=== PATIENT | male | born 1960 | race Caucasian/White ===

== ENCOUNTER → 2017-09-07 07:18 | Outpatient (CLI) | payer BC, SELFPAY ==
[2017-09-07 08:57] LABS: AST(SGOT) 15 U/L (15-37); Alanine Aminotransfer ALT/SGPT 32 U/L (16-61); Albumin, Serum 3.5 g/dL (3.2-5.0); Alkaline Phosphatase 83 U/L (45-117); Bilirubin, Direct 0.06 mg/dL (0.00-0.30); Cholesterol 108 mg/dL (200); Globulin 3.2 g/dL (2.2-4.2); High Density Lipoprotein 33 mg/dL; Protein, Total 6.7 g/dL (6.4-8.2); Triglycerides 140 mg/dL; Very Low Density Lipoprotein 28 mg/dL (5-40)
== END ==
PROVIDERS: Visit Provider Physician Assistant Medical
DX: J20.9 Acute bronchitis, unspecified (principal); Z79.899 Other long term (current) drug therapy; I10 Essential (primary) hypertension; I25.10 Atherosclerotic heart disease of native coronary artery without angina pectoris; E78.5 Hyperlipidemia, unspecified; I25.2 Old myocardial infarction; R50.9 Fever, unspecified; Z95.818 Presence of other cardiac implants and grafts
CPT/HCPCS: 36415; 80061; 80076

== ENCOUNTER → 2018-04-12 07:12 | Outpatient (CLI) | payer BC, SELFPAY ==
[2018-03-29 15:56] VITALS: BMI 33.7
[2018-04-12 08:08] LABS: AST(SGOT) 23 U/L (15-37); Alanine Aminotransfer ALT/SGPT 48 U/L (16-61); Albumin, Serum 3.7 g/dL (3.2-5.0); Alkaline Phosphatase 82 U/L (45-117); Anion Gap 6 (5-15); BUN 14 mg/dL (7-18); Bilirubin, Direct 0.13 mg/dL (0.00-0.30); Calcium,Total 8.5 mg/dL (8.5-10.1); Chloride 105 mmol/L (98-107); Cholesterol 115 mg/dL (200); Creatinine, Serum 0.93 mg/dL (0.70-1.30); EST Glomerular Filtration Rate 88 mL/min (>60); Est Glom Filt Rate - Afr Amer 107 mL/min (>60); Globulin 3.1 g/dL (2.2-4.2); Glucose 129 mg/dL (74-106); High Density Lipoprotein 30 mg/dL; Potassium 4.4 mmol/L (3.5-5.1); Protein, Total 6.8 g/dL (6.4-8.2); Sodium Level 138 mmol/L (136-145); Triglycerides 192 mg/dL; Very Low Density Lipoprotein 38 mg/dL (5-40)
== END ==
PROVIDERS: Referring Provider Physician Assistant Medical; Visit Provider Physician Assistant Medical
DX: E78.5 Hyperlipidemia, unspecified (principal); I25.10 Atherosclerotic heart disease of native coronary artery without angina pectoris; I10 Essential (primary) hypertension
CPT/HCPCS: 36415; 80048; 80061; 80076

== ENCOUNTER → 2018-10-24 07:10 | Outpatient (CLI) | payer BC, SELFPAY ==
[2018-03-29 15:56] VITALS: BMI 33.7
[2018-10-24 08:03] LABS: AST(SGOT) 13 U/L (15-37); Alanine Aminotransfer ALT/SGPT 32 U/L (16-61); Albumin, Serum 3.8 g/dL (3.2-5.0); Alkaline Phosphatase 93 U/L (45-117); Cholesterol 115 mg/dL (200); Globulin 3.1 g/dL (2.2-4.2); High Density Lipoprotein 36 mg/dL; Protein, Total 6.9 g/dL (6.4-8.2); Triglycerides 179 mg/dL; Very Low Density Lipoprotein 36 mg/dL (5-40)
== END ==
PROVIDERS: Referring Provider Physician Assistant Medical; Visit Provider Physician Assistant Medical
DX: E78.5 Hyperlipidemia, unspecified (principal)
CPT/HCPCS: 36415; 80061; 80076

== ENCOUNTER → 2019-11-14 07:27 | Outpatient (CLI) | payer BC, SELFPAY ==
[2018-10-24 15:55] VITALS: BMI 32.6
[2019-11-14 09:21] LABS: AST(SGOT) 28 U/L (15-37); Alanine Aminotransfer ALT/SGPT 62 U/L (16-61); Albumin, Serum 3.7 g/dL (3.2-5.0); Alkaline Phosphatase 91 U/L (45-117); Bilirubin, Direct 0.18 mg/dL (0.00-0.30); Cholesterol 113 mg/dL (200); Globulin 3.3 g/dL (2.2-4.2); High Density Lipoprotein 30 mg/dL; Triglycerides 147 mg/dL; Very Low Density Lipoprotein 29 mg/dL (5-40)
== END ==
PROVIDERS: Referring Provider Specialist; Visit Provider Specialist
DX: E78.00 Pure hypercholesterolemia, unspecified (principal)
CPT/HCPCS: 36415; 80061; 80076

== ENCOUNTER 2020-06-14 09:02 | Inpatient (IN) | payer BC, SELFPAY ==
[2019-11-14 14:17] VITALS: BMI 32.6
[2020-06-14] VITALS (14 sets, daily range): BP systolic 127–166; BP diastolic 70–128; PULSE 71–97; RESP 13–20; TEMP 36.6–37; O2SAT 96–98; BMI 33.8; BMI 32.5
--- NOTE | 2020-06-14 09:05 | CT_ITS ---
STUDY: CT HEAD STROKE PROTOCOL W/O CONTRAST INJECTION REASON FOR EXAM: Male, 60 years old. Neuro deficit, acute, stroke - ataxia L arm RADIATION DOSAGE (If Supplied By Facility): CTDIvol = ( 44.99 ) mGy, DLP = ( 846.73 ) mGycm TECHNIQUE: Transaxial CT imaging of the brain was performed without administration of intravenous contrast material. Individualized dose optimization techniques were used for this CT. COMPARISON: No relevant priors. FINDINGS: Normal soft tissue structures. Normal calvarium. Normal size ventricles and extra-axial spaces for the patient''s age. There is a 9.7 mm x 8.4 mm lacuna in the medial anterior aspect of the right temporal lobe. Tiny lacuna in the posterior limb of the right internal capsule. Normal brainstem. Normal cerebellum. There is no intracranial hemorrhage. There are no findings of an acute ischemic infarction. Normal visualized paranasal sinuses. CT/STROKE Brain/Head without Cont IMPRESSION: Tiny lacunar is seen in the posterior limb of the left internal capsule. 9.7 mm x 8.4 cm focal area of decreased attenuation in the medial aspect of the right temporal lobe. N.B. : The above information has been verbally conveyed by Yovani Michelle MD to Letitia Tirado on 06/14/2020 09:23:19 (ET). Electronically Signed: Yovani Michelle MD at 9:24 EDT , Service support ,
--- NOTE | 2020-06-14 09:05 | EKG12_ITS ---
Test Reason : STROKE Blood Pressure : / mmHG Vent. Rate : 090 BPM Atrial Rate : 090 BPM P-R Int : 144 ms QRS Dur : 076 ms QT Int : 368 ms P-R-T Axes : 062 034 052 degrees QTc Int : 450 ms Normal sinus rhythm Normal ECG Confirmed by MIA SU, SUN ([id number]), photographic editor JOSE IVERSON ([id number]) on 06/18/2020 10:53:10 AM Referred By: MARCELA Confirmed By:SUN BELLAMY MD
--- NOTE | 2020-06-14 09:06 | CT_ITS ---
STUDY: CTA HEAD AND NECK WITH CONTRAST REASON FOR EXAM: Male, 60 years old. Neuro deficit, acute, stroke suspected RADIATION DOSAGE (If Supplied By Facility): CTDIvol = ( 19.96 ) mGy, DLP = ( 732.12 ) mGycm TECHNIQUE: CT angiography was performed with a multi-detector CT scanner. Data acquisition was obtained from the skull base through the vertex following intravenous administration of IV 100mL Isovue-[id number]. MIP images were reconstructed from the axial data set. Post-processing of the angiographic images was performed, with multiplanar reformation and 3D reconstruction. Individualized dose optimization techniques were used for this CT. COMPARISON: No relevant priors. FINDINGS: Normal bilateral petrous carotid arteries. There is calcified plaque formation of the right cavernous carotid artery, without a cross-sectional luminal stenosis. There is calcified plaque formation of the left cavernous carotid artery, without a cross-sectional luminal stenosis. Normal right A1 segments of the anterior cerebral artery. Normal left A1 segments of the anterior cerebral artery. Normal intact anterior communicating artery (ACOM). Normal bilateral A2 segments of the anterior cerebral arteries. Normal right M1 and M2 segments of the middle cerebral arteries, with a normal M1 bifurcation. Normal left M1 and M2 segments of the middle cerebral arteries, with a normal M1 bifurcation. Normal right posterior communicating artery (PCOM). Normal left posterior communicating artery (PCOM). Normal bilateral vertebral arteries. Normal basilar artery with a normal basilar bifurcation. The visualized bilateral superior cerebellar (SCA) arteries are normal. Normal bilateral P1, P2 and visualized P3 segments of the posterior cerebral arteries. There is no demonstrated aneurysm of the [place] of [place]. There is no demonstrated abnormality of the visualized brain. Mild enlargement of the right lobe of the thyroid with a questionable 2.5 cm x 2.1 cm nodule in the inferior aspect of the right lobe of the thyroid. AORTIC ARCH: Normal visualized aortic arch. Normal origins of the brachiocephalic, left common carotid, and left subclavian arteries. RIGHT CAROTID ARTERIES: Normal right common carotid artery (CCA). Normal right common carotid bulb. There is extensive atherosclerotic plaque formation of the origin of the right internal carotid artery with an estimated stenosis of greater than 70%. Normal visualized cervical portion of the right internal carotid artery. Normal origin of the right external carotid artery (ECA). LEFT CAROTID ARTERIES: Normal left common carotid artery (CCA). Normal left common carotid bulb. There is mild atherosclerotic plaque formation of the origin of the left internal carotid artery with less than 50% cross sectional diameter stenosis. Normal visualized cervical portion of the left internal carotid artery. Normal origin of the left external carotid artery (ECA). VERTEBRAL ARTERIES: Normal bilateral vertebral arteries. CT/STROKE CTA Head AND Neck W/Con IMPRESSION: Calcific plaque at the origin of the right internal carotid artery causing greater than 70% narrowing. N.B. : The above information has been verbally conveyed by Yovani Michelle MD to Letitia Tirado on 06/14/2020 09:40:06 (ET). Electronically Signed: Yovani Michelle MD at 9:40 EDT , Service support ,
[2020-06-14 09:13] LABS: Absolute Neutrophil Count 6.1 X10^3/uL (2.0-7.7); Basophil# 0.03 X10^3/uL; Basophil% 0.3 % (0-1); Eosinophil# 0.08 X10^3/uL; Eosinophils% 0.9 % (0-5); Hematocrit 48.7 % (40-54); Mean Corp Hgb Conc 32.9 g/dL (32-36); Mean Corpuscular Hgb 31.4 pg (27.0-32.0); Mean Corpuscular Volume 95.5 fL (80-94); Mean Platelet Vol. 9.4 fl (6.2-12.0); Monocyte# 0.69 X10^3/uL; Monocyte% 7.5 % (0-10); NRBC Flagged by Analyzer 0 % (0-5); Neutrophil # 6.12 X10^3/uL (2.7-7.7); Neutrophil % 66.9 % (47-70); Platelet Count 251 K/mm3 (150-450); RBC Distribution Width CV 12.5 % (11.6-14.6); RBC Distribution Width SD 44.3 fl (35.1-43.9); White Blood Count 9.2 K/mm3 (4.4-11.0)
[2020-06-14 09:19] LABS: Prothrombin Time (Protime)PT. 12.1 SECONDS (11.7-14.9)
[2020-06-14 09:20] LABS: Bedside Glucose 212 mg/dL (70-110)
[2020-06-14 09:20] LABS: Partial Thromboplast Time 24.8 Seconds (24.1-36.2)
--- NOTE | 2020-06-14 09:24 | ED.VIS.STROK ---
HPI History of Present Illness Chief Complaint: Neuro S/Sx Informant: patient Narrative Narrative: Patient is a 60-year-old male with history of cardiac disease presenting with concern of difficulty moving/controlling his left arm. Patient states he woke up around 5:45 AM. He states that he slept with his left arm under his pillow. When he got up he states his arm was moving but he could not control it. Everything seem to go back to normal but then about an hour prior to arrival he was on the computer and he again felt that he could not control his arm. He also felt that he was dragging his left foot more than normal. Patient came to the emergency room. His symptoms started 1 hour prior to arrival. Patient [place] any sustained vision changes or change in speech. Denies any history of stroke. He did take 324 mg of aspirin prior to arrival. Denies any history of stroke. Is right-hand dominant. Prior similar symptoms: No PFSH PFS Medical History (Updated 06/14/20 @ 10:[address] 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) HTN (hypertension) Hyperlipidemia Home Medications aspirin 81 mg tablet,delayed release 81 mg PO QDAY 09/03/17 [History Last Taken Unknown] nitroglycerin 0.4 mg sublingual tablet 0.4 mg SUBLINGUAL Q5-15M PRN #25 tab 10/24/18 [Rx Last Taken Unknown] metoprolol tartrate 25 mg tablet 25 mg PO BID #180 tab 12/19/18 [Rx Last Taken Unknown] atorvastatin 40 mg tablet 40 mg PO QHS #90 tab 03/01/20 [Rx Last Taken Unknown] cholecalciferol (vitamin D3) 50 mcg (2,000 unit) capsule 2,000 unit PO DAILY #90 cap 03/01/20 [Rx Last Taken Unknown] lisinopril 40 mg tablet 40 mg PO QDAY #90 tab 03/01/20 [Rx Last Taken Unknown] Allergy/AdvReac Type Severity Reaction Status Date / Time No Known Allergies Allergy Verified 11/14/19 14:09 Family History Father , Age 55 Asbestos exposure Cancer Mother , Age 71 Lung cancer Surgical History Stented coronary artery (03/2008) Social History Smoking Status: Current some day smoker how long ago did patient quit smokin months ago quit status: has quit before alcohol intake: current details: rarely substance use type: does not use caffeine: Yes Type: carbonated beverages Number of servings: 3 ROS ROS ED Constitutional Constitutional ED: Denies chills or fever(s) Eyes Eyes: Denies blurry vision or change in vision ENT ENT ED: Denies change in voice or vertigo Cardiovascular Cardiovascular: Denies chest pain or hypertension Respiratory/Chest Respiratory/Chest: Denies chest tightness, shortness of breath at rest or other Gastrointestinal Gastrointestinal: Denies nausea or vomiting Genitourinary Genitourinary ED: Denies dysuria or hematuria Musculoskeletal Musculoskeletal: Denies abnormal gait, difficulty walking or muscle weakness Integumentary Denies new lesions or rash Neurologic Neurologic: Reports paresthesias and weakness; Denies headache(s) Psychiatric Psychiatric: Denies anxiety or confusion EXAM Physical Exam Const Vital Signs: 06/14/20 09:11 Temperature 98.6 F Temperature Source Temporal Pulse Rate 87 Respiratory Rate 19 H Blood Pressure 164/90 H Blood Pressure Mean 114 Pulse Ox 98 Oxygen Delivery Method Room Air Positive well nourished and well developed General Appearance ED: active, cooperative, comfortable and well developed HEENT Reports normocephalic, TM's clear and moist mucous membranes atraumatic Nose: external nose normal Tympanic Membrane ED: Yes TM's clear Eyes PERRL and EOMs intact bilaterally Eyes Narrative: No nystagmus Neck full ROM, No nuchal rigidity and no meningeal signs Chest Wall inspection of chest normal Resp normal respiratory effort and normal air movement Cardio regular rate and regular rhythm GI normal to inspection, nondistended, normoactive bowel sounds Extremity normal to inspection, full ROM and normal capillary refill Neuro oriented x3, CN's II-XII intact bilaterally and no sensory deficits noted Neuro Narrative: Ataxia with [id number] of the left upper extremity. No truncal ataxia or lower extremity ataxia noted. No neglect appreciated. NIH equals 1, see NIH below. Sensorium / Orientation: alert Speech: speech normal Motor Exam: strength 5/5 throughout Psych mental status grossly normal and thought process normal STROKE Vital Signs/Narrative: Vital Signs Temp Pulse Resp BP Pulse Ox 06/14/20 09:11 98.6 F 87 19 H 164/90 H 98 NIHSS Initial: 1a Level of Consciousness: 0 1b LOC Questions (Score 2 if aphasic/stupor): 0 1c LOC Commands (Only score 1st attempt): 0 2 Best Gaze (If aphasic, use reflexive mvmts.): 0 3 Visual: 0 4 Facial Palsy: 0 5 Motor Arm Right (UN = amputation/fusion): 0 5 Motor Arm Left: 0 6 Motor Leg Right: 0 6 Motor Leg Left: 0 7 Limb ataxia (Only + if out of proportion): 1 (LUE) 8 Sensory (Aphasia/stupor=0 or 1, coma=2): 0 9 Best Language: 0 10 Dysarthria (mute, coma=2, intubated=UN): 0 11 Extinction and Inattention (only scored if +): 0 Total Score: 1 MDM MDM MDM Narrative Medical decision making narrative: Patient is evaluated for difficulty controlling his left arm. He does have associated ataxia. He does not have any other ataxia, vertigo or any other neurologic symptoms. His nature is 1. Stroke alert is called however I do not think he needs TPA. There is a delay in telestroke however patient is evaluated by teleneurology. CT of the brain shows old lacunar infarcts. Patient denies any prior strokes or any prior neurologic symptoms. Patient evaluated by teleneurology who agrees that his he does not require TPA. His NIH is now 0. Patient be admitted to hospitalist service for further stroke evaluation including MRI. Patient agreeable to splenic care. He is stable while in the ER. Lab Data Attestation: I reviewed the patient's lab results. Labs: Laboratory Results - last 24 hr 06/14/20 06/14/20 06/14/20 09:05 09:05 09:05 WBC 9.2 RBC 5.10 Hgb 16.0 Hct 48.7 MCV 95.5 H MCH 31.4 MCHC 32.9 RDW Std Deviation 44.3 H RDW Coeff of [place] 12.5 Plt Count 251 MPV 9.4 Immature Gran % (Auto) 0.400 Neut % (Auto) 66.9 Lymph % (Auto) 24.0 [place] % (Auto) 7.5 Eos % (Auto) 0.9 Baso % (Auto) 0.3 Absolute Neuts (auto) 6.1 Absolute Lymphs (auto) 2.20 Nucleated RBC % 0 PT 12.1 INR 1.0 APTT 24.8 Sodium 139 Potassium 3.9 Chloride 103 Carbon Dioxide 31.0 Anion Gap 5 BUN 13 Creatinine 0.98 Estim Creat Clear Calc 87.98 Est GFR (MDRD) Af Amer 100 Est GFR (MDRD) Non-Af 83 BUN/Creatinine Ratio 13.2 Glucose 210 H Calcium 8.8 Troponin I < 0.015 POC Glucose 06/14/20 09:18 WBC RBC Hgb Hct MCV MCH MCHC RDW Std Deviation RDW Coeff of [place] Plt Count MPV Immature Gran % (Auto) Neut % (Auto) Lymph % (Auto) [place] % (Auto) Eos % (Auto) Baso % (Auto) Absolute Neuts (auto) Absolute Lymphs (auto) Nucleated RBC % PT INR APTT Sodium Potassium Chloride Carbon Dioxide Anion Gap BUN Creatinine Estim Creat Clear Calc Est GFR (MDRD) Af Amer Est GFR (MDRD) Non-Af BUN/Creatinine Ratio Glucose Calcium Troponin I POC Glucose 212 H Radiography Chest X-Ray - ED: 1 View, Read by ED Physician, Read by Radiologist and No Acute Disease Diagnostic Testing: Radiology Impression Brain CT 06/14/20 09:05 IMPRESSION: Tiny lacunar is seen in the posterior limb of the left internal capsule. 9.7 mm x 8.4 cm focal area of decreased attenuation in the medial aspect of the right temporal lobe. N.B. : The above information has been verbally conveyed by Yovani Michelle MD to Letitia Tirado on 06/14/2020 09:23:19 (ET). Electronically Signed: oYvani Michelle MD at 9:24 EDT , Service support , ADDENDUM: 06/14/20 0931 IMPRESSION: Tiny lacunar is seen in the posterior limb of the left internal capsule. 9.7 mm x 8.4 cm focal area of decreased attenuation in the medial aspect of the right temporal lobe. N.B. : The above information has been verbally conveyed by Yovani Michelle MD to Letitia Tirado on 06/14/2020 09:23:19 (ET). Electronically Signed: Yovani Michelle MD at 9:24 EDT , Service support , Head/Neck CTA 06/14/20 09:06 IMPRESSION: Calcific plaque at the origin of the right internal carotid artery causing greater than 70% narrowing. N.B. : The above information has been verbally conveyed by Yovani Michelle MD to Letitia Celestino on 06/14/2020 09:40:06 (ET). Electronically Signed: Yovani Michelle MD at 9:40 EDT , Service support , ADDENDUM: 06/14/2047 IMPRESSION: Calcific plaque at the origin of the right internal carotid artery causing greater than 70% narrowing. N.B. : The above information has been verbally conveyed by Yovani Michelle MD to Letitiachidi Lindajames on 06/14/2020 09:40:06 (ET). Electronically Signed: Yovani Michelle MD at 9:40 EDT , Service support , Chest X-Ray 06/14/20 09:36 IMPRESSION: Hyperinflation. The lungs are clear. Electronically Signed: Yovani Michelle MD at 10:00 EDT , Service support , Rhythm Strip Rhythm Strip: Sinus Rhythm Rate: 90 Ectopy: None EKG Initial EKG: Attestation: I personally reviewed and interpreted this EKG as follows: Interpretation: Sinus Rhythm Comments: Normal sinus rhythm rate of 90 Normal axis Normal intervals Normal ST segments Artifact in lead V3 Stroke Documentation Questions Stroke Team Activated: Yes Reviewed Inclusion/Exclusion criteria: Yes Was Patient considered for Endovascular Intervention?: No IV Alteplase (t-PA) Administered: No Discharge Plan Triage Chief Complaint: Neuro S/Sx ED Provider: Letitia Tirado Dx/Rx/DC Orders Clinical Impression: Ataxia of left upper extremity, Stroke-like symptom, Essential hypertension, Atherosclerotic heart disease of [place] coronary artery without angina pectoris Prescriptions: No Action aspirin [Adult Aspirin Regimen] 81 mg tablet,delayed release (DR/EC) 81 mg PO QDAY RF: 0 nitroglycerin [Nitrostat] 0.4 mg tablet, sublingual 0.4 mg SUBLINGUAL Q5-15M PRN (Reason: chest pain) Qty: 25 RF: 3 metoprolol tartrate 25 mg tablet 25 mg PO BID Qty: 180 RF: 3 atorvastatin 40 mg tablet 40 mg PO QHS Qty: 90 RF: 3 lisinopril 40 mg tablet 40 mg PO QDAY Qty: 90 RF: 3 cholecalciferol (vitamin D3) 50 mcg (2,000 unit) capsule 2,000 unit PO DAILY Qty: 90 RF: 3 Primary Care Provider: Care Physician,No Primary Referrals: Care Physician,No Primary [Primary Care Provider] - Disposition Disposition: Acute Care Hospital [facility]
[2020-06-14 09:29] LABS: Anion Gap 5 (5-15); BUN 13 mg/dL (7-18); BUN/Creat Ratio 13.2 RATIO (10-20); Calcium,Total 8.8 mg/dL (8.5-10.1); Chloride 103 mmol/L (98-107); Creatinine, Serum 0.98 mg/dL (0.70-1.30); EST Glomerular Filtration Rate 83 mL/min (>60); Est Glom Filt Rate - Afr Amer 100 mL/min (>60); Estimated Creatinine Clearance 87.98 ml/min; Glucose 210 mg/dL (74-106); Potassium 3.9 mmol/L (3.5-5.1); Sodium Level 139 mmol/L (136-145)
--- NOTE | 2020-06-14 09:36 | RAD_ITS ---
STUDY: X-RAY CHEST REASON FOR EXAM: Male, 60 years old. Neuro deficit, acute, stroke suspected TECHNIQUE: Single AP portable view of the chest. COMPARISON: None. FINDINGS: EKG electrodes are seen. Hyperinflation. The lungs are clear. There is no demonstrated pleural abnormality. Normal size heart. Normal mediastinum and charles. Normal visualized pulmonary arteries. Normal visualized aortic arch and descending thoracic aorta. Normal visualized thoracic spine. Normal visualized ribs, clavicles, and shoulders. There is no demonstrated abnormality of the visualized soft tissue structures of the upper abdomen. RAD/Chest 1 View IMPRESSION: Hyperinflation. The lungs are clear. Electronically Signed: Yovani Michelle MD at 10:00 EDT , Service support ,
--- NOTE | 2020-06-14 09:39 | ED.RN ---
THIS NURSE CALLED BACK [facility] SOON THE PT GOT BACK FROM CT AT 09,PER [facility] THE NEUROLOGIST IS WITH ANOTHER PT. [facility] CALLED BACK TO LET US KNOW THAT THEY ARE STILL BUSY WITH OTHER PT'S. THE PT HAS STILL NOT SPOKEN WITH THE NEUROLOGIST AT 09.
--- NOTE | 2020-06-14 10:21 | PCM.HP.STD ---
HPI - General General Date of Admission: 06/14/20 Chief Complaint: Left upper extremity numbness - 1 day HPI Narrative TK MITCHELL, is a 60 M who presents with numbness of the left upper extremity noticed at 7 AM. Patient has history of CAD status post stents. He was in his usual state of health until this morning around 7 AM when he noted that his left arm was numb and it felt like he had slept on it. He denied any dizziness or palpitations or chest pain or weakness in any of his extremities. At the time of being seen, symptoms were starting to come back again. He denied any history of stroke. No recent medications. His vitals in the ED initially show temperature 166/128, heart rate 96, temperature 98.3 F, respiratory 13, saturating 96% on room air. His admitting blood work was unremarkable. Initial CT of the head was unremarkable except for tiny lacunar changes seen in the posterior limb of the left internal capsule, 9.7 mm x 8.4 mm lacunae in the medial anterior aspect of the right temporal lobe. CT of the head shows more than 70% narrowing of the right internal carotid artery origin. Admitting chest x-ray is unremarkable. [facility] Medical History Atherosclerotic heart disease of [place] coronary artery without angina pectoris Chest pain Essential hypertension History of inferior wall myocardial infarction (04/06/08) HTN (hypertension) Hyperlipidemia Myocardial infarct Smoker Home Medications aspirin 81 mg tablet,delayed release 81 mg PO QDAY 09/03/17 [History Last Taken 06/14/20] nitroglycerin 0.4 mg sublingual tablet 0.4 mg SUBLINGUAL Q5-15M PRN #25 tab 10/24/18 [Rx Last Taken Unknown] atorvastatin 40 mg PO DAILY 06/14/20 [History Last Taken 06/13/20] cholecalciferol (vitamin D3) 2,000 unit PO DAILY 06/14/20 [History Last Taken 06/13/20] lisinopril 40 mg PO QDAY 06/14/20 [History Last Taken 06/13/20] metoprolol tartrate 25 mg PO BID 06/14/20 [History Last Taken 06/13/20] Allergy/AdvReac Type Severity Reaction Status Date / Time No Known Allergies Allergy Verified 11/14/19 14:09 Family History Father , Age 55 Asbestos exposure Cancer Mother , Age 71 Lung cancer Surgical History Stented coronary artery (03/2008) Social History Smoking Status: Current some day smoker how long ago did patient quit smokin months ago quit status: has quit before alcohol intake: current details: rarely substance use type: does not use caffeine: Yes Type: carbonated beverages Number of servings: 3 ROS ROS Narrative Constitutional:. Denies: Malaise, Weakness, Fatigue, Anorexia, Chills, Fever, Night Sweats, Weight Change Eyes: Denies: Blurred vision, Cataracts, Conjunctivae Inflammation, Pain, Redness, Vision Change HEENT: Denies: Difficulty Hearing, Difficulty Swallowing, Head Aches, Hearing Changes, Sinus Congestion, Sinus Drainage Cardiovascular: Denies: Chest Pain, Orthopnea, Palpitations Respiratory: Denies: Cough, Shortness of breath at rest, Sputum production Gastrointestinal: Denies: Abdominal Pain, Nausea, Vomiting Genitourinary: Denies: Dysuria Musculoskeletal: Denies: Joint Pain, Joint stiffness, Joint swelling, Joint Tenderness Skin: Denies: Rash, Wounds Neurological: See HPI Vital Signs Vital Signs Vital Signs: 06/14/20 09:11 Temperature 98.6 F Temperature Source Temporal Pulse Rate 87 Respiratory Rate 19 H Blood Pressure 164/90 H Blood Pressure Mean 114 Pulse Ox 98 Oxygen Delivery Method Room Air Physical Exam Narrative Physical exam: General: Alert, Oriented x3, Cooperative, No apparent distress, Well developed HEENT: Atraumatic Oral: Moist Mucosa Neck: Supple Lungs: Clear to auscultation Cardiovascular: HS I+II, regular, no murmurs Abdomen: Bowel Sounds Present, Soft, Non Tender Extremities: No edema Skin: No rashes, No breakdown Neurological: Grossly intact except for decreased numbness in the left upper extremity Psych/Mental Status: Appropriate Lab / Micro Data Result Diagrams: 06/14/20 09:05 06/14/20 09:05 Labs: Laboratory Results - last 24 hr 06/14/20 06/14/20 06/14/20 09:05 09:05 09:05 WBC 9.2 RBC 5.10 Hgb 16.0 Hct 48.7 MCV 95.5 H MCH 31.4 MCHC 32.9 RDW Std Deviation 44.3 H RDW Coeff of [place] 12.5 Plt Count 251 MPV 9.4 Immature Gran % (Auto) 0.400 Neut % (Auto) 66.9 Lymph % (Auto) 24.0 [place] % (Auto) 7.5 Eos % (Auto) 0.9 Baso % (Auto) 0.3 Absolute Neuts (auto) 6.1 Absolute Lymphs (auto) 2.20 Nucleated RBC % 0 PT 12.1 INR 1.0 APTT 24.8 Sodium 139 Potassium 3.9 Chloride 103 Carbon Dioxide 31.0 Anion Gap 5 BUN 13 Creatinine 0.98 Estim Creat Clear Calc 87.98 Est GFR (MDRD) Af Amer 100 Est GFR (MDRD) Non-Af 83 BUN/Creatinine Ratio 13.2 Glucose 210 H Calcium 8.8 Troponin I < 0.015 POC Glucose 06/14/20 09:18 WBC RBC Hgb Hct MCV MCH MCHC RDW Std Deviation RDW Coeff of [place] Plt Count MPV Immature Gran % (Auto) Neut % (Auto) Lymph % (Auto) [place] % (Auto) Eos % (Auto) Baso % (Auto) Absolute Neuts (auto) Absolute Lymphs (auto) Nucleated RBC % PT INR APTT Sodium Potassium Chloride Carbon Dioxide Anion Gap BUN Creatinine Estim Creat Clear Calc Est GFR (MDRD) Af Amer Est GFR (MDRD) Non-Af BUN/Creatinine Ratio Glucose Calcium Troponin I POC Glucose 212 H Rhythm Strip Rhythm Strip: Sinus Rhythm Rate: 90 Ectopy: None Radiology Impression Brain CT 06/14/20 09:05 IMPRESSION: Tiny lacunar is seen in the posterior limb of the left internal capsule. 9.7 mm x 8.4 cm focal area of decreased attenuation in the medial aspect of the right temporal lobe. N.B. : The above information has been verbally conveyed by Yovani Michelle MD to Letitia Tirado on 06/14/2020 09:23:19 (ET). Electronically Signed: Yovani Michelle MD at 9:24 EDT , Service support , ADDENDUM: 06/14/20 0931 IMPRESSION: Tiny lacunar is seen in the posterior limb of the left internal capsule. 9.7 mm x 8.4 cm focal area of decreased attenuation in the medial aspect of the right temporal lobe. N.B. : The above information has been verbally conveyed by Yovani Michelle MD to Letitia Tirado on 06/14/2020 09:23:19 (ET). Electronically Signed: Yovani Michelle MD at 9:24 EDT , Service support , Head/Neck CTA 06/14/20 09:06 IMPRESSION: Calcific plaque at the origin of the right internal carotid artery causing greater than 70% narrowing. N.B. : The above information has been verbally conveyed by Yovani Michelle MD to Letitia Tirado on 06/14/2020 09:40:06 (ET). Electronically Signed: Yovani Michelle MD at 9:40 EDT , Service support , ADDENDUM: 06/14/20 0947 IMPRESSION: Calcific plaque at the origin of the right internal carotid artery causing greater than 70% narrowing. N.B. : The above information has been verbally conveyed by Yovani Michelle MD to Letitia Tirado on 06/14/2020 09:40:06 (ET). Electronically Signed: Yovani Michelle MD at 9:40 EDT , Service support , Chest X-Ray 06/14/20 09:36 IMPRESSION: Hyperinflation. The lungs are clear. Electronically Signed: Yovani Michelle MD at 10:00 EDT , Service support , Assessment & Plan Assessment/Plan (1) Carotid stenosis, right: Status: Acute Code(s): I65.21 - Occlusion and stenosis of right carotid artery (2) Ataxia of left upper extremity: Status: Acute Code(s): R27.0 - Ataxia, unspecified (3) Nicotine dependence: Status: Acute Code(s): F17.200 - Nicotine dependence, unspecified, uncomplicated (4) CVA (cerebral vascular accident): Status: Acute Code(s): I63.9 - Cerebral infarction, unspecified Plan: 60-year-old male with multiple cardiovascular comorbidities including CAD status post stent, chronic smoker who comes in complaining of left upper extremity numbness. CT of the head and neck was suggestive of lacunar infarcts in the posterior limb of the internal capsule and also right temporal region. He also had right internal carotid artery origin stenosis more than 70% We will admit to PCU, stroke work-up MRI brain, 2D echo, lipid profile, HbA1c PT/OT/ST to evaluate and treat Cardiac diet Vascular surgery consult Depending on the findings of his MRI we will get SOC consult Multi Select Codes Visit Charges Observation E&M Codin Initial observation care L3
--- NOTE | 2020-06-14 11:09 | MRI_ITS ---
STUDY: MRI BRAIN WITHOUT CONTRAST REASON FOR EXAM: Male, 60 years old. neurodeficits left arm weakness TECHNIQUE: Standardized multiplanar fat and water weighted pulse sequences were obtained. COMPARISON: Head CT dated JUNE 14, 2020 FINDINGS: There is mild cerebral atrophy with widening of the extra-axial spaces and ventricular dilatation. There are a limited number of small white matter hyperintensities, distributed throughout the deep white matter tracts of the cerebral hemispheres, consistent with mild chronic white matter ischemic changes. A tiny acute infarct is present in the superior aspect of the right parietal lobe in the yun radiata see images 23 and 24 series #4. Normal T2* images of the brain without demonstrated susceptibility artifact. There is no demonstrated hemosiderin stain. No hydrocephalus is seen. Benign perivascular cystic spaces of the right medial temporal midbrain junction. Normal bilateral basal ganglia. Normal thalami. There is no extra-axial fluid accumulation. Normal flow voids within the major intracranial circulation suggesting patency by spin echo criteria. Normal sella turcica, pituitary gland, infundibular stalk, optic chiasm and hypothalamus. Normal tectal plate and pineal gland. Normal midbrain, tobin and medulla. Normal cerebellum. Normal basal cisterns. Normal bilateral temporal bones. Normal bilateral internal auditory canals. No demonstrated orbital abnormality, within the constraints of a routine brain study. Normal visualized paranasal sinuses. Normal calvarium and skull base. Normal visualized soft tissue structures. Normal visualized upper cervical spine. MRI/Brain without Contrast IMPRESSION: 1. A tiny acute infarct is present in the superior aspect of the right parietal lobe in the yun radiata see images 23 and 24 series #4. N.B. : The above information has been verbally conveyed by Duncan Saldaña MD to DOMONIQUE Minaya RN, on 06/14/2020 19:13:17 (ET). Electronically Signed: Duncan Saldaña MD at 19:14 EDT , Service support ,
[2020-06-14] MEDS: 0.9% Normal Saline 1,000 ML 75 ML IV (11:25)
--- NOTE | 2020-06-14 14:24 | CON.PCM.SX_ITS ---
Assessment & Plan Assessment/Plan (1) Ataxia of left upper extremity: Status: Acute Code(s): R27.0 - Ataxia, unspecified (2) Stroke-like symptom: Status: Acute Code(s): R29.90 - Unspecified symptoms and signs involving the nervous system (3) Carotid stenosis, right: Status: Acute Code(s): I65.21 - Occlusion and stenosis of right carotid artery Plan: 60-year-old gentleman with findings consistent with right hemispheric TIA. Symptoms resolved. Carotid imaging suggest calcific plaque with greater than 70% stenosis of the right internal carotid however unfortunately images are of poor quality. The patient currently has been taken for an MRI. I recommend that we obtain carotid duplex imaging. He has ongoing medical care and neurology care. I am assuming his antiplatelet therapy will be intensified. He is hemoconcentrated with hemoglobin of 16 he is got ongoing cigarette tobacco use. He has history of hyperlipidemia hyperten josi and previous myocardial infarction. Medical maximization of his care would be indicated. What I can detect on the neck CTA is that the internal carotid is quite tortuous. Further recommendations will be made based upon the carotid duplex imaging. If his medical management can be maximized anticipate seeing him in short-term follow-up in the office this coming week. I appreciate the opportunity of assisting with the surgical care Castillo Weiss M.D., F.A.C.S. HPI Consult Data Date of Consult: 06/14/20 HPI Narrative HPI Narrative: TK MITCHELL, is a 60 M who presents today through the emergency room concerned about some ataxia of his left upper extremity as well as dragging weakness of his left foot. Neuro telemedicine performed. Patient was admitted for evaluation. I have received consult from Dr.Ama Yadav for suspected right carotid occlusive disease and a written compromise surgical consult recommendations will present in the charting. The patient is a long-term cigarette smoker. He continues to smoke at the rate of approximately a pack per week. He has had a previous myocardial infarction and stenting. His previous child welfare director was Dr. Jarred Owens. He has not seen his current child welfare director Dr. Arizmendi. He also does not know the name of his primary care physician.. He has not seen this particular primary care physician yet. 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 Claims that he does not typically have troubles. He claims that occasionally he will wake and after having slept on his left upper extremity and have decreased use. This episode seemed different because he was at the computer when it seemed to suddenly lack coordination. He does not take his blood pressure at home. He does state that he is compliant with his medications which includes low-dose aspirin and atorvastatin therapy in addition to lisinopril and metoprolol. He denies any recent episodes of chest pain. He complains of bilateral shoulder aches and pains. He has back pain when he tries to walk. He does not seem to describe exertional chest pain or shortness of breath. He denies history of DVT This laboratory on admission demonstrates hemoconcentration with a hemoglobin of 16 and hematocrit of 48.7 with a platelet count of 251,000. Coags were normal. BUN 13 creatinine 0.98. Glucose elevated to 210. A brain CT was obtained there is felt to be a small lacunar infarct seen in the posterior limb of the left internal capsule. There is felt to be a 9.7 x 8.4 cm focal area of decreased attenuation in the medial aspect of the right temporal lobe. A head neck CT scan was obtained. It is interpreted as extensive calcific p laque at the proximal right internal carotid artery with greater than 70% stenosis. However unfortunate his exam is of very poor quality. The patient admits to having had a coughing spell during the examination. The patient is just now been taking down for MRI. He notes that he feels his presenting symptoms have resolved [facility] Medical History Atherosclerotic heart disease of [place] coronary artery without angina pectoris Chest pain Essential hypertension History of inferior wall myocardial infarction (04/06/08) HTN (hypertension) Hyperlipidemia Myocardial infarct Smoker Home Medications aspirin 81 mg tablet,delayed release 81 mg PO QDAY 09/03/17 [History Last Taken 06/14/20] nitroglycerin 0.4 mg sublingual tablet 0.4 mg SUBLINGUAL Q5-15M PRN #25 tab 10/24/18 [Rx Last Taken Unknown] atorvastatin 40 mg PO DAILY 06/14/20 [History Last Taken 06/13/20] cholecalciferol (vitamin D3) 2,000 unit PO DAILY 06/14/20 [History Last Taken 06/13/20] lisinopril 40 mg PO QDAY 06/14/20 [History Last Taken 06/13/20] metoprolol tartrate 25 mg PO BID 06/14/20 [History Last Taken 06/13/20] Allergy/AdvReac Type Severity Reaction Status Date / Time No Known Allergies Allergy Verified 11/14/19 14:09 Family History Father , Age 55 Asbestos exposure Cancer Mother , Age 71 Lung cancer Surgical History Stented coronary artery (03/2008) Social History Smoking Status: Current some day smoker how long ago did patient quit smokin months ago quit status: has quit before alcohol intake: current details: rarely substance use type: does not use caffeine: Yes Type: carbonated beverages Number of servings: 3 ROS Constitutional Constitutional: Reports body ache(s) Eyes Eyes: Reports systems reviewed and no addt'l complaints, except as documented ENT HEENT: Reports systems reviewed and no addt'l complaints, except as documented Cardiovascular Cardiovascular: Denies dyspnea at rest Respiratory/Chest Respiratory/Chest: Denies shortness of breath at rest Gastrointestinal Gastrointestinal: Reports systems reviewed and no addt'l complaints, except as documented Musculoskeletal Musculoskeletal: Reports arthralgias, back pain, extremity pain, muscle weakness, numbness and other Details: Numbness left ulnar area of the forearm and fifth digit Integumentary Integumentary: Reports systems reviewed and no addt'l complaints, except as documented Psychiatric Psychiatric: Reports systems reviewed and no addt'l complaints, except as docume nted Physical Exam Const alert, oriented x3 and no apparent distress Nutritional Appearance: obese HEENT normocephalic Eyes General Eye: normal appearance of both eyes Neck Carotids: normal carotid upstroke and other Other Details: Kyphosis noted, anterior neck skin slightly thickened, suntanning noted, nontender, ; Negative for bruit Lymph Lymphatic: Negative for lymphadenopathy Chest Chest Narrative: Increased anterior posterior diameter Resp normal respiratory effort Auscultation: clear to auscultation bilaterally Cardio Cardio Narrative: Bilateral radials and brachials are 3+. Bilateral popliteals 3+ Rate: regular rate Rhythm: regular rhythm GI Palpation: soft; Negative for tender Extremity Extremity Narrative: Venous stasis changes bilateral lower extremities without pitting edema or ulceration Left Lower Extremity: foot and digits Neuro oriented x3 and moves all extremities Psych Speech: normal speech Lab / Micro Data Result Diagrams: 06/14/20 09:05 06/14/20 09:05 Labs: Laboratory Results - last 24 hr 06/14/20 06/14/20 06/14/20 09:05 09:05 09:05 WBC 9.2 RBC 5.10 Hgb 16.0 Hct 48.7 MCV 95.5 H MCH 31.4 MCHC 32.9 RDW Std Deviation 44.3 H RDW Coeff of [place] 12.5 Plt Count 251 MPV 9.4 Immature Gran % (Auto) 0.400 Neut % (Auto) 66.9 Lymph % (Auto) 24.0 [place] % (Auto) 7.5 Eos % (Auto) 0.9 Baso % (Auto) 0.3 Absolute Neuts (auto) 6.1 Absolute Lymphs (auto) 2.20 Nucleated RBC % 0 PT 12.1 INR 1.0 APTT 24.8 Sodium 139 Potassium 3.9 Chloride 103 Carbon Dioxide 31.0 Anion Gap 5 BUN 13 Creatinine 0.98 Estim Creat Clear Calc 87.98 Est GFR (MDRD) Af Amer 100 Est GFR (MDRD) Non-Af 83 BUN/Creatinine Ratio 13.2 Glucose 210 H Calcium 8.8 Troponin I < 0.015 POC Glucose 06/14/20 09:18 WBC RBC Hgb Hct MCV MCH MCHC RDW Std Deviation RDW Coeff of [place] Plt Count MPV Immature Gran % (Auto) Neut % (Auto) Lymph % (Auto) [place] % (Auto) Eos % (Auto) Baso % (Auto) Absolute Neuts (auto) Absolute Lymphs (auto) Nucleated RBC % PT INR APTT Sodium Potassium Chloride Carbon Dioxide Anion Gap BUN Creatinine Estim Creat Clear Calc Est GFR (MDRD) Af Amer Est GFR (MDRD) Non-Af BUN/Creatinine Ratio Glucose Calcium Troponin I POC Glucose 212 H Rhythm Strip Rhythm Strip: Sinus Rhythm Rate: 90 Ectopy: None Radiology Impression Brain CT 06/14/20 09:05 IMPRESSION: Tiny lacunar is seen in the posterior limb of the left internal capsule. 9.7 mm x 8.4 cm focal area of decreased attenuation in the medial aspect of the right temporal lobe. N.B. : The above information has been verbally conveyed by Yovani Michelle MD to Letitia Tirado on 06/14/2020 09:23:19 (ET). Electronically Signed: Yovani Michelle MD at 9:24 EDT , Service support , ADDENDUM: 06/14/20 0931 IMPRESSION: Tiny lacunar is seen in the posterior limb of the left internal capsule. 9.7 mm x 8.4 cm focal area of decreased attenuation in the medial aspect of the right temporal lobe. N.B. : The above information has been verbally conveyed by Yovani Michelle MD to Letitia Tirado on 06/14/2020 09:23:19 (ET). Electronically Signed: Yovani Michelle MD at 9:24 EDT , Service support , Head/Neck CTA 06/14/20 09:06 IMPRESSION: Calcific plaque at the origin of the right internal carotid artery causing greater than 70% narrowing. N.B. : The above information has been verbally conveyed by Yovani Michelle MD to Letitia Tirado on 06/14/2020 09:40:06 (ET). Electronically Signed: Yovani Michelle MD at 9:40 EDT , Service support , ADDENDUM: 06/14/20 0947 IMPRESSION: Calcific plaque at the origin of the right internal carotid artery causing greater than 70% narrowing. N.B. : The above information has been verbally conveyed by Yovani Michelle MD to Letitia Tirado on 06/14/2020 09:40:06 (ET). Electronically Signed: Yovani Michelle MD at 9:40 EDT , Service support , Chest X-Ray 06/14/20 09:36 IMPRESSION: Hyperinflation. The lungs are clear. Electronically Signed: Yovani Michelle MD at 10:00 EDT , Service support ,
--- NOTE | 2020-06-14 14:38 | CDU_ITS ---
Reason For Study: TIA Rt. Velocities/BP Lt. Velocities/BP Prox CCA 122/30 cm/sec. Prox CCA 164/38 cm/sec. Mid CCA 118/33 cm/sec. Mid CCA 125/25 cm/sec. Dist CCA 90/29 cm/sec. Dist CCA 120/34 cm/sec. Prox ICA 105/36 cm/sec. Prox ICA 133/35 cm/sec. Mid ICA 101/38 cm/sec. Mid ICA 130/52 cm/sec. Dist ICA 81/27 cm/sec. Dist ICA 82/32 cm/sec. Rt. ICA/CCA = 0.9. Lt. ICA/CCA = 1.1. Prox ECA 202/19 cm/sec. Prox ECA 178/30 cm/sec. Rt. Vert. 45/15 cm/sec. Lt. Vert. 47/15 cm/sec. Right Extracranial There is intimal thickening but no significant atherosclerotic plaque noted in the right common carotid artery. There is heterogeneous, irregular atherosclerotic plaque noted in the right internal carotid artery. The right internal carotid artery is very tortuous. There is heterogeneous, irregular atherosclerotic plaque noted in the right external carotid artery. Antegrade flow is noted in the right vertebral artery. Left Extracranial There is heterogeneous, irregular atherosclerotic plaque noted in the left common carotid artery. There is heterogeneous, irregular atherosclerotic plaque noted in the left internal carotid artery. The left internal carotid artery is very tortuous. There is intimal thickening but no significant atherosclerotic plaque noted in the left external carotid artery. Antegrade flow is noted in the left vertebral artery. Procedure Carotid Duplex 32177. This is a Carotid Duplex examination using B-mode, color flow and specral Doppler. Exam performed portable in patient room. 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 >50% stenosis right external carotid Irregular calcific plague proximal left internal carotid with 50-69% stenosis-- very tortuous and this may artificially increase the estimated degree of stenosis. <50% stenosis left external carotid Patent, antegrade vertebrals bilaterally Ordering Physician: Castillo Weiss Performed By: Aleena Gregory RDCS, RVT
--- NOTE | 2020-06-14 15:08 | ECHOD_ITS ---
Reason For Study: TIA/CVA Procedure This was a 2D Doppler, Color Flow transthoracic echocardiogram. Exam performed portable in patient room. Left Ventricle Normal left ventricle. Concentric left ventricular hypertrophy. The estimated ejection fraction is EF 55-60% %. Right Ventricle Normal right ventricle. Normal systolic function. Atria The left atrium is moderately enlarged. Mitral Valve The mitral valve is structurally normal. No prolapse or stenosis seen. Tricuspid Valve Normal tricuspid valve. Aortic Valve Normal aortic valve. Pulmonic Valve The pulmonic valve is not well visualized. Great Vessels Normal aortic root. Pericardium/Pleural No pericardial effusion. Medication Performed a rapid injection of agitated mix of 9 cc saline and 1cc air to assess for atrial septal defect. MMode/2D Measurements & Calculations LVIDd: 4.3 cm IVSd: 1.6 cm Ao root diam: 3.4 cm LVIDs: 3.2 cm LVPWd: 1.5 cm RVDd: 3.5 cm FS: 26.5 % LAV(MOD-bp): 55.0 ml LA A4 area: 19.4 cm2 LA dimension(2D): 4.9 cm LAV(MOD-bp) Indexed: 23.9 ml/m2 LAV(MOD-sp2): 55.9 ml LAV(MOD-sp4): 54.3 ml RA A4 area: 17.1 cm2 Time Measurements MV dec time: 0.25 sec Doppler Measurements & Calculations MV E max levi: 65.6 cm/sec Lat Peak E' Levi: 10.5 cm/sec Med Peak E' Levi: 6.8 cm/sec MV A max levi: 71.0 cm/sec E/E' lat: 6.2 E/E' med: 9.7 MV E/A: 0.92 Ao V2 max: 152.8 cm/sec LV V1 max: 127.2 cm/sec PA V2 max: 124.0 cm/sec Ao max P.3 mmHg LV V1 max P.5 mmHg ECHO/Echo Complete Interpretation Summary The estimated ejection fraction is EF 55-60% %. Normal LV systolic function Moderate concenteric LVH moderate LA enlargement Ordering Physician: Ngoc Yadav Referring Physician: ALBERTO PCP Performed By: Maricruz Estrada, PAUL, RVT
--- NOTE | 2020-06-14 15:32 | NURSING ---
Pt back in room. MRI completed.
[2020-06-14 16:23] LABS: Hemoglobin A1c 9.1 % (3.8-5.6)
--- NOTE | 2020-06-14 16:53 | PCM.PN.BLA ---
Progress Note Carotid duplex: no hemodynamically significant disease bilaterally. This study supersedes info from CTA carotids due to motion and poor quality exam RArcelia
[2020-06-14] MEDS: Metoprolol Tartrate 25 MG Tablet PO (22:15)
[2020-06-14] MEDS: Atorvastatin Calcium 40 MG Tablet PO (22:16)
[2020-06-15] VITALS (13 sets, daily range): BP systolic 118–138; BP diastolic 63–87; PULSE 65–74; RESP 16–18; TEMP 35.9–36.8; O2SAT 92–94; BMI 32.5
[2020-06-15] MEDS: 0.9% Normal Saline 1,000 ML 75 ML IV (04:06)
[2020-06-15 06:57] LABS: Absolute Lymphocyte Count 2.03 X10^3/uL (0.83-4.51); Absolute Neutrophil Count 5.8 X10^3/uL (2.0-7.7); Basophil# 0.04 X10^3/uL; Basophil% 0.5 % (0-1); Eosinophils% 1.1 % (0-5); Hematocrit 44.8 % (40-54); Hemoglobin 14.3 g/dL (13.0-16.5); Lymphocyte # 2.03 X10^3/ul (0.83-4.51); Lymphocyte % 23.3 % (19-41); Mean Corp Hgb Conc 31.9 g/dL (32-36); Mean Corpuscular Hgb 30.7 pg (27.0-32.0); Mean Corpuscular Volume 96.1 fL (80-94); Mean Platelet Vol. 10.1 fl (6.2-12.0); Monocyte# 0.74 X10^3/uL; Monocyte% 8.5 % (0-10); NRBC Flagged by Analyzer 0 % (0-5); Neutrophil # 5.78 X10^3/uL (2.7-7.7); Neutrophil % 66.3 % (47-70); Platelet Count 221 K/mm3 (150-450); RBC Distribution Width CV 12.9 % (11.6-14.6); RBC Distribution Width SD 46.1 fl (35.1-43.9); Red Blood Count 4.66 M/mm3 (4.6-6.2); White Blood Count 8.7 K/mm3 (4.4-11.0)
[2020-06-15 07:36] LABS: ALB/GLOB Ratio 1.2 RATIO (0.9-2.4); AST(SGOT) 16 U/L (15-37); Alanine Aminotransfer ALT/SGPT 34 U/L (16-61); Albumin, Serum 3.2 g/dL (3.2-5.0); Alkaline Phosphatase 75 U/L (45-117); Anion Gap 5 (5-15); BUN 10 mg/dL (7-18); BUN/Creat Ratio 13.1 RATIO (10-20); Calcium,Total 8.1 mg/dL (8.5-10.1); Chloride 108 mmol/L (98-107); Cholesterol 111 mg/dL (200); Creatinine, Serum 0.76 mg/dL (0.70-1.30); EST Glomerular Filtration Rate 111 mL/min (>60); Est Glom Filt Rate - Afr Amer 134 mL/min (>60); Estimated Creatinine Clearance 113.45 ml/min; Globulin 2.7 g/dL (2.2-4.2); Glucose 140 mg/dL (74-106); High Density Lipoprotein 31 mg/dL; Potassium 4.2 mmol/L (3.5-5.1); Protein, Total 5.9 g/dL (6.4-8.2); Sodium Level 138 mmol/L (136-145); Triglycerides 194 mg/dL; Very Low Density Lipoprotein 39 mg/dL (5-40)
[2020-06-15] MEDS: Aspirin 81 MG TAB.CHEW PO (08:33)
[2020-06-15] MEDS: Metoprolol Tartrate 25 MG Tablet PO (08:33)
[2020-06-15] MEDS: Cholecalciferol (VIT D3) 25 MCG TABLET (1,000 UNITS) 50 MCG PO (08:34)
--- NOTE | 2020-06-15 09:03 | TELEMED_ITS ---
[facility] Telemed has confirmed receipt of a request for visit. This document confirms receipt of the order initiating the consult. To find the results of the consultation, please view the patient's reports for the scanned Telemed Consult.
[2020-06-15] MEDS: Lisinopril 40 MG Tablet PO (09:43)
[2020-06-15] MEDS: Clopidogrel Bisulfate 75 MG Tablet PO (09:43)
--- NOTE | 2020-06-15 09:45 | CASEMGMT ---
DOMONIQUE LOPEZ [employer] CM to room to meet with patient for initial transition planning/care coordination assessment. DOMONIQUE LOPEZ introduced self and role at [facility]. Pt voices understanding and consents to assessment at this time. Pt sitting up in chair in room in no distress at this time. Pt is A/O at this time and answers all questions appropriately. Care providers, pharmacy, and demographics verified/updated at this time. PCP: No PCP. Provided w/list of local PCP's. Specialists: STEFAN Preferred Pharmacy:[facility] in [place] Insurance: [place] Prescription Benefit: Yes Living Will/HPOA: Thinks he has completed these, but he is not certain. Provided information on advanced directives and given Social Service rac card with number to call if chooses in the future to utilize [facility] social work for advanced directive completion. Educated patient that, if patient so chooses, can come back to [facility] and meet with a SW as an outpatient to complete health care advanced directives. Patient expresses understanding. LNOK: , [facility] Living Arrangements: Lives w/. Independent. Works full-time Transportation: Pt states drives self and states no transportation concerns at this time. also drives DME: Denies using any DME and denies needs. HHC/SNF: No history of either. Denies needs and no needs identified. Pt has refused PT/OT evals--he states he has returned to his baseline. Pt wishes to return home and states has no concerns with going home at time of discharge. CM to follow for any discharge planning/needs. Pt voices no concerns/needs at this time. Advised pt to ask for CM if any questions/concerns/needs arise. Voices understanding. PLAN: Home Yazan MILLER RN, CM
--- NOTE | 2020-06-15 11:45 | PCM.DC ---
Documented by User: Ankush AGUIRRE 06/15/20 17:02 Discharge Instructions Outpatient Procedure Reason For Visit: TIA/CVA Diet Discharge Diet: No restrictions Activity Discharge Activity: Return to Normal Activity Follow Up Care Please Follow Up With: Primary care provider When: Within the next 2 weeks. Test Results: Test results from this visit will be discussed in further detail at your follow-up appointment, if applicable. Discharge Plan Admission Admit Date/Time: 06/14/20 19:14 Primary Reason for Your Visit: Stroke Attending Provider: Ngoc Yadav Primary Care Provider: Care Physician,No Primary Consulting Providers: Castillo Weiss Discharge Orders/Prescriptions Prescriptions: New clopidogrel [Plavix] 75 mg tablet 75 mg PO DAILY Qty: 21 RF: 0 Continued aspirin [Adult Aspirin Regimen] 81 mg tablet,delayed release (DR/EC) 81 mg PO QDAY RF: 0 nitroglycerin [Nitrostat] 0.4 mg tablet, sublingual 0.4 mg SUBLINGUAL Q5-15M PRN (Reason: chest pain) Qty: 25 RF: 3 atorvastatin 40 mg tablet 40 mg PO DAILY RF: 0 lisinopril 40 mg tablet 40 mg PO QDAY RF: 0 metoprolol tartrate 25 mg tablet 25 mg PO BID RF: 0 cholecalciferol (vitamin D3) 50 mcg (2,000 unit) capsule 2,000 unit PO DAILY RF: 0 Referrals: Care Physician,No Primary [Primary Care Provider] - Disposition Discharge Orders: Discharge Patient (Routine); Ordered 06/15/20 Ordered By: Ankush AGUIRRE Documented by User: Dr. Ngoc Yadav MD 06/15/20 17:49 Discharge Instructions Outpatient Procedure Reason For Visit: TIA/CVA Discharge Plan Admission Admit Date/Time: 06/14/20 19:14 Primary Reason for Your Visit: Stroke Attending Provider: Ngoc Yadav Primary Care Provider: Jason Physician,No Primary Consulting Providers: Castillo Weiss Discharge Orders/Prescriptions Prescriptions: New clopidogrel [Plavix] 75 mg tablet 75 mg PO DAILY Qty: 21 RF: 0 Continued aspirin [Adult Aspirin Regimen] 81 mg tablet,delayed release (DR/EC) 81 mg PO QDAY RF: 0 nitroglycerin [Nitrostat] 0.4 mg tablet, sublingual 0.4 mg SUBLINGUAL Q5-15M PRN (Reason: chest pain) Qty: 25 RF: 3 atorvastatin 40 mg tablet 40 mg PO DAILY RF: 0 lisinopril 40 mg tablet 40 mg PO QDAY RF: 0 metoprolol tartrate 25 mg tablet 25 mg PO BID RF: 0 cholecalciferol (vitamin D3) 50 mcg (2,000 unit) capsule 2,000 unit PO DAILY RF: 0 Referrals: Care Physician,No Primary [Primary Care Provider] - Disposition Discharge Orders: Discharge Patient (Routine); Ordered 06/15/20 Ordered By: Ankush AGUIRRE
--- NOTE | 2020-06-15 14:15 | PN.HOSP_ITS ---
Documented by User: Ankush AGUIRRE 06/15/20 17:05 Subjective Subjective: Patient is a 60-year-old male comfortably in a chair, alert and oriented x3. Patient reports resolution of his symptoms at admission to include extremity numbness and tingling. Patient denies any vision changes, headache, weakness, chest pain, shortness of breath, palpitations, fever, chills, N/V/D. Objective Data Objective Data Vital Signs: Vital Signs Temp Pulse Resp BP Pulse Ox 98.1 F 66 16 132/79 H 94 06/15/20 12:26 06/15/20 12:26 06/15/20 12:26 06/15/20 12:26 06/15/20 12:26 Oxygen Delivery Method Room Air Weight: 240 lb 4.862 oz Body Mass Index (BMI) 32.5 Intake & Output: Intake and Output for Last 24 Hours 06/13/20 06/14/20 06/15/20 23:59 23:59 23:59 Intake Total 607.5 / 607.5 1522.5 / 1522.5 Balance 607.5 / 607.5 1522.5 / 1522.5 Lab / Micro Data Result Diagrams: 06/15/20 05:50 06/15/20 05:50 Labs: Laboratory Results - last 24 hr 06/14/20 06/15/20 06/15/20 09:05 05:50 05:50 WBC 8.7 RBC 4.66 Hgb 14.3 Hct 44.8 MCV 96.1 H MCH 30.7 MCHC 31.9 L RDW Std Deviation 46.1 H RDW Coeff of [place] 12.9 Plt Count 221 MPV 10.1 Immature Gran % (Auto) 0.300 Neut % (Auto) 66.3 Lymph % (Auto) 23.3 Dickens % (Auto) 8.5 Eos % (Auto) 1.1 Baso % (Auto) 0.5 Absolute Neuts (auto) 5.8 Absolute Lymphs (auto) 2.03 Nucleated RBC % 0 Sodium 138 Potassium 4.2 Chloride 108 H Carbon Dioxide 25.0 Anion Gap 5 BUN 10 Creatinine 0.76 Estim Creat Clear Calc 113.45 Est GFR (MDRD) Af Amer 134 Est GFR (MDRD) Non-Af 111 BUN/Creatinine Ratio 13.1 Glucose 140 H Hemoglobin A1c 9.1 H Calcium 8.1 L Total Bilirubin 0.40 AST 16 ALT 34 Alkaline Phosphatase 75 Total Protein 5.9 L Albumin 3.2 Globulin 2.7 Albumin/Globulin Ratio 1.2 Triglycerides 194 Cholesterol 111 LDL Cholesterol 41 VLDL Cholesterol 39 HDL Cholesterol 31 L Radiography Diagnostic Testing: Radiology Impression Brain MRI 06/14/20 11:09 IMPRESSION: 1. A tiny acute infarct is present in the superior aspect of the right parietal lobe in the yun radiata see images 23 and 24 series #4. N.B. : The above information has been verbally conveyed by Duncan Saldaña MD to DOMONIQUE Minaya RN, on 06/14/2020 19:13:17 (ET). Electronically Signed: Duncan Saldaña MD at 19:14 EDT , Service support , ADDENDUM: 06/14/201920 IMPRESSION: 1. A tiny acute infarct is present in the superior aspect of the right parietal lobe in the yun radiata see images 23 and 24 series #4. N.B. : The above information has been verbally conveyed by Duncan Saldaña MD to DOMONIQUE Minaya RN, on 06/14/2020 19:13:17 (ET). Electronically Signed: Duncan Saldaña MD at 19:14 EDT , Service support , Carotid Duplex 06/14/20 14:38 Interpretation Summary Irregular calcific plague at the proximal right internal carotid with <50% st enosis. >50% stenosis right external carotid Irregular calcific plague proximal left internal carotid with 50-69% stenosis--very tortuous and this may artificially increase the estimated degree of stenosis. <50% stenosis left external carotid Patent, antegrade vertebrals bilaterally Ordering Physician: Castillo Weiss Performed By: Aleena Gregory RDCS, RVT Echocardiogram 06/14/20 15:08 Interpretation Summary The estimated ejection fraction is EF 55-60% %. Normal LV systolic function Moderate concenteric LVH moderate LA enlargement Ordering Physician: Ngoc Yadav Referring Physician: ALBERTO PCP Performed By: Maricruz Estrada RDCS, RVT Rhythm Strip Rhythm Strip: Sinus Rhythm Rate: 90 Ectopy: None Physical Exam Narrative See subjective Const alert, oriented x3 and no apparent distress HEENT head/scalp atraumatic Head and Scalp: normocephalic Eyes EOMs intact bilaterally Neck no lymphadenopathy, supple and no JVD Resp normal respiratory effort and no retractions Cardio regular rate, regular rhythm, no murmurs and no rub GI normal to inspection, nondistended, normoactive bowel sounds, soft to palpation and non-tender Extremity full ROM Skin no rashes or lesions noted and no wounds Neuro CN's II-XII intact bilaterally Psych affect normal Assessment & Plan Assessment/Plan (1) Carotid stenosis, right: Status: Acute Code(s): I65.21 - Occlusion and stenosis of right carotid artery (2) Ataxia of left upper extremity: Status: Acute Code(s): R27.0 - Ataxia, unspecified (3) CVA (cerebral vascular accident): Status: Acute Code(s): I63.9 - Cerebral infarction, unspecified Plan: Patient is a 60-year-old male who presented to the ED on 06/14/2020 with a chief complaint of numbness of the left upper extremity that began on the morning of 06/14. MRI did reveal a small acute infarct in the superior aspect of the right parietal lobe. Carotid duplex ultrasound demonstrated irregular calcific plaque at the right ICA with less than 50% stenosis, greater than 50% stenosis in the right external carotid, irregular calcific plaque in the left ICA with 60% stenosis very torturous, less than 50% stenosis in the left external carotid, antegrade vertebrals patent bilaterally. Despite these findings, vascular surgery believes this demonstrates no hemodynamically significant disease. PT/OT/ST evaluation recommended outpatient therapy. SOC neurology consulted; agreed that patient have a small acute infarct in the superior aspect of the right parietal lobe, recommend initiate Plavix 75 mg p.o. daily x21 days, follow-up with vascular as outpatient. 1) Ataxia secondary to Acute infarct of the right parietal lobe. Brain MRI as above. According to patient numbness in left upper extremity has resolved, no focal neuro deficits observed on physical exam. Aspirin and statin regimen already in place. Echocardiogram demonstrated an estimated ejection fraction is EF 55-60% %, normal LV systolic function, moderate concentric LVH, moderate LA enlargement. Plan; as above. 2) Occlusion and stenosis of the R. and L. internal carotid arteries. Carotid duplex demonstrated no hemodynamically significant disease bilaterally, no surgery indicated per vascular surgery. Plan; follow-up outpatient. Patient seen by Ankush Velasquez PA-C, under the supervision of Dr. Yadav. Documented by User: Dr. Ngoc Yadav MD 06/15/20 17:50 Objective Data Lab / Micro Data Result Diagrams: 06/15/20 05:50 06/15/20 05:50
--- NOTE | 2020-06-15 16:44 | NURSING ---
pt, ,nurse had tele call with dr andrade questions answered reccomendations given
--- NOTE | 2020-06-15 17:56 | DS.PCM_ITS ---
Documented by User: Ankush AGUIRRE 06/15/20 18:00 Providers Date of Admission: 06/14/20 Primary Care Physician: Brittanie Primary Care Phys Consultations 06/14/20 13:24 Consult: Vascular Surgery Routine Consulting Provider: Castillo Weiss Reason for Consult: Carotid stenosis EMERGENT Consult: No MD Notified: Yes Date Notified:: 06/14/20 Time Notified: 13:24 Method of Notification: Verbal Reason For Visit: TIA/CVA Diagnosis Discharge Diagnosis (1) Carotid stenosis, right: Status: Acute Code(s): I65.21 - Occlusion and stenosis of right carotid artery (2) Ataxia of left upper extremity: Status: Acute Code(s): R27.0 - Ataxia, unspecified (3) CVA (cerebral vascular accident): Status: Acute Code(s): I63.9 - Cerebral infarction, unspecified Medications at Discharge Home Medications aspirin 81 mg tablet,delayed release 81 mg PO QDAY 09/03/17 nitroglycerin 0.4 mg sublingual tablet 0.4 mg SUBLINGUAL Q5-15M PRN #25 tab 10/24/18 atorvastatin 40 mg PO DAILY 06/14/20 cholecalciferol (vitamin D3) 2,000 unit PO DAILY 06/14/20 lisinopril 40 mg PO QDAY 06/14/20 metoprolol tartrate 25 mg PO BID 06/14/20 clopidogrel [Plavix] 75 mg PO DAILY #21 tab 06/15/20 glimepiride 2 mg PO DAILY #30 tab 06/15/20 metformin 500 mg PO BID #60 tab 06/15/20 Hospital Course Procedures 2-D Echocardiogram Summary of Care Provided Minutes Spent on Discharge: 35 Hospital Course: Patient is a 60-year-old male who presented to the ED on 06/14/2020 with a chief complaint of numbness of the left upper extremity that began on the morning of 06/14. MRI did reveal a small acute infarct in the superior aspect of the right parietal lobe. Carotid duplex ultrasound demonstrated irregular calcific plaque at the right ICA with less than 50% stenosis, greater than 50% stenosis in the right external carotid, irregular calcific plaque in the left ICA with 60% stenosis very torturous, less than 50% stenosis in the left external carotid, antegrade vertebrals patent bilaterally. Despite these findings, vascular surgery believes this demonstrates no h emodynamically significant disease. PT/OT/ST evaluation recommended outpatient therapy. SOC neurology consulted; agreed that patient have a small acute infarct in the superior aspect of the right parietal lobe, recommend initiate Plavix 75 mg p.o. daily x21 days, follow-up with vascular as outpatient. 1) Ataxia secondary to Acute infarct of the right parietal lobe. Brain MRI as above. According to patient numbness in left upper extremity has resolved, no focal neuro deficits observed on physical exam. Aspirin and statin regimen already in place. Echocardiogram demonstrated an estimated ejection fraction is EF 55-60% %, normal LV systolic function, moderate concentric LVH, moderate LA enlargement. Plan; as above. 2) Occlusion and stenosis of the R. and L. internal carotid arteries. Carotid duplex demonstrated no hemodynamically significant disease bilaterally, no surgery indicated per vascular surgery. Plan; follow-up outpatient. Patient seen by Ankush Velasquez PA-C, under the supervision of Dr. Yadav. Physical Exam Narrative Patient is a 60-year-old male comfortably in a chair, alert and oriented x3. P atient reports resolution of his symptoms at admission to include extremity numbness and tingling. Patient denies any vision changes, headache, weakness, chest pain, shortness of breath, palpitations, fever, chills, N/V/D. Const alert and oriented x3 General Appearance: cooperative HEENT normocephalic, head/scalp atraumatic and hearing grossly normal bilaterally Eyes EOMs intact bilaterally Neck no lymphadenopathy, supple and no JVD Resp normal respiratory effort, no use of accessory muscles and clear to auscultation bilaterally Cardio regular rate, regular rhythm, no murmurs and no JVD GI normal to inspection, nondistended, normoactive bowel sounds and non-tender Extremity full ROM Skin no rashes or lesions noted and no wounds Neuro CN's II-XII intact bilaterally Psych affect normal ABG / Lab / Microbiology Data Result Diagrams: 06/15/20 05:50 06/15/20 05:50 Laboratory: Laboratory Results - last 24 hr 06/15/20 06/15/20 05:50 05:50 WBC 8.7 RBC 4.66 Hgb 14.3 Hct 44.8 MCV 96.1 H MCH 30.7 MCHC 31.9 L RDW Std Deviation 46.1 H RDW Coeff of [place] 12.9 Plt Count 221 MPV 10.1 Immature Gran % (Auto) 0.300 Neut % (Auto) 66.3 Lymph % (Auto) 23.3 [place] % (Auto) 8.5 Eos % (Auto) 1.1 Baso % (Auto) 0.5 Absolute Neuts (auto) 5.8 Absolute Lymphs (auto) 2.03 Nucleated RBC % 0 Sodium 138 Potassium 4.2 Chloride 108 H Carbon Dioxide 25.0 Anion Gap 5 BUN 10 Creatinine 0.76 Estim Creat Clear Calc 113.45 Est GFR (MDRD) Af Amer 134 Est GFR (MDRD) Non-Af 111 BUN/Creatinine Ratio 13.1 Glucose 140 H Calcium 8.1 L Total Bilirubin 0.40 AST 16 ALT 34 Alkaline Phosphatase 75 Total Protein 5.9 L Albumin 3.2 Globulin 2.7 Albumin/Globulin Ratio 1.2 Triglycerides 194 Cholesterol 111 LDL Cholesterol 41 VLDL Cholesterol 39 HDL Cholesterol 31 L Radiography Diagnostic Testing: Radiology Impression Brain MRI 06/14/20 11:09 IMPRESSION: 1. A tiny acute infarct is present in the superior aspect of the right parietal lobe in the yun radiata see images 23 and 24 series #4. N.B. : The above information has been verbally conveyed by Duncan Saldaña MD to DOMONIQUE Minaya RN, on 06/14/2020 19:13:17 (ET). Electronically Signed: Duncan Saldaña MD at 19:14 EDT , Service support , ADDENDUM: 06/14/201920 IMPRESSION: 1. A tiny acute infarct is present in the superior aspect of the right parietal lobe in the yun radiata see images 23 and 24 series #4. N.B. : The above information has been verbally conveyed by Duncan Saldaña MD to DOMONIQUE Minaya RN, on 06/14/2020 19:13:17 (ET). Electronically Signed: Duncan Saldaña MD at 19:14 EDT , Service support , D/C Instructions Discharge Diet: No restrictions Discharge Activity: Return to Normal Activity Please Follow Up With: Primary care provider When: Within the next 2 weeks. Meaningful Use Info Meaningful Use Diagnoses (Choose all that apply): Ischemic CVA CVA Therapy Assessed for PT,OT and/or ST?: Yes Ischemic Stroke Antithrombotic order at d/c?: Yes Dx of Atrial fib/flutter?: No Statins at discharge?: Yes Primary Dx Acute Ischemic CVA?: Yes IV tPA ordered during stay?: No Reason IV t-PA not ordered: Medical Contraindication Discharge Plan Admission Admit Date/Time: 06/14/20 19:14 Primary Reason for Your Visit: Stroke Attending Provider: Ngoc Yadav Primary Care Provider: Care Physician,No Primary Consulting Providers: Castillo Weiss Discharge Orders/Prescriptions Prescriptions: New clopidogrel [Plavix] 75 mg tablet 75 mg PO DAILY Qty: 21 RF: 0 glimepiride 2 mg tablet 2 mg PO DAILY Qty: 30 RF: 0 metformin 500 mg tablet 500 mg PO BID Qty: 60 RF: 0 Continued aspirin [Adult Aspirin Regimen] 81 mg tablet,delayed release (DR/EC) 81 mg PO QDAY RF: 0 nitroglycerin [Nitrostat] 0.4 mg tablet, sublingual 0.4 mg SUBLINGUAL Q5-15M PRN (Reason: chest pain) Qty: 25 RF: 3 atorvastatin 40 mg tablet 40 mg PO DAILY RF: 0 lisinopril 40 mg tablet 40 mg PO QDAY RF: 0 metoprolol tartrate 25 mg tablet 25 mg PO BID RF: 0 cholecalciferol (vitamin D3) 50 mcg (2,000 unit) capsule 2,000 unit PO DAILY RF: 0 Other Ambulatory Orders: Glucometer (Routine) Location: None Selected Ordered By: Dr. Ngoc Yadav Referrals: Care Physician,No Primary [Primary Care Provider] - Disposition Patient Disposition: Home, self care Documented by User: Dr. Ngoc Yadav MD 06/15/20 18:50 Providers Date of Admission: 06/14/20 Reason For Visit: TIA/CVA Medications at Discharge Home Medications aspirin 81 mg tablet,delayed release 81 mg PO QDAY 09/03/17 nitroglycerin 0.4 mg sublingual tablet 0.4 mg SUBLINGUAL Q5-15M PRN #25 tab 10/24/18 atorvastatin 40 mg PO DAILY 06/14/20 cholecalciferol (vitamin D3) 2,000 unit PO DAILY 06/14/20 lisinopril 40 mg PO QDAY 06/14/20 metoprolol tartrate 25 mg PO BID 06/14/20 clopidogrel [Plavix] 75 mg PO DAILY #21 tab 06/15/20 glimepiride 2 mg PO DAILY #30 tab 06/15/20 metformin 500 mg PO BID #60 tab 06/15/20 ABG / Lab / Microbiology Data Result Diagrams: 06/15/20 05:50 06/15/20 05:50 Discharge Plan Admission Admit Date/Time: 06/14/20 19:14 Primary Reason for Your Visit: Stroke Attending Provider: Ngoc Yadav Primary Care Provider: Care PhysicianBrittanie Primary Consulting Providers: Castillo Weiss Discharge Orders/Prescriptions Prescriptions: New clopidogrel [Plavix] 75 mg tablet 75 mg PO DAILY Qty: 21 RF: 0 glimepiride 2 mg tablet 2 mg PO DAILY Qty: 30 RF: 0 metformin 500 mg tablet 500 mg PO BID Qty: 60 RF: 0 Continued aspirin [Adult Aspirin Regimen] 81 mg tablet,delayed release (DR/EC) 81 mg PO QDAY RF: 0 nitroglycerin [Nitrostat] 0.4 mg tablet, sublingual 0.4 mg SUBLINGUAL Q5-15M PRN (Reason: chest pain) Qty: 25 RF: 3 atorvastatin 40 mg tablet 40 mg PO DAILY RF: 0 lisinopril 40 mg tablet 40 mg PO QDAY RF: 0 metoprolol tartrate 25 mg tablet 25 mg PO BID RF: 0 cholecalciferol (vitamin D3) 50 mcg (2,000 unit) capsule 2,000 unit PO DAILY RF: 0 Other Ambulatory Orders: Glucometer (Routine) Location: None Selected Ordered By: Dr. Ngoc Yadav Referrals: Care Physician,No Primary [Primary Care Provider] - Disposition Patient Disposition: Home, self care Addendum Addendum: This patient was seen in conjunction with CARLA Melgar. I have independently interviewed and examined the patient and reviewed pertinent historical, laboratory, and other data. Please refer to CARLA Melgar's note for his patient's presentation, findings, and recommendations. I have reviewed and his note and concur with his documentation 60-year-old male with multiple cardiovascular comorbidities including CAD status post stent, chronic smoker who comes in complaining of left upper extremity numbness. CT of the head was suggestive of lacunar infarcts in the posterior limb of the internal capsule and also right temporal region. CTA of the head and neck showed right internal carotid artery origin stenosis more than 70%. Patient was admitted to telemetry floor started on aspirin, Plavix and statin. He underwent MRI that showed tiny acute infarct in the superior aspect of the right parietal lobe. He was seen by tele-neurology recommended to be on dual antiplatelet. 2D echo showed EF of 55-60, normal LV function, moderate LVH, mo derate LAE enlargement. HgbA1c was 9.1. His triglycerides was 194, TChol 111, LDL 41, HDL 31. He was given glimepiride 2 mg daily, Metformin 500 mg twice daily. He was also given glucometer with strips and lancets. He will check his blood sugars 1-3 times a day. He will follow-up with his primary care doctor to log of his blood sugars. This was communicated to him. On the day of discharge, patient was seen and examined. His numbness had resolved Physical Exam: Gen: Comfortable, not pale, not jaundiced CVS:HS I +II, regular, no murmurs RESP: CTA GI: BS present and normal, soft, nontender, no palpable organs EXT:No edema ELECTROPLATING TECHNICIAN: Grossly intact Visit Charges Inpatient E&M: 14044 Disch Hosp
--- NOTE | 2020-06-15 18:22 | NURSING ---
discharged with instructions per wheelchair in care of
== END 2020-06-15 18:18 | disposition home or self-care (01) | DRG 66 ==
LOC: ED 10:27 → PCU 06-15 09:51
PROVIDERS: Admitting Provider Internal Medicine; Emergency Provider Emergency Medicine; Visit Provider Internal Medicine
DX: I63.9 Cerebral infarction, unspecified (principal); R27.0 Ataxia, unspecified; I65.23 Occlusion and stenosis of bilateral carotid arteries; R29.701 NIHSS score 1; E78.5 Hyperlipidemia, unspecified; I10 Essential (primary) hypertension; I25.10 Atherosclerotic heart disease of native coronary artery without angina pectoris; I25.2 Old myocardial infarction; F17.210 Nicotine dependence, cigarettes, uncomplicated; Z95.5 Presence of coronary angioplasty implant and graft; Z79.82 Long term (current) use of aspirin; Z79.899 Other long term (current) drug therapy
CPT/HCPCS: 36415; 70450; 70496; 70498; 70551; 71045; 80048; 80053; 80061; 82962; 83036; 84484; 85025; 85610; 85730; 92523; 92610; 93005; 93306; 93880; 94762; 97802; 99285; J7030; Q9957; Q9967; A4216

== ENCOUNTER → 2020-11-12 15:27 | Outpatient (CLI) | payer BC, SELFPAY ==
[2020-11-12 16:24] LABS: AST(SGOT) 15 U/L (15-37); Alanine Aminotransfer ALT/SGPT 30 U/L (16-61); Albumin, Serum 3.7 g/dL (3.2-5.0); Alkaline Phosphatase 77 U/L (45-117); Bilirubin, Direct 0.12 mg/dL (0.00-0.30); Cholesterol 100 mg/dL (200); Globulin 3.4 g/dL (2.2-4.2); High Density Lipoprotein 41 mg/dL; Protein, Total 7.1 g/dL (6.4-8.2); Triglycerides 94 mg/dL; Very Low Density Lipoprotein 19 mg/dL (5-40)
== END ==
PROVIDERS: PCP Family Medicine; Referring Provider Physician Assistant Medical; Visit Provider Physician Assistant Medical
DX: E78.00 Pure hypercholesterolemia, unspecified (principal); Z86.73 Personal history of transient ischemic attack (TIA), and cerebral infarction without residual deficits
CPT/HCPCS: 36415; 80061; 80076

== ENCOUNTER 2021-05-26 16:12 | Outpatient (CLI) | payer OTHER, SELFPAY ==
[2021-05-26 17:19] LABS: AST(SGOT) 14 U/L (15-37); Alanine Aminotransfer ALT/SGPT 25 U/L (16-61); Alkaline Phosphatase 76 U/L (45-117); Bilirubin, Direct 0.13 mg/dL (0.00-0.30); Cholesterol 110 mg/dL (200); Globulin 3.2 g/dL (2.2-4.2); High Density Lipoprotein 42 mg/dL; Protein, Total 7.2 g/dL (6.4-8.2); Triglycerides 136 mg/dL; Very Low Density Lipoprotein 27 mg/dL (5-40)
== END 2021-05-26 23:59 | disposition home or self-care (01) ==
LOC: LAB 16:13
PROVIDERS: PCP Family Medicine; Referring Provider Physician Assistant Medical; Visit Provider Physician Assistant Medical
DX: E78.00 Pure hypercholesterolemia, unspecified (principal)
CPT/HCPCS: 36415; 80061; 80076

== ENCOUNTER → 2021-06-06 | Outpatient (CLI) | payer OTHER, SELFPAY ==
--- NOTE | 2021-06-06 13:35 | CDU_ITS ---
Reason For Study: Carotid Stenosis Rt. Velocities/BP Lt. Velocities/BP Prox CCA 110/17 cm/sec. Prox CCA 138/40 cm/sec. Mid CCA 102/32 cm/sec. Mid CCA 106/31 cm/sec. Dist CCA 107/32 cm/sec. Dist CCA 103/33 cm/sec. Prox ICA 86/25 cm/sec. Prox ICA 129/32 cm/sec. Mid ICA 99/32 cm/sec. Mid ICA 117/47 cm/sec. Dist ICA 78/37 cm/sec. Dist ICA 106/40 cm/sec. Rt. ICA/CCA = 1.0. Lt. ICA/CCA = 1.2. Prox ECA 172/38 cm/sec. Prox ECA 147/27 cm/sec. Rt. Vert. 57/18 cm/sec. Lt. Vert. 37/13 cm/sec. Right Extracranial There is intimal thickening but no significant atherosclerotic plaque noted in the right common carotid artery. There is heterogeneous, irregular atherosclerotic plaque noted in the right internal carotid artery. There is intimal thickening but no significant atherosclerotic plaque noted in the right external carotid artery. Antegrade flow is noted in the right vertebral artery. Left Extracranial There is heterogeneous, irregular atherosclerotic plaque noted in the left common carotid artery. There is heterogeneous, irregular atherosclerotic plaque noted in the left internal carotid artery. The left internal carotid artery is very tortuous. There is intimal thickening but no significant atherosclerotic plaque noted in the left external carotid artery. Antegrade flow is noted in the left vertebral artery. Procedure Carotid Duplex 62000. This is a Carotid Duplex examination using B-mode, color flow and specral Doppler. Exam performed in department. 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 <50% stenosis right external carotid Irregular calcific plague proximal left internal carotid with 50-69% stenosis-- very tortuous and this may artificially increase the estimated degree of stenosis. <50% stenosis left external carotid Patent, antegrade vertebrals bilaterally No clinically significant change from 06/14/20 Ordering Physician: Yenni Seals Referring Physician: Santiago Catherine Performed By: Aleena Gregory RDCS, RVT
== END | disposition home or self-care (01) ==
LOC: CVS 13:34
PROVIDERS: PCP Family Medicine; Referring Provider Physician Assistant Medical; Visit Provider Physician Assistant Medical
DX: I65.21 Occlusion and stenosis of right carotid artery (principal)
CPT/HCPCS: 93880

== ENCOUNTER → 2021-11-24 | Outpatient (CLI) | payer OTHER, SELFPAY ==
[2021-11-24 08:52] LABS: AST(SGOT) 17 U/L (15-37); Alanine Aminotransfer ALT/SGPT 25 U/L (16-61); Albumin, Serum 3.5 g/dL (3.2-5.0); Alkaline Phosphatase 85 U/L (45-117); Bilirubin, Direct 0.08 mg/dL (0.00-0.30); Cholesterol 115 mg/dL (200); Globulin 3.2 g/dL (2.2-4.2); High Density Lipoprotein 43 mg/dL; Protein, Total 6.7 g/dL (6.4-8.2); Triglycerides 123 mg/dL; Very Low Density Lipoprotein 25 mg/dL (5-40)
== END | disposition home or self-care (01) ==
PROVIDERS: Internal Medicine Cardiovascular Disease; PCP Family Medicine; Referring Provider Physician Assistant Medical; Visit Provider Physician Assistant Medical
DX: E78.00 Pure hypercholesterolemia, unspecified (principal)
CPT/HCPCS: 36415; 80061; 80076

== ENCOUNTER → 2021-12-12 | Outpatient (CLI) | payer OTHER, SELFPAY ==
[2021-12-12 12:11] LABS: Absolute Lymphocyte Count 1.71 X10^3/uL (0.83-4.51); Absolute Neutrophil Count 6.3 X10^3/uL (2.0-7.7); Basophil# 0.04 X10^3/uL; Basophil% 0.4 % (0-1); Eosinophil# 0.13 X10^3/uL; Eosinophils% 1.4 % (0-5); Hematocrit 45.8 % (40-54); Hemoglobin 15.7 g/dL (13.0-16.5); Lymphocyte # 1.71 X10^3/ul (0.83-4.51); Lymphocyte % 18.9 % (19-41); Mean Corp Hgb Conc 34.3 g/dL (32-36); Mean Corpuscular Hgb 32.8 pg (27.0-32.0); Mean Corpuscular Volume 95.6 fL (80-94); Mean Platelet Vol. 9.8 fl (6.2-12.0); Monocyte# 0.82 X10^3/uL; Monocyte% 9.1 % (0-10); NRBC Flagged by Analyzer 0 % (0-5); Neutrophil # 6.33 X10^3/uL (2.7-7.7); Platelet Count 267 K/mm3 (150-450); RBC Distribution Width CV 13.2 % (11.6-14.6); RBC Distribution Width SD 46.7 fl (35.1-43.9); Red Blood Count 4.79 M/mm3 (4.6-6.2); White Blood Count 9.1 K/mm3 (4.4-11.0)
[2021-12-12 12:25] LABS: Anion Gap 6 (5-15); BUN 13 mg/dL (7-18); BUN/Creat Ratio 16.3 RATIO (10-20); Calcium,Total 8.9 mg/dL (8.5-10.1); Chloride 106 mmol/L (98-107); EST Glomerular Filtration Rate 105 mL/min (>60); Est Glom Filt Rate - Afr Amer 127 mL/min (>60); Glucose 94 mg/dL (74-106); Potassium 4.2 mmol/L (3.5-5.1); Sodium Level 139 mmol/L (136-145); Thyroid Stim Hormone (TSH) 2.29 uIU/mL (0.358-3.74)
== END | disposition home or self-care (01) ==
LOC: BFHLAB 08:31
PROVIDERS: PCP Family Medicine; Visit Provider Family Medicine
DX: E11.9 Type 2 diabetes mellitus without complications (principal); I10 Essential (primary) hypertension
CPT/HCPCS: 36415; 80048; 84443; 85025

== ENCOUNTER → 2022-05-21 | Outpatient (CLI) | payer BC, SELFPAY ==
[2022-05-21 17:21] LABS: AST(SGOT) 18 U/L (15-37); Alanine Aminotransfer ALT/SGPT 32 U/L (16-61); Albumin, Serum 3.8 g/dL (3.2-5.0); Alkaline Phosphatase 79 U/L (45-117); Bilirubin, Direct 0.11 mg/dL (0.00-0.30); Cholesterol 119 mg/dL (200); Globulin 3.1 g/dL (2.2-4.2); High Density Lipoprotein 39 mg/dL; Protein, Total 6.9 g/dL (6.4-8.2); Triglycerides 184 mg/dL; Very Low Density Lipoprotein 37 mg/dL (5-40)
== END | disposition home or self-care (01) ==
LOC: LAB 16:33
PROVIDERS: PCP Family Medicine; Referring Provider Physician Assistant Medical; Visit Provider Physician Assistant Medical
DX: E78.00 Pure hypercholesterolemia, unspecified (principal)
CPT/HCPCS: 36415; 80061; 80076

== ENCOUNTER → 2022-09-11 | Outpatient (CLI) | payer BC, SELFPAY ==
[2022-09-11 08:39] LABS: PSA,Total - Annual Screen 1.68 ng/mL (0.00-4.00)
== END | disposition home or self-care (01) ==
LOC: LAB 07:14
PROVIDERS: PCP Nurse Practitioner Family; Referring Provider Nurse Practitioner Family; Visit Provider Nurse Practitioner Family
DX: Z12.5 Encounter for screening for malignant neoplasm of prostate (principal)
CPT/HCPCS: 36415; 84153; G0103

== ENCOUNTER 2022-10-30 06:23 | Day surgery (SDC) | payer BC, SELFPAY ==
[2022-10-30] VITALS (8 sets, daily range): BP systolic 71–125; BP diastolic 48–86; PULSE 64–73; RESP 16–20; TEMP 36.3–36.5; O2SAT 96–98; BMI 28.2
--- NOTE | 2022-10-30 06:46 | PCM.HP.BLA ---
History and Physical Date of Admission: 10/30/22 Intake Vital Signs 05/21/2314:28 10/16/2312:39 Height 6 ft 6 ft Weight: 212 lb BMI 28.7 BP 110/66 Blood Pressure Location Rt brachial Position Sitting Respiration 17 Pulse 73 Pulse Source Monitor Temp 97.3 F L Temp Source Temporal Pulse Oximetry (%) 92 Oxygen Delivery Method room air Intake Visit Reasons: POSITIVE COLOGUARD Chief Complaint: positive cologuard Is patient in pain?: No Allergies No Known Allergies Allergy (Verified 10/16/22 13:40) Medications aspirin 81 mg tablet,delayed release (Adult Aspirin Regimen) 81 mg PO QDAY heart health 09/03/17 [History Confirmed 10/16/22] nitroglycerin 0.4 mg sublingual tablet (Nitrostat) 0.4 mg sublingual Q5-15M PRN chest pain #25 tabs 10/24/18 [Rx Confirmed 10/16/22] cholecalciferol (vitamin D3) 50 mcg (2,000 unit) capsule 2,000 unit PO DAILY supplement 06/14/20 [History Confirmed 10/16/22] clopidogrel 75 mg tablet (Plavix) 75 mg PO DAILY #21 tabs 06/15/20 [Rx Confirmed 10/16/22] metformin 500 mg tablet 500 mg PO BID #60 tabs 06/15/20 [Rx Confirmed 10/16/22] atorvastatin 40 mg tablet 40 mg PO DAILY cholesterol #90 tabs 11/19/21 [Rx Confirmed 10/16/22] lisinopril 10 mg tablet 10 mg PO QDAY blood pressure #90 tabs 05/21/22 [Rx Confirmed 10/16/22] metoprolol tartrate 25 mg tablet 25 mg PO BID heart rate/BP #180 tabs 09/18/22 [Rx Confirmed 10/16/22] PFSH Medical History Atherosclerotic heart disease of [place] coronary artery without angina pectoris Chest pain Essential hypertension 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 Patient has never had a colonoscopy in the past. He denies any abdominal pain or family history of colon cancer. He occasionally sees blood in his stool every few years but it is a small amount. He is on aspirin and Plavix. ROS General General: No weight change, appetite, fatigue, colon cancer, breast cancer or weakness HEENT HEENT: No difficulty swallowing, eye injury, eye surgery, swollen glands or hoarseness Endo Endocrine: Yes diabetes mellitus; No thyroid disease, thyroid cancer, Hair loss, heat intolerance or cold intolerance Skin Skin: No rash or changing moles Musc Musculoskeletal: Yes back problems; No arthritis, rheumatoid arthritis, gout or joint pain Cardio Cardiovascular: Yes heart disease, high blood pressure, heart attack and heart stent; No murmur, pacemaker, atrial fibrillation, palpitations, shortness of breat with exertion or chest pain Psych Psychiatric: No depression, anxiety or hearing voices Resp Respiratory: No shortness of breath, No sleep apnea, No cough, No COPD, No asthma, No emphysema and No wheezing Gastro Gastrointestinal: No abdominal pain, No nausea or vomiting, No diarrhea, No constipation, Yes blood in stool, No acid reflux, No hemorrhoids, No ulcers, No gallbladder problem and No black,tarry stools Steven Hematologic: Yes blood thinners, No blood disorders, No bleeding, No anemia and No blood clots Neuro Neurologic: No system reviewed and no additional complaints, except as documented, No as per HPI, No abnormal gait, No abnormal hearing, No abnormal movements, No abnormal speech, No behavioral changes, No burning sensations, No confusion, No convulsions, No disequilibrium, No dizziness, No localized weakness, No frequent falls, No headache(s), No lack of coordination, No loss of vision, No memory loss, No numbness, No other visual disturbances, No radicular pain, No restless legs, No sensory deficit, No syncope, No tingling, No tremor(s), No weakness and Yes other (stroke) Exam Const General: cooperative Orientation: alert and oriented x3 HENMT Head: normal to inspection Neck Neck: normal visual inspection and full ROM Chest Chest palpation & inspection: normal inspection of the chest Resp Effort & Inspection: normal respiratory effort Auscultation: clear to auscultation bilaterally Cardio Rate: regular rate Rhythm: regular rhythm GI Inspection: non-distended Palpation: soft and nontender Skin General: no rashes or lesions noted Neuro General: patient alert and patient oriented x3 Extrem General: full ROM Psych Appearance: grossly normal Mental Status: mental status grossly normal Assessment and Plan Assessment and Plan (1) Positive colorectal cancer screening using Cologuard test: Status: Acute Plan: Patient had positive Cologuard and requires colonoscopy. He will hold his Plavix for 5 days. He may continue his aspirin. I explained endoscopy in detail to the patient. I explained the risks including but not limited to stroke or heart attack with anesthesia, perforation of the GI tract, bleeding, infection. I explained that any of these could necessitate further emergency surgery. The patient understands and all questions were answered sufficiently. The patient wishes to proceed with procedure. Matthew Spence MD Pager: [facility] [address] [place] [address], [address] [place] [address] Office: I have examined the patient and the H&P has been reviewed. There are no clinical changes since date of exam.
[2022-10-30] MEDS: Lactated Ringers 1,000 ML 15 ML IV (06:59)
--- NOTE | 2022-10-30 07:30 | COLBX_PTH ---
PATIENT: TK MITCHELL LOC: EN U#:[id number] AGE/SX: 62/M ROOM: RE10/30/[address]: Dr. Matthew Spence MD : 1960 BED: DIS: 10/30/2022 SPEC #: [id number] RECD: 10/30/22 10:20 STATUS: JUAN REMY #: [id number] ADARSH: 10/30/22 07:[address]: Matthew Spence DEPT: SURGICAL PATHOLOGY RECD BY: Yovana Dobbs ENTERED: 10/30/22 11:34 SP TYPE: COLON BX OTHR DR: Aleena Narayan, WRAPPER SELECTOR-C Tissues: A - Cecum, NOS B - Sigmoid colon biopsy Procedures: Surgery Specimen Level IV HEADER OPERATION: Colonoscopy, biopsy PRE-OP DIAGNOSIS: Positive Cologuard test TISSUE SUBMITTED: A - Polyp cecum, B - Polyp sigmoid colon MICROSCOPIC DIAGNOSIS A. Cecal polyp, biopsy: Fragments of hyperplastic polyp. B. Sigmoid colon polyp, biopsy: Hyperplastic polyp. AM:yessenia 11/02/2022 MICROSCOPIC DESCRIPTION Slides are reviewed. GROSS DESCRIPTION A - Received in fixative is one container labeled with the patient's name and designated polyp cecum. The specimen consists of multiple irregular fragments of light brito soft tissue that in aggregate measure 2.0 x 0.5 x 0.3 cm. The specimen is totally submitted in one cassette. B - Received in fixative is one container labeled with the patient's name and designated polypoid sigmoid colon. The specimen consists of multiple irregular fragments of light brito soft tissue that in aggregate measure 1.2 x 0.5 x 0.3 cm. The specimen is totally submitted in one cassette. / SJ:yessenia 10/30/2022 TC:5 CPT: 57040 x2
--- NOTE | 2022-10-30 07:58 | OP.COLON_ITS ---
Patient Name: Cornelio Brown Procedure Date: 10/30/2022 6:28 AM Date of : 1960 Age: 62 Procedure: Colonoscopy Indications: Positive Cologuard test Providers: Matthew Spence MD Referring MD: Maria Isabel Brewster Medicines: Monitored Anesthesia Care Patient Profile: This is a 62 year old male. Refer to note in patient chart for documentation of history and physical. Last Colonoscopy: several years ago. Complications: No immediate complications. Procedure: Pre-Anesthesia Assessment: - Prior to the procedure, a History and Physical was performed, and patient medications and allergies were reviewed. The patient's tolerance of previous anesthesia was also reviewed. The risks and benefits of the procedure and the sedation options and risks were discussed with the patient. All questions were answered, and informed consent was obtained. Prior Anticoagulants: The patient has taken Plavix (clopidogrel), last dose was 5 days prior to procedure. After reviewing the risks and benefits, the patient was deemed in satisfactory condition to undergo the procedure. After I obtained informed consent, the scope was passed under direct vision. Throughout the procedure, the patient's blood pressure, pulse, and oxygen saturations were monitored continuously. The Colonoscope was introduced through the anus and advanced to the cecum, identified by appendiceal orifice and ileocecal valve. The colonoscopy was performed without difficulty. The patient tolerated the procedure well. The quality of the bowel preparation was good. The ileocecal valve, appendiceal orifice, and rectum were photographed. Scope In: 7:22:59 AM Scope Withdrawal Time 0 hours 14 minutes 22 seconds Scope Out: 7:41:42 AM Total Procedure Duration Time 0 hours 18 minutes 43 seconds Findings: A medium polyp was found in the cecum. The polyp was sessile. The polyp was removed with a piecemeal technique using a hot snare. Resection and retrieval were complete. A small polyp was found in the sigmoid colon. The polyp was semi-pedunculated. The polyp was removed with a hot snare. Resection and retrieval were complete. The exam was otherwise without abnormality on direct and retroflexion views. Impression: - One medium polyp in the cecum, removed piecemeal using a hot snare. Resected and retrieved. - One small polyp in the sigmoid colon, removed with a hot snare. Resected and retrieved. - The examination was otherwise normal on direct and retroflexion views. Recommendation: - Discharge patient to home. - Resume previous diet. - Continue present medications. - Resume Plavix (clopidogrel) at prior dose tomorrow. - Await pathology results. - Repeat colonoscopy in 1 year for surveillance after piecemeal polypectomy. Procedure Code(s): --- Professional --- 52413, Colonoscopy, flexible; with removal of tumor(s), polyp(s), or other lesion(s) by snare technique Diagnosis Code(s): --- Professional --- D12.0, Benign neoplasm of cecum D12.5, Benign neoplasm of sigmoid colon R19.5, Other fecal abnormalities CPT copyright 2021 [employer]. All rights reserved. The codes documented in this report are preliminary and upon plugger worker review may be revised to meet current compliance requirements. Matthew Spence MD 10/30/2022 7:58:06 AM This report has been signed electronically. Number of Addenda: 0 Note Initiated On: 10/30/2022 6:28 AM
--- NOTE | 2022-10-30 07:59 | OP.CCLET_ITS ---
10/30/2022 Maria Isabel Brewster Re : Colonoscopy procedure for Cornelio Brown Dear Sylvain This procedure was performed on Sunday, October 30, 2022. My impressions and recommendations are as follows: Impressions : - One medium polyp in the cecum, removed piecemeal using a hot snare. Resected and retrieved. - One small polyp in the sigmoid colon, removed with a hot snare. Resected and retrieved. - The examination was otherwise normal on direct and retroflexion views. Recommendations : - Discharge patient to home. - Resume previous diet. - Continue present medications. - Resume Plavix (clopidogrel) at prior dose tomorrow. - Await pathology results. - Repeat colonoscopy in 1 year for surveillance after piecemeal polypectomy. My findings are described in the full procedure note, which is enclosed. If I can be of further assistance, please feel free to contact me at Doctor phone number(s): , Work: . Sincerely, Matthew Spence MD 10/30/2022 7:58:06 AM This report has been signed electronically.
[2022-10-30 08:04] LABS: Bedside Glucose 105 mg/dL (74-106)
== END 2022-10-30 08:28 | disposition home or self-care (01) ==
LOC: EN 06:29 → AC 06:30
PROVIDERS: PCP Nurse Practitioner Family; Referring Provider Nurse Practitioner Family; Visit Provider Surgery
PROC: 0DJD8ZZ Inspection of Lower Intestinal Tract, Via Natural or Artificial Opening Endoscopic (ICD-10-PCS; CPT 45378; principal; 2022-10-30 07:25)
DX: R19.5 Other fecal abnormalities (principal); I10 Essential (primary) hypertension; F17.200 Nicotine dependence, unspecified, uncomplicated; I25.10 Atherosclerotic heart disease of native coronary artery without angina pectoris; E78.5 Hyperlipidemia, unspecified; D12.5 Benign neoplasm of sigmoid colon; D12.0 Benign neoplasm of cecum
CPT/HCPCS: 45385; 82962; 88305; J7120; J2405

== ENCOUNTER → 2023-03-26 | Outpatient (CLI) | payer OTHER, SELFPAY ==
--- OUTSIDE RECORDS SUMMARY | 2023-02-23 17:54 | XMS RPT_ITS | CCD ---
Author Name Unknown Address [address] [place] [address] Organization [facility] Care Team Providers Care Manager Audit Name Role Phone MD Roman, Hiram Wheeler Unavailable DOMONIQUE Gordon, Tameka King Unavailable Unavailabl ruben Quiñonez RN, Natalya Saha Unavailable Unavailable SELF, SELF Referring Unavailable Medications Completed/Discontinued Medications Medication Drug Class(es) Dates Sig (Normalized) Sig (Original) 200 actuat albuterol 0.09 mg/actuat metered dose inhaler (3 sources) beta2-Adrenergic Agonist Start: 08-16-2016 PROAIR HFA 108 (90 Base) MCG/ACT AERS 2 puffs Q 4-6 hours prn ALBUTEROL SULFATE [id number] Yousuf Branham PA-C aspirin 325 mg oral tablet (6 sources) Nonsteroidal Anti-inflammatory Drug Start: 07-21-2010 take 1 tablet by mouth once daily ASPIRIN 325 MG TABS One tablet by mouth daily ASPIRIN [id number] Adrienne Albarado Problems Active Problems Problem Classification Problem Date Documented Da te Episodic/Chronic Coronary atherosclerosis and other heart disease (15 sources) Old myocardial infarction; Translations: [Coronary arteriosclerosis] Onset: 07-21-2010 Resolved: 12-24-2014 12-24-2014 Chronic Disorders of lipid metabolism (3 sources) Hyperlipidemia; Translations: [Hyperlipidemia, unspecified] Onset: 07-21-2010 07-21-2010 Chronic Essential hypertension (3 sources) Hypertensive disorder; Translations: [Essential (primary) hypertension] Onset: 07-06-2016 07-06-2016 Chronic Unclassified (3 sources) Body mass index (BMI) 32.0-32.9, adult; Translations: [Body mass index (BMI) 32.0-32.9, adult] Onset: 12-08-2012 12-08-2012 Chronic Unclassified (9 sources) Long-term drug therapy; Translations: [Long-term (current) use of other medications] Onset: 12-19-2013 Resolved: 12-24-2014 12-19-2013 Unclassified (6 sources) Placement of stent in coronary artery ; Translations: [Presence of coronary angioplasty implant and graft] Onset: 07-21-2010 12-30-2015 Past or Other Problems Problem Classification Problem Date Documented Da te Episodic/Chronic Acute bronchitis (3 sources) Acute bronchitis, unspecified; Translations: [Acute bronchitis, unspecified] Onset: 08-16-2016 08-16-2016 Episodic Coronary atherosclerosis and other heart disease (9 sources) History of myocardial infarction; Translations: [Coronary angioplasty status] Onset: 07-21-2010 07-21-2010 Episodic Fever of unknown origin (3 sources) Fever; Translations: [Fever, unspecified] Onset: 08-16-2016 08-16-2016 Episodic Results Test Name Value Interpretation Reference Range Facil ity Vital Signs Date Time Vital Sign Value Performing Clinician Faci lity 01-11-2017 14:25-0500 BMI (Body Mass Index) 32.41 kg/m2 DOMONIQUE [facility] Work Phone: 01-11-2017 14:25-0500 BP Diastolic 72 mm[Hg] DOMONIQUE [facility] Work Phone: 01-11-2017 14:25-0500 BP Systolic 132 mm[Hg] DOMONIQUE [facility] Work Phone: 01-11-2017 14:25-0500 Height 182.88 cm DOMONIQUE [facility] Work Phone: 01-11-2017 14:25-0500 Pulse (Heart Rate) 78 /min [facility]IQUE [facility] Work Phone: 01-11-2017 14:25-0500 Respiratory Rate 16 /min [facility]ONIQUE [facility] Work Phone: 01-11-2017 14:25-0500 Weight 108.41 kg Tameka Gordon RN [facility] Work Phone: 08-16-2016 10:36-0400 BMI (Body Mass Index) 31.19 kg/m2 Natalya Quiñonez RN [facility] Work Phone: 08-16-2016 10:36-0400 Body Temperature 98.8 [degF] Natalya Quiñonez RN [facility] Work Phone: 08-16-2016 10:36-0400 BP Diastolic 78 mm[Hg] Natalya Quiñonez RN [facility] Work Phone: 08-16-2016 10:36-0400 BP Systolic 126 mm[Hg] Natalya Quiñonez RN [facility] Work Phone: 08-16-2016 10:36-0400 Height 182.88 cm Natalya Quiñonez RN [facility] Work Phone: 08-16-2016 10:36-0400 Pulse (Heart Rate) 95 /min Natalya Quiñonez RN [facility] Work Phone: 08-16-2016 10:36-0400 Respiratory Rate 16 /min Natalya Quiñonez RN [facility] Work Phone: 08-16-2016 10:36-0400 Weight 104.33 kg Natalya Quiñonez RN [facility] Work Phone: 12-30-2015 15:02-0500 BSA (Body Surface Area) 2.31 m2 Natalya Quiñonez RN [facility] Work Phone: 12-24-2014 12:35-0500 Pulse Oximetry 95 % Natalya Quiñonez RN [facility] Work Phone: Encounters Encounter Date Encounter Type Care Provider Facility Start: 07-04-2020 ambulatory SELF SELF Facility:[facility] Procedures Date Procedure Procedure Detail Performing Clinician Start: 01-11-2017 End: 01-11-2017 COLLETTE Owens MD Work Phone: Start: 01-11-2017 End: 01-11-2017 Follow Up Appt 6 months Hiram Owens MD Work Phone: Start: 01-06-2017 End: 01-11-2017 *Hepatic Function Panel Hiram Owens MD Work Phone: Start: 01-06-2017 End: 01-11-2017 Lipid 1996 panel - Serum or Plasma Hiram Owens MD Work Phone: Start: 07-06-2016 End: 12-23-2016 COLLETTE Yousuf Brown CERTIFIED DENTAL ASSISTANT-C Start: 07-06-2016 End: 12-23-2016 Follow Up Appt 6 months Yousuf Brown CERTIFIED DENTAL ASSISTANT -C Start: 12-30-2015 End: 06-19-2016 *Hepatic Function Panel Hiram Owens MD Work Phone: Start: 12-30-2015 End: 06-19-2016 Cholesterol in LDL [Mass/volume] in Serum or Plasma by Direct assay Hiram Owens MD Work Phone: Start: 12-30-2015 End: 12-30-2015 COLLETTE Owens MD Work Phone: Start: 12-30-2015 End: 12-30-2015 Follow Up Appt 6 months Hiram Owens MD Work Phone: Start: 12-30-2015 End: 06-19-2016 Lipid 1996 panel - Serum or Plasma Hiram Owens MD Work Phone: Start: 06-24-2015 End: 12-18-2015 Lipid 1996 panel - Serum or Plasma Hiram Owens MD Work Phone: Start: 02-04-2015 End: 12-18-2015 Lipid 1996 panel - Serum or Plasma Hiram Owens MD Work Phone: Start: 12-24-2014 End: 12-18-2015 *Hepatic Function Panel Hiram Owens MD Work Phone: Start: 12-24-2014 End: 12-24-2014 COLLETTE Owens MD Work Phone: Start: 12-24-2014 End: 12-25-2014 Documentation of current medications Hiram Owens MD Work Phone: Start: 12-24-2014 End: 12-24-2014 Follow Up Appt 1 year Fernando Santana Work Phone: Start: 12-24-2014 End: 12-24-2014 Follow Up BP Check Hiram Owens MD Work Phone: Start: 12-24-2014 End: 12-25-2014 Smoking cessation education Hiram Owens MD Work Phone: Start: 06-21-2014 End: 12-24-2014 *Hepatic Function Panel Hiram Owens MD Work Phone: Start: 06-21-2014 End: 12-24-2014 Lipid 1996 panel - Serum or Plasma Hiram Owens MD Work Phone: Start: 12-25-2013 End: 12-18-2014 ANTONYN Hiram Owens MD Work Phone: Start: 12-25-2013 End: 12-18-2014 Follow Up Appt 1 year Fernando Santana Work Phone: Start: 12-19-2013 End: 12-22-2013 *Hepatic Function Panel Hiram Owens MD Work Phone: Start: 12-19-2013 End: 12-22-2013 Lipid 1996 panel - Serum or Plasma Hiram Owens MD Work Phone: Start: 12-08-2012 End: 12-08-2012 COLLETTE Owens MD Work Phone: Start: 12-08-2012 End: 12-08-2012 Follow Up Appt 1 year Fernando Santana Work Phone: Start: 08-03-2012 End: 12-08-2012 *Hepatic Function Panel Bryant hernandez MD Start: 08-03-2012 End: 12-08-2012 Lipid 1996 panel - Serum or Plasma Bryant Arguelles MD Start: 05-10-2012 End: 05-10-2012 Follow Up Appt 6 months Bryant hernandez MD Start: 02-24-2012 End: 05-04-2012 *Hepatic Function Panel Bryant hernandez MD Start: 02-24-2012 End: 05-04-2012 Lipid 1996 panel - Serum or Plasma Bryant Agruelles MD Start: 12-01-2011 End: 12-01-2011 Follow Up Appt 6 months Bryant hernandez MD Start: 10-21-2011 End: 11-30-2011 *Hepatic Function Panel Bryant hernandez MD Start: 10-21-2011 End: 11-30-2011 Lipid 1996 panel - Serum or Plasma Bryant Arguelles MD Start: 05-04-2011 End: 05-04-2011 Follow Up Appt 6 months Bryant hernandez MD Plan of Treatment Date Care Activity Detail Author Start: 08-05-2017 End: 08-05-2017 Appointment Appointment [facility] Work Phone: Start: 01-11-2017 End: 01-11-2017 Appointment Appointment [facility] Work Phone: Start: 01-11-2017 End: 01-11-2017 *Hepatic Function Panel *Hepatic Function Panel [facility] Work Phone: Start: 01-11-2017 End: 01-11-2017 DJN DJN [facility] Work Phone: Start: 01-11-2017 End: 01-11-2017 Follow Up Appt 6 months Follow Up Appt 6 months [facility] Work Phone: Start: 01-11-2017 End: 01-11-2017 Lipid panel [AGGREGATE] *Lipid Profile CC PCP [facility] Work Phone: Start: 01-06-2017 End: 01-11-2017 *Hepatic Function Panel *Hepatic Function Panel [facility] Work Phone: Start: 01-06-2017 End: 01-11-2017 Lipid panel [AGGREGATE] *Lipid Profile CC PCP [facility] Work Phone: Start: 07-06-2016 End: 12-23-2016 ANTONYN ANTONYN [facility] Work Phone: Start: 07-06-2016 End: 12-23-2016 Follow Up Appt 6 months Follow Up Appt 6 months [facility] Work Phone: Start: 12-30-2015 End: 06-19-2016 *Hepatic Function Panel *Hepatic Function Panel [facility] Work Phone: Start: 12-30-2015 End: 12-30-2015 COLLETTE HARDYN [facility] Work Phone: Start: 12-30-2015 End: 12-30-2015 Follow Up Appt 6 months Follow Up Appt 6 months [facility] Work Phone: Start: 12-30-2015 End: 06-19-2016 LDL Cholesterol *LDLD LDL Cholesterol - Direct [facility] Work Phone: Start: 12-30-2015 End: 06-19-2016 Lipid panel [AGGREGATE] *Lipid Profile CC PCP [facility] Work Phone: Start: 06-24-2015 End: 12-18-2015 Lipid panel [AGGREGATE] *Lipid Profile CC PCP [facility] Work Phone: Start: 02-04-2015 End: 12-18-2015 Lipid panel [AGGREGATE] *Lipid Profile CC PCP [facility] Work Phone: Start: 12-24-2014 End: 12-18-2015 *Hepatic Function Panel *Hepatic Function Panel [facility] Work Phone: Start: 12-24-2014 End: 12-24-2014 COLLETTE HARDYN [facility] Work Phone: Start: 12-24-2014 End: 12-24-2014 Follow Up Appt 1 year Follow Up Appt 1 year [facility] Work Phone: Start: 12-24-2014 End: 12-24-2014 Follow Up BP Check Follow Up BP Check [facility] Work Phone: Start: 06-21-2014 End: 12-24-2014 *Hepatic Function Panel *Hepatic Function Panel [facility] Work Phone: Start: 06-21-2014 End: 12-24-2014 Lipid panel [AGGREGATE] *Lipid Profile CC PCP [facility] Work Phone: Start: 12-25-2013 End: 12-18-2014 DJN DJN [facility] Work Phone: Start: 12-25-2013 End: 12-18-2014 Follow Up Appt 1 year Follow Up Appt 1 year [facility] Work Phone: Start: 12-19-2013 End: 12-22-2013 *Hepatic Function Panel *Hepatic Function Panel [facility] Work Phone: Start: 12-19-2013 End: 12-22-2013 Lipid panel [AGGREGATE] *Lipid Profile CC PCP [facility] Work Phone: Start: 12-08-2012 End: 12-08-2012 DJN DJN [facility] Work Phone: Start: 12-08-2012 End: 12-08-2012 Follow Up Appt 1 year Follow Up Appt 1 year [facility] Work Phone: Start: 08-03-2012 End: 12-08-2012 *Hepatic Function Panel *Hepatic Function Panel [facility] Work Phone: Start: 08-03-2012 End: 12-08-2012 Lipid panel [AGGREGATE] *Lipid Profile [facility] Work Phone: Start: 05-10-2012 End: 05-10-2012 Follow Up Appt 6 months Follow Up Appt 6 months [facility] Work Phone: Start: 02-24-2012 End: 05-04-2012 *Hepatic Function Panel *Hepatic Function Panel [facility] Work Phone: Start: 02-24-2012 End: 05-04-2012 Lipid panel [AGGREGATE] *Lipid Profile [facility] Work Phone: Start: 12-01-2011 End: 12-01-2011 Follow Up Appt 6 months Follow Up Appt 6 months [facility] Work Phone: Start: 10-21-2011 End: 11-30-2011 *Hepatic Function Panel *Hepatic Function Panel [facility] Work Phone: Start: 10-21-2011 End: 11-30-2011 Lipid panel [AGGREGATE] *Lipid Profile [facility] Work Phone: Start: 05-04-2011 End: 05-04-2011 Follow Up Appt 6 months Follow Up Appt 6 months [facility] Work Phone: Patient Education [facility] Work Phone: Payers Date Payer Category Payer Unknown [id number] 1960 Unknown [id number] Summary Purpose Family History No Family History Records Found Advance Directives No Advanced Directives Records Found Additional Source Comments (unrecognized sect ion and content) No Status Records Found INFORMATION SOURCE (unrecogn ized section and content) FOR RECORDS PERTAINING TO PATIENTS WHO ARE OR HAVE BEEN ENROLLED IN A CHEMICAL DEPENDENCY/SUBSTANCEABUSE PROGRAM, SOME INFORMATION MAY BE OMITTED. This clinical summary was aggregated from multiple sources. Caution should be exercised in using it in the provision of clinical care. This summary normalizes information from multiple sources, and as a consequence, information in this document may materially change the coding, format and clinical context of patient data. In addition, data may be omitted in some cases. CLINICAL DECISIONS SHOULD BE BASED ON THE PRIMARY CLINICAL RECORDS. [facility]. provides no warranty or guarantee of the accuracy or completeness of information in this document.
--- OUTSIDE RECORDS SUMMARY | 2023-03-26 06:47 | XMS RPT_ITS | CCD ---
Author Name Unknown Address [address] [place] [address] Organization [facility] Care Team Providers Care Chief Relay Tester Name Role Phone MD Roman, Hiram Wheeler Unavailable [phone] DOMONIQUE Gordon, Tameka King Unavailable Unavailabl ruben Quiñonez RN, Natalya Saha Unavailable Unavailable SELF, SELF Referring Unavailable Medications Completed/Discontinued Medications Medication Drug Class(es) Dates Sig (Normalized) Sig (Original) 200 actuat albuterol 0.09 mg/actuat metered dose inhaler (3 sources) beta2-Adrenergic Agonist Start: 08-16-2016 PROAIR HFA 108 (90 Base) MCG/ACT AERS 2 puffs Q 4-6 hours prn ALBUTEROL SULFATE [id number] Yousuf Branham PA-C aspirin 325 mg oral tablet (6 sources) Nonsteroidal Anti-inflammatory Drug Start: 07-21-2010 take 1 tablet by mouth once daily ASPIRIN 325 MG TABS One tablet by mouth daily ASPIRIN [id number] Adrienne Albarado Problems Active Problems Problem Classification [...] 14:25-0500 Weight 108.41 kg Tameka Gordon RN [facility] Work Phone: 08-16-2016 10:36-0400 BMI (Body Mass Index) 31.19 kg/m2 Natalya Quiñonez RN [facility] Work Phone: 08-16-2016 10:36-0400 Body Temperature 98.8 [degF] Natalya Quiñonez RN [facility] Work Phone: 08-16-2016 10:36-0400 BP Diastolic 78 mm[Hg] Natalya Quiñonez RN [facility] Work Phone: 08-16-2016 10:36-0400 BP Systolic 126 mm[Hg] Natalya Quiñonez RN [facility] Work Phone: 08-16-2016 10:36-0400 Height 182.88 cm Natalya Quiñonez RN [facility] Work Phone: 08-16-2016 10:36-0400 Pulse (Heart Rate) 95 /min Natalya Quiñonez RN [facility] Work Phone: 08-16-2016 10:36-0400 Respiratory Rate 16 /min Natalya Quiñonez RN [facility] Work Phone: 08-16-2016 10:36-0400 Weight 104.33 kg Natalya Quiñonez RN [facility] Work Phone: 12-30-2015 15:02-0500 BSA (Body Surface Area) 2.31 m2 Natalya Quiñonez RN [facility] Work Phone: 12-24-2014 12:35-0500 Pulse Oximetry 95 % Natalya Quiñonez RN [facility] Work Phone: Encounters Encounter Date Encounter Type Care Provider Facility Start: 07-04-2020 ambulatory SELF SELF Facility:[facility] Procedures Date Procedure Procedure Detail Performing Clinician [...] Start: 07-06-2016 End: 12-23-2016 COLLETTE Yousuf Brown STALLION KEEPER-C Start: 07-06-2016 End: 12-23-2016 Follow Up Appt 6 months Yousuf Brown STALLION KEEPER -C Start: 12-30-2015 End: 06-19-2016 *Hepatic Function [...] Serum or Plasma Bryant Arguelles MD Start: 12-01-2011 End: 12-01-2011 Follow Up Appt 6 months Bryant hernandez MD Start: 10-21-2011 End: 11-30-2011 *Hepatic Function Panel Bryant hernandez MD Start: 10-21-2011 End: 11-30-2011 Lipid 1996 panel - Serum or Plasma Bryant Arguelles MD Start: 05-04-2011 End: 05-04-2011 Follow Up Appt 6 months Bryant hernandez MD Plan of Treatment Date Care Activity Detail Author Start: 08-05-2017 End: 08-05-2017 Appointment Appointment [facility] Work Phone: Start: 01-11-2017 End: 01-11-2017 Appointment Appointment [facility] Work Phone: Start: 01-11-2017 End: 01-11-2017 *Hepatic Function Panel *Hepatic Function Panel [facility] Work Phone: Start: 01-11-2017 End: 01-11-2017 DJN DJN [facility] Work Phone: Start: 01-11-2017 End: 01-11-2017 Follow Up Appt 6 months Follow Up Appt 6 months [facility] Work Phone: Start: 01-11-2017 End: 01-11-2017 Lipid panel [AGGREGATE] *Lipid Profile CC PCP [facility] Work Phone: Start: 01-06-2017 End: 01-11-2017 *Hepatic Function Panel *Hepatic Function Panel [facility] Work Phone: Start: 01-06-2017 End: 01-11-2017 Lipid panel [AGGREGATE] *Lipid Profile CC PCP [facility] Work Phone: Start: 07-06-2016 End: 12-23-2016 ANTONYN ANTONYN [facility] Work Phone: Start: 07-06-2016 End: 12-23-2016 Follow Up Appt 6 months Follow Up Appt 6 months [facility] Work Phone: Start: 12-30-2015 End: 06-19-2016 *Hepatic Function Panel *Hepatic Function Panel [facility] Work Phone: Start: 12-30-2015 End: 12-30-2015 COLLETTE HARDYN [facility] Work Phone: Start: 12-30-2015 End: 12-30-2015 Follow Up Appt 6 months Follow Up Appt 6 months [facility] Work Phone: Start: 12-30-2015 End: 06-19-2016 LDL Cholesterol *LDLD LDL Cholesterol - Direct [facility] Work Phone: Start: 12-30-2015 End: 06-19-2016 Lipid panel [AGGREGATE] *Lipid Profile CC PCP [facility] Work Phone: Start: 06-24-2015 End: 12-18-2015 Lipid panel [AGGREGATE] *Lipid Profile CC PCP [facility] Work Phone: Start: 02-04-2015 End: 12-18-2015 Lipid panel [AGGREGATE] *Lipid Profile CC PCP [facility] Work Phone: Start: 12-24-2014 End: 12-18-2015 *Hepatic Function Panel *Hepatic Function Panel [facility] Work Phone: Start: 12-24-2014 End: 12-24-2014 COLLETTE HARDYN [facility] Work Phone: Start: 12-24-2014 End: 12-24-2014 Follow Up Appt 1 year Follow Up Appt 1 year [facility] Work Phone: Start: 12-24-2014 End: 12-24-2014 Follow Up BP Check Follow Up BP Check [facility] Work Phone: Start: 06-21-2014 End: 12-24-2014 *Hepatic Function Panel *Hepatic Function Panel [facility] Work Phone: Start: 06-21-2014 End: 12-24-2014 Lipid panel [AGGREGATE] *Lipid Profile CC PCP [facility] Work Phone: Start: 12-25-2013 End: 12-18-2014 DJN DJN [facility] Work Phone: Start: 12-25-2013 End: 12-18-2014 Follow Up Appt 1 year Follow Up Appt 1 year [facility] Work Phone: Start: 12-19-2013 End: 12-22-2013 *Hepatic Function Panel *Hepatic Function Panel [facility] Work Phone: Start: 12-19-2013 End: 12-22-2013 Lipid panel [AGGREGATE] *Lipid Profile CC PCP [facility] Work Phone: Start: 12-08-2012 End: 12-08-2012 DJN DJN [facility] Work Phone: Start: 12-08-2012 End: 12-08-2012 Follow Up Appt 1 year Follow Up Appt 1 year [facility] Work Phone: Start: 08-03-2012 End: 12-08-2012 *Hepatic Function Panel *Hepatic Function Panel [facility] Work Phone: Start: 08-03-2012 End: 12-08-2012 Lipid panel [AGGREGATE] *Lipid Profile [facility] Work Phone: Start: 05-10-2012 End: 05-10-2012 Follow Up Appt 6 months Follow Up Appt 6 months [facility] Work Phone: Start: 02-24-2012 End: 05-04-2012 *Hepatic Function Panel *Hepatic Function Panel [facility] Work Phone: Start: 02-24-2012 [...] Phone: Payers Date Payer Category Payer Unknown [id number] 1960 Unknown [id number] [id number]. [id number] Summary Purpose Family History No Family History [...] BE BASED ON THE PRIMARY CLINICAL RECORDS. [facility]. provides no warranty or guarantee of the accuracy or completeness of information in this document.
[2023-03-26 08:05] LABS: AST(SGOT) 26 U/L (15-37); Alanine Aminotransfer ALT/SGPT 39 U/L (16-61); Albumin, Serum 3.9 g/dL (3.2-5.0); Alkaline Phosphatase 85 U/L (45-117); Bilirubin, Direct 0.12 mg/dL (0.00-0.30); Cholesterol 115 mg/dL (200); Globulin 3.3 g/dL (2.2-4.2); High Density Lipoprotein 37 mg/dL; Protein, Total 7.2 g/dL (6.4-8.2); Triglycerides 203 mg/dL; Very Low Density Lipoprotein 41 mg/dL (5-40)
== END | disposition home or self-care (01) ==
LOC: LAB 06:41
PROVIDERS: PCP Nurse Practitioner Family; Referring Provider Physician Assistant Medical; Visit Provider Physician Assistant Medical
DX: E78.00 Pure hypercholesterolemia, unspecified (principal)
CPT/HCPCS: 36415; 80061; 80076

== ENCOUNTER 2023-07-15 08:49 | Outpatient (RCR) | payer OTHER, SELFPAY ==
[2023-07-15 09:17] VITALS: BP 139/88; PULSE 73; RESP 18; TEMP 36.2; BMI 29.5
--- NOTE | 2023-07-15 10:32 | HP.PCM_ITS ---
History of Present Illness Date of Service: 07/15/23 Chief Complaint: Left hallux wound History of Wound: Patient is a 63-year-old male who reports of new blister to the left hallux of 1 week duration. 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 Reports keeping it dry with clean sterile dressings. He states he did follow-up with Aleena Narayan CNP and was referred to the wound care center. Patient reports recent A1c 6.6%. Does continue to smoke. Currently on Plavix, statin, metformin, lisinopril, and metoprolol. He states that the toe did turn a little red but denies anything of drainage from the toe. Denies having pain with the toe but states that he has always had neuropathy before his diagnosis of diabetes. Denies constitutional symptoms. Denies further complaints. [facility] Medical History Atherosclerotic heart disease of [place] coronary artery without angina pectoris Back pain Cardiology follow-up encounter Chest pain Diabetes Essential hypertension High cholesterol History of echocardiogram History of GI bleed History of inferior wall myocardial infarction (04/06/08) History of stress test HTN (hypertension) Hyperlipidemia Myocardial infarct Smoker TIA (transient ischemic attack) Wears dentures Wears glasses Home Medications ?Medication ?Instructions ?Recorded ?Last Taken ?Type aspirin 81 mg tablet,delayed 81 mg PO QDAY [facility] 09/03/17 06/14/20 History release (Adult Aspirin Regimen) nitroglycerin 0.4 mg sublingual 0.4 mg sublingual Q5-15M PRN chest 10/24/18 Unknown Rx tablet (Nitrostat) pain #25 tabs cholecalciferol (vitamin D3) 50 2,000 unit PO DAILY supplement 06/14/20 06/13/20 History mcg (2,000 unit) capsule clopidogrel 75 mg tablet (Plavix) 75 mg PO DAILY #21 tabs 06/15/20 10/24/22 Rx metformin 500 mg tablet 500 mg PO BID #60 tabs 06/15/20 Unknown Rx metoprolol tartrate 25 mg tablet 25 mg PO BID heart rate/BP #180 09/18/22 Unknown Rx tabs atorvastatin 40 mg tablet 40 mg PO DAILY cholesterol #90 tabs 01/22/23 Unknown Rx lisinopril 10 mg tablet 10 mg PO QDAY blood pressure #90 06/14/23 Unknown Rx tabs Allergy/AdvReac Type Severity Reaction Status Date / Time No Known Allergies Allergy Verified 02/23/23 15:26 Family History Father , Age 55 Asbestos exposure Cancer Mother , Age 71 Lung cancer Surgical History History of cardiac catheterization Stented coronary artery (03/2008) Social History Smoking Status: Current every day smoker tobacco type: cigarettes how long ago did patient quit smokin months ago quit status: has quit before alcohol intake: current details: rarely substance use type: does not use caffeine: Yes Type: carbonated beverages Number of servings: 3 ROS Constitutional Constitutional: Denies anorexia, change in weight, chills or fever(s) Eyes Eyes: Denies blurry vision, change in vision or double vision ENT HEENT: Denies dysphagia, nasal congestion, nasal discharge or sore throat Cardiovascular Cardiovascular: Denies chest pain, claudication or palpitations Respiratory/Chest Respiratory/Chest: Denies cough, shortness of breath at rest or wheezing Gastrointestinal Gastrointestinal: Denies abdominal pain, constipation, diarrhea, nausea or vomiting Genitourinary Genitourinary: Denies dysuria, hematuria or urinary urgency Musculoskeletal Musculoskeletal: Denies joint pain, joint stiffness or joint swelling Integumentary Integumentary: Denies lesions, pruritus or rash Neurologic Neurologic: Denies dizziness, numbness or seizures Psychiatric Psychiatric: Denies anxiety or depression Endocrine Endocrinology: Denies cold intolerance or heat intolerance Hematologic/Lymphatic Hematologic/Lymphatic: Denies easy bleeding or easy bruising Vital Signs Vital Signs Vital Signs: 07/15/23 09:17 Temperature 97.1 F L Temperature Source Temporal Pulse Rate 73 Respiratory Rate 18 Blood Pressure 139/88 H Blood Pressure Mean 105 Blood Pressure Source Monitor Weight Weight: 98.612 kg Body Mass Index (BMI) 29.5 Physical Exam Const alert, oriented x3 and no apparent distress General Appearance: cooperative HEENT normocephalic Eyes General Eye: normal appearance of both eyes Neck General: normal visual inspection Lymph Lymphatic: no lymphadenopathy noted and no lymphedema noted Resp normal respiratory effort Cardio regular rate and regular rhythm Extremity normal capillary refill, no joint enlargement, no calf tenderness and no pedal edema Extremity Narrative: Vascular: DP and PT pulses palpable bilateral. CFT less than 3 seconds to digits bilateral. Normal temperature gradient bilateral. There is hair growth present to digits of the foot bilateral. Neuro: Light touch sensation is diminished to the foot bilateral. Gross sensation is intact bilateral. Decreased protective sensation with 5.07g [place] monofilament to bilateral foot consistent with neuropathy. Musculoskeletal: Muscle strength 5 of 5 age-appropriate. There is decreased range of motion of the ankle joint bilaterally in dorsiflexion with the knee extended without pain or crepitus. There is decreased range of motion of the first metatarsophalangeal joint of the right foot without crepitus but pain is noted with extreme dorsiflexion. There is decreased range of motion of the first metatarsophalangeal joint of the left foot without pain but crepitus is noted. Range of motion further decreased with loading of the foot bilateral. This is consistent with bilateral functional hallux limitus right greater than left. Dermatologic: There is bilateral hyperkeratosis noted to the medial aspect of the hallucal IPJ consistent with spinner's callus secondary to bilateral functional hallux limitus right greater than left. Left hallux demonstrates localized erythema and edema with previous ruptured blister to the plantar aspect of the hallux. There is also a pinpoint darkened discolored lesion to the plantar central aspect of the hallux near site of blister. Following debridement foreign body was removed from the site measuring 1 cm x 0.3 cm. Object noted to be sharp metal shaving likely from his job. Following the deroofing of the blister healthy epithelial tissue was noted below. There is also venous stasis changes with hemosiderin deposition to the pretibial lower extremity bilateral. Skin skin turgor normal and no jaundice General Skin Exam: venous stasis and dermatitis Neuro moves all extremities Debridement Note Debridement Note Wound debrided: Left hallux Laterality: Left Wound Grade/Stage: Dobbs stage I Type of Debridement: Excisional debridement Anesthesia Used: 5% Lidocaine Gel Depth: Down to and including healthy tissue and in the subcutaneous layer Percentage of wound debrided: 100 Instrument Used: #15 blade Tissue Removed: Fibrous, devitalized subcutaneous, biofilm, slough Severity: Fat Layer Exposed Amount of bleeding with debridement: Mild Bleeding Controlled with: Compression and gauze Patient tolerated procedure: Patient tolerated procedure well Post-Debridement Measurements and Additional Note: Post-Debridement Measurements/Treatment - Nurse 1 - General Ulcer Assessment Start: 07/15/23 09:05 Freq: Status: Active Protocol: TOMMIE Activity Type Activity Date Activity User E-sign Co-sign Detail Recorded Client Recorded Date Recorded By Document 07/15/23 09:17 DL [id number] 07/15/23 09:34 DL 07/15/23 09:17 - Today's Visit Information Type of service Initial Visit Arrival Mode Ambulatory Transfer Assistance None Patient Identification Verified (Name & Yes ) Patient Requires Transmission-Based No Precautions Height and Weight Height 6 ft Weight 98.612 kg Weight in Pounds 217.4 lbs Body Mass Index (BMI) 29.5 BMI Classification Overweight BSA - Shyann 2.21 Vital Signs Temperature (97.8 F-99.1 F) 97.1 F L Temperature Source Temporal Pulse Rate (60-100) 73 Pulse Location Monitor Respiratory Rate (12-18) 18 Respiratory rate source Observation Blood Pressure (90/60-120/80) 139/88 H Blood Pressure Mean 105 Source Monitor Pain Scale: 0-10 Numeric Is Patient Pain Free? Yes Lower Extremity Assessment/ Foot Assessment/ Toe Nail Assessment Right -Posterior Tibial Palpable Yes -Dorsalis Pedis Palpable Yes -Extremity Color Hyperpigmented -Hair Growth on Legs Yes -Hair Growth on Toes No -Temperature of Extremity Warm -Capillary Refill Greater than 3 Seconds -Dependent Rubor No -Blanched when Elevated No -Lipodermatosclerosis No -Other Deformity No -Prior Foot Ulcer No -Charcot Joint No -Prior Amputation No -Thick No -Discolored No -Deformed No -Improper Length & Hygeine No Communication Assessment Preferred language [place] Able to Read Yes Able to Write Yes Communication Tools None Right Hearing Abillity Normal Left Hearing Abillity Normal Visual Assistive Devices Glasses Teaching Assessment Preferences Verbal,Written, Demonstration Barriers to Learning None Readiness To Learn Good Willingness to Engage in Self Management Med Activies Anxiety Level Calm Cooperation Cooperative Perception Coherent Interest in Health Problem Asks Questions Education Importance Acknowledges Need Does Patient Smoke tobacco or other Yes substances Smoking Status Current every day smoker Is Patient Diabetic Yes Functional Assessment Recent Decline in Ability to Perform Denies Any Declines 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 counseling psychologist to No meet you for the purpose of spiritual/ emotional support? Insulation Cupola Operator to contact place of baptism No WC - Nurse 1 - General Ulcer Measurement Start: 07/15/23 09:05 Freq: Status: Active Protocol: Activity Type Activity Date Activity User E-sign Co-sign Detail Recorded Client Recorded Date Recorded By Document 07/15/23 09:17 DL [email or web address] 07/15/23 09:34 DL 07/15/23 09:17 Wound Center Nurse 1 #1 L Grt Toe Cluster -Current Size (cm) - Length 2.2 -Current Size (cm) - Width 2.4 -Current Size (cm) - Depth 0.3 -Total Square Cm 5.28 -Photo Taken Yes -Exudate Amt Small -Wound Margin Indistinct, Non -Visible -Granulation Amt None Present (0 %) -Necrosis Amt Small (1-33%) -Structure Exposed N/A -Texture (Leonor-wound Skin Appearance) Localized Edema -Moisture (Leonor-wound Skin Appearance) Maceration -Color (Leonor-wound Skin Appearance) No Abnormality -Temperature (Leonor-wound Skin No Abnormality Appearance) (Pt Warm) -Tenderness on Palpation (Leonor-wound No Skin Appearance) -Ulcer Cleansing Soap and Water -Foul Odor after Cleansing No -Anesthetic Used 5% Lidocaine Gel MARY - Nurse 2 - General Ulcer CM Notes Start: 07/15/23 09:05 Freq: Status: Active Protocol: Activity Type Activity Date Activity User E-sign Co-sign Detail Recorded Client Recorded Date Recorded By Document 07/15/23 10:00 BMF 07/15/23 10:12 BMF Edit Result 07/15/23 10:00 BMF (1) 07/15/23 10:20 BMF (1) #1 L Grt Toe Cluster - Post Debridement (cm) - Length => 0.6 - Post Debridement (cm) - Width => 0.1 - Post Debridement (cm) - Depth => 0.1 - Total Square (Post) (cm) => 0.06 - Area of Debridement (cm) - Length => 0.6 - Area of Debridement (cm) - Width => 0.1 - Total Square (Area) (cm) => 0.06 07/15/23 10:00 Wound Center Nurse 2 -Time 10:04 -Correct Patient Yes -Correct Side, Site, Position Yes -Correct Procedure Yes -Procedure Performed Yes -Type of Procedure Debridement -Clinical Debridement Subcutaneous -Tissue Removed Subcutaneous -Post Debridement (cm) - Length 0.6 -Post Debridement (cm) - Width 0.1 -Post Debridement (cm) - Depth 0.1 -Total Square (Post) (cm) 0.06 -Area of Debridement (cm) - Length 0.6 -Area of Debridement (cm) - Width 0.1 -Total Square (Area) (cm) 0.06 -Tunneling No -Undermining/Tunneling No -Circular Undermining No -Wound/Ulcer Outcome Not Healed -Ulcer Cleansing Rinsed/ Irrigated with Saline -Foul Odor after Cleansing No -Bioengineered Tissue No -Bleeding Controlled with Pressure -Treatment Response Procedure Tolerated Well -Offloading Yes -Type of Offloading Other -Other Type of Offloading SCHED APPT W/ ALMA F & A FOR CUSTOM -Debridement - Subq, 1st 20sq cm Yes Pain Scale: 0-10 Numeric Is Patient Pain Free? Yes Assessment/Plan Assessment/Plan (1) Cellulitis of left toe: CODE(S): L03.032 - Cellulitis of left toe (2) Foreign body of toe, left, infected: CODE(S): S90.455A - Superficial foreign body, left lesser toe(s), initial encounter; L08.9 - Local infection of the skin and subcutaneous tissue, unspecified (3) Non-pressure chronic ulcer of other part of left foot with fat layer exposed: CODE(S): L97.522 - Non-pressure chronic ulcer of other part of left foot with fat layer exposed (4) Type 2 diabetes mellitus without complications: CODE(S): E11.9 - Type 2 diabetes mellitus without complications (5) Type 2 diabetes mellitus with foot ulcer: CODE(S): E11.621 - Type 2 diabetes mellitus with foot ulcer; L97.509 - Non-pressure chronic ulcer of other part of unspecified foot with unspecified severity (6) Hallux limitus of left foot: CODE(S): M20.5X2 - Other deformities of toe(s) (acquired), left foot (7) Other hereditary and idiopathic neuropathies: CODE(S): G60.8 - Other hereditary and idiopathic neuropathies (8) Hallux limitus of right foot: CODE(S): M20.5X1 - Other deformities of toe(s) (acquired), right foot PLAN: Plan Patient seen and evaluated LEAS and venous studies were ordered to obtain baseline on 07/15/2023. There is bilateral hyperkeratosis noted to the medial aspect of the hallucal IPJ consistent with spinner's callus secondary to bilateral functional hallux limitus right greater than left. Left hallux demonstrates localized erythema and edema with previous ruptured blister to the plantar aspect of the hallux. There is also a pinpoint darkened discolored lesion to the plantar central aspect of the hallux near site of blister. Left hallux underwent debridement as noted in the clinical panel above. Left hallux ulceration measures 0.8 cm x 0.1 cm x 0.1 cm. Site was dressed with Abby dry sterile dressing. He was instructed to continue padding and protecting the previously deroofed blister skin to the plantar hallux. He is to change dressing daily. Discussed his case and condition of bilateral hallux limitus with right greater than left. Patient did go to office and obtain power step inserts. Break-in protocol was discussed for these inserts. He did return and I did fashion a felt offloading pad to the first metatarsophalangeal joint bilaterally simulating a Aldridge's extension. He was instructed to continue to wear these for additional offloading of that hallux. Discussed his case and condition of cellulitis of the left hallux. Upon debridement and removal of the blister skin a darkened discolored lesion central plantar hallux was noted and following localized debridement of the surrounding hyperkeratosis there appeared to be a pinpoint track consistent with foreign body. Pressure was applied about the site of possible foreign body and superficial foreign body did emerge from the site. Following debridement foreign body was removed from the site measuring 1 cm x 0.3 cm. Object noted to be sharp metal shaving likely from his job. I do feel that this foreign body originally started his cellulitis of the toe which also caused the blister to the plantar hallux. Rx Keflex 500 mg twice daily x 14 days. Discussed continued follow-up to monitor healing. Discussed signs and symptoms of infection. Discussed if he notices redness progressing from the toe to the dorsal foot, purulent drainage from his wound site, increasing foul odor or darkening of tissue, or if he develops fever greater than 101 degree accompanied by nausea, vomiting, chills that these are signs of a progressing infection and he should report to the ED to receive IV antibiotics and further evaluation. He is understanding of this today. Discussed adequate protein intake to aid in wound healing. Discussed Wang supplementation which was recommended. Discussed importance of daily foot checks. Patient states that he is unable to check his own feet and his vision is starting to become poor. I discussed incorporating his to assist in these daily checks. Discussed his newly diagnosed diabetic status and recent A1c of 6.6%. Discussed obtaining A1c is close to 6% as possible. Discussed proper diabetic diet to aid in overall health and wound healing. Discussed risks and complications of diabetes. He is understanding of our discussion and the need for continued surveillance to ensure no cuts or wounds or pressure sites to the foot. He is understanding to call the office sooner if he notices any of these. Discussed the need for smoking cessation to aid in wound healing and for his overall health benefit. Discussed benefits from stopping smoking. Discussed risks with continued smoking including decreased blood flow to lower extremities and vital organs and overall impairment in healing and organ systems. Smoking cessation was offered. Patient currently declines at this time. Discussed if he wishes to pursue further to obtain aids to quit smoking to speak with his PCP. He states he is understanding of this. A total of 3 minutes was spent on discussion ([id number]). The following work up and care recommendations were made: Dressing: Abby and dry sterile dressing. Change daily. Wash: Soap and water Tissue growth optimization: Abby Offload: Power step inserts with Alrdidge's extension to bilateral foot. Vascular: DP and PT pulses palpable with adequate capillary fill time. Vascular status not impacting healing. Edema: None Infection: Localized cellulitis secondary to foreign body of the left hallux which was removed in its entirety 07/15/2023. Pain: No pain to palpation. 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 Host factors: Neuropathy, DM type II, nicotine dependence, bilateral hallux limitus, PVD I answered all the patient's questions. To return to the wound healing center in 1 week or call sooner if the patient has any questions or concerns.
--- NOTE | 2023-07-20 08:34 | WC ---
07/13/2023 LEFT GREAT TOE
== END 2023-07-16 23:59 | disposition home or self-care (01) ==
LOC: WC 08:49
PROVIDERS: PCP Nurse Practitioner Family; Referring Provider Nurse Practitioner Family; Visit Provider Student in an Organized Health Care Education/Training Program
DX: E11.621 Type 2 diabetes mellitus with foot ulcer (principal); L97.522 Non-pressure chronic ulcer of other part of left foot with fat layer exposed; S90.455A Superficial foreign body, left lesser toe(s), initial encounter; S90.422A Blister (nonthermal), left great toe, initial encounter; X58.XXXA Exposure to other specified factors, initial encounter; L03.032 Cellulitis of left toe; M20.5X2 Other deformities of toe(s) (acquired), left foot; I10 Essential (primary) hypertension; E78.00 Pure hypercholesterolemia, unspecified; I25.10 Atherosclerotic heart disease of native coronary artery without angina pectoris; G60.9 Hereditary and idiopathic neuropathy, unspecified; F17.210 Nicotine dependence, cigarettes, uncomplicated; Z79.82 Long term (current) use of aspirin; Z79.84 Long term (current) use of oral hypoglycemic drugs; Z79.02 Long term (current) use of antithrombotics/antiplatelets; Z79.899 Other long term (current) drug therapy; Z86.73 Personal history of transient ischemic attack (TIA), and cerebral infarction without residual deficits; Z95.5 Presence of coronary angioplasty implant and graft
CPT/HCPCS: 11042; 99214; G0463

== ENCOUNTER 2023-07-29 08:15 | Outpatient (RCR) | payer OTHER, SELFPAY ==
[2023-07-17 02:42] VITALS: BP 139/88; PULSE 73; RESP 18; TEMP 36.2; BMI 29.5
[2023-07-22 08:05] VITALS: BP 126/79; PULSE 70; RESP 20; TEMP 36.3
--- NOTE | 2023-07-22 09:03 | PCM.WC.PN ---
History of Present Illness Date of Service: 07/22/23 Chief Complaint: Left hallux wound History of Wound: Patient is a 63-year-old male who reports of new blister to the left hallux of 1 week duration. 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 Reports keeping it dry with clean sterile dressings. He states he did follow-up with Aleena Narayan CNP and was referred to the wound care center. Patient reports recent A1c 6.6%. Does continue to smoke. Currently on Plavix, statin, metformin, lisinopril, and metoprolol. He states that the toe did turn a little red but denies anything of drainage from the toe. Denies having pain with the toe but states that he has always had neuropathy before his diagnosis of diabetes. Denies constitutional symptoms. Denies further complaints. Subjective Subjective This is a 63-year-old male who presents today to the wound care center for a follow-up of left hallux ulceration secondary to foreign body. He states he has gotten used to the orthotic inserts with a Aldridge's extension and can tell there is less pressure to his hallux. States he continues to change the dressing daily and does note continued improvement in healing. Denies constitutional symptoms. Denies further complaints. Objective Data Objective Data Vital Signs: Vital Signs Temp Pulse Resp BP 97.3 F L 70 20 H 126/79 H 07/22/23 08:05 07/22/23 08:05 07/22/23 08:05 07/22/23 08:05 Weight: 98.535 kg Body Mass Index (BMI) 29.5 Physical Exam Const alert, oriented x3 and no apparent distress General Appearance: cooperative HEENT normocephalic Eyes General Eye: normal appearance of both eyes Neck General: normal visual inspection Lymph Lymphatic: no lymphadenopathy noted and no lymphedema noted Resp normal respiratory effort Cardio regular rate and regular rhythm Extremity Extremity Narrative: Vascular: DP and PT pulses palpable bilateral. CFT less than 3 seconds to digits bilateral. Normal temperature gradient bilateral. There is hair growth present to digits of the foot bilateral. Neuro: Light touch sensation is diminished to the foot bilateral. Gross sensation is intact bilateral. Decreased protective sensation with 5.07g [place] monofilament to bilateral foot consistent with neuropathy. Musculoskeletal: Muscle strength 5 of 5 age-appropriate. There is decreased range of motion of the ankle joint bilaterally in dorsiflexion with the knee extended without pain or crepitus. There is decreased range of motion of the first metatarsophalangeal joint of the right foot without crepitus but pain is noted with extreme dorsiflexion. There is decreased range of motion of the first metatarsophalangeal joint of the left foot without pain but crepitus is noted. Range of motion further decreased with loading of the foot bilateral. This is consistent with bilateral functional hallux limitus right greater than left. Dermatologic: There is bilateral hyperkeratosis noted to the medial aspect of the hallucal IPJ consistent with spinner's callus secondary to bilateral functional hallux limitus right greater than left. Left hallux demonstrated localized erythema and edema with previous ruptured blister to the plantar aspect of the hallux during visit 07/15/23. There is also a pinpoint darkened discolored lesion to the plantar central aspect of the hallux near site of blister. Following debridement foreign body was removed 07/15/23 from the site measuring 1 cm x 0.3 cm. Object noted to be sharp metal shaving likely from his job. There is new epithelialized skin about the hallux today. Erythema resolved. There is also venous stasis changes with hemosiderin deposition to the pretibial lower extremity bilateral. Skin no rashes or lesions noted, skin turgor normal and no jaundice General Skin Exam: venous stasis and dermatitis Neuro moves all extremities Debridement Note Debridement Note Wound debrided: Left hallux Laterality: Left Wound Grade/Stage: Dobbs stage I Type of Debridement: Excisional debridement Anesthesia Used: 5% Lidocaine Gel Depth: Down to and including healthy tissue and in the subcutaneous layer Percentage of wound debrided: 100 Instrument Used: #15 blade Tissue Removed: Fibrous, devitalized subcutaneous, biofilm, slough Severity: Fat Layer Exposed Amount of bleeding with debridement: Mild Bleeding Controlled with: Compression and gauze Patient tolerated procedure: Patient tolerated procedure well Post-Debridement Measurements and Additional Note: Post-Debridement Measurements/Treatment WC - Nurse 1 - General Ulcer Assessment Start: 07/22/23 08:05 Freq: Status: Active Protocol: TOMMIE Activity Type Activity Date Activity User E-sign Co-sign Detail Recorded Client Recorded Date Recorded By Document 07/22/23 08:05 DL [email or web address] 07/22/23 08:11 DL 07/22/23 08:05 WC - Today's Visit Information Type of service Follow-up Visit (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 ) Transfer Assistance None Patient Identification Verified (Name & Yes ) Patient Requires Transmission-Based No Precautions Height and Weight Weight 98.535 kg Weight in Pounds 217.2 lbs Weight Measurement Method Estimated by Patient Vital Signs Temperature (97.8 F-99.1 F) 97.3 F L Temperature Source Temporal Pulse Rate (60-100) 70 Pulse Location Monitor Respiratory Rate (12-18) 20 H Respiratory rate source Observation Blood Pressure (90/60-120/80) 126/79 H Blood Pressure Mean (mm Hg) 94 Source Monitor History Since Last Visit- (Skip if this is Patient's initial visit) Have you changed medications since your No last visit? Any new allergies or adverse reactions No Had a fall/change in ADL's that may No increase risk of falls Signs or symptoms of abuse and/or No neglect since last visit Have you been in the hospital since your No last visit? Has dressing in place as prescribed Yes Has compression in place as prescribed N/A Has offloadiing in place as prescribed Yes Experienced any changes in pain level or No management Pain Scale: 0-10 Numeric Is Patient Pain Free? Yes - Nurse 1 - General Ulcer Measurement Start: 07/22/23 08:05 Freq: Status: Active Protocol: Activity Type Activity Date Activity User E-sign Co-sign Detail Recorded Client Recorded Date Recorded By Document 07/22/23 08:05 DL [email or web address] 07/22/23 08:11 DL 07/22/23 08:05 Wound Center Nurse 1 #1 L Grt Toe Cluster -Current Size (cm) - Length 0.7 -Current Size (cm) - Width 0.2 -Current Size (cm) - Depth 0.1 -Total Square Cm 0.14 -Exudate Amt None Present -Wound Margin Thickened -Granulation Amt Small (1-33%) -Granulation Quality [place] -Necrosis Amt None Present (0 %) -Structure Exposed N/A -Texture (Leonor-wound Skin Appearance) Scarring -Moisture (Leonor-wound Skin Appearance) No Abnormality -Color (Leonor-wound Skin Appearance) No Abnormality -Temperature (Leonor-wound Skin No Abnormality Appearance) (Pt Warm) -Tenderness on Palpation (Leonor-wound No Skin Appearance) -Ulcer Cleansing Soap and Water -Foul Odor after Cleansing No -Anesthetic Used 5% Lidocaine Gel - Nurse 2 - General Ulcer CM Notes Start: 07/22/23 08:05 Freq: Status: Active Protocol: Activity Type Activity Date Activity User E-sign Co-sign Detail Recorded Client Recorded Date Recorded By Document 07/22/23 08:40 [facility] 07/22/23 08:49 [facility] 07/22/23 08:40 Wound Center Nurse 2 -Time 08:41 -Correct Patient Yes -Correct Side, Site, Position Yes -Correct Procedure Yes -Procedure Performed Yes -Type of Procedure Debridement -Clinical Debridement Subcutaneous -Tissue Removed Subcutaneous -Post Debridement (cm) - Length 0.7 -Post Debridement (cm) - Width 0.1 -Post Debridement (cm) - Depth 0.1 -Total Square (Post) (cm) 0.07 -Area of Debridement (cm) - Length 0.7 -Area of Debridement (cm) - Width 0.1 -Total Square (Area) (cm) 0.07 -Tunneling No -Undermining/Tunneling No -Circular Undermining No -Wound/Ulcer Outcome Not Healed -Ulcer Cleansing Rinsed/ Irrigated with Saline -Foul Odor after Cleansing No -Bioengineered Tissue No -Bleeding Controlled with Pressure -Treatment Response Procedure Tolerated Well -Offloading Yes -Type of Offloading Other -Other Type of Offloading custom orthotic from [facility] -Debridement - Subq, 1st 20sq cm Yes Pain Scale: 0-10 Numeric Is Patient Pain Free? Yes - Nurse 3 - General Ulcer D/C NN Start: 07/22/23 08:05 Freq: Status: Active Protocol: Activity Type Activity Date Activity User E-sign Co-sign Detail Recorded Client Recorded Date Recorded By Document 07/22/23 08:58 RB wound center 07/22/23 08:58 RB 07/22/23 08:58 Wound Care Center Nurse 3 #1 L Grt Toe Cluster -Other Dressing gauze/ coban -Primary Dressing Covered/Secured with Dry Gauze Treatment Response Procedure Tolerated Well Pain Scale: 0-10 Numeric Is Patient Pain Free? Yes WC - Visit Discharge Discharge Condition Stable Ambulatory Status Ambulatory Transportation Private Auto Medication Reconcilliation completed & No provided to patient/care provider Clinical Summary of Care Provided Yes Assessment/Plan Assessment/Plan (1) Cellulitis of left toe: CODE(S): L03.032 - Cellulitis of left toe (2) Non-pressure chronic ulcer of other part of left foot with fat layer exposed: CODE(S): L97.522 - Non-pressure chronic ulcer of other part of left foot with fat layer exposed (3) Foreign body of toe, left, infected: CODE(S): S90.455A - Superficial foreign body, left lesser toe(s), initial encounter; L08.9 - Local infection of the skin and subcutaneous tissue, unspecified (4) Hallux limitus of left foot: CODE(S): M20.5X2 - Other deformities of toe(s) (acquired), left foot (5) Other hereditary and idiopathic neuropathies: CODE(S): G60.8 - Other hereditary and idiopathic neuropathies (6) Type 2 diabetes mellitus without complications: CODE(S): E11.9 - Type 2 diabetes mellitus without complications (7) Type 2 diabetes mellitus with foot ulcer: CODE(S): E11.621 - Type 2 diabetes mellitus with foot ulcer; L97.509 - Non-pressure chronic ulcer of other part of unspecified foot with unspecified severity (8) Essential hypertension: CODE(S): I10 - Essential (primary) hypertension (9) Hallux limitus of right foot: CODE(S): M20.5X1 - Other deformities of toe(s) (acquired), right foot PLAN: Plan Patient seen and evaluated LEAS and venous studies were ordered to obtain baseline on 07/15/2023, awaiting results. There is bilateral hyperkeratosis noted to the medial aspect of the hallucal IPJ consistent with spinner's callus secondary to bilateral functional hallux limitus right greater than left. Left hallux demonstrates resolved erythema s/p removal of foreign body 07/15/2023. Overall there is improvement in healing with new epithelialized skin about the hallux. There is still does remain a superficial skin split to the left hallux which demonstrates no signs of infection and is continuing to heal well. Left hallux underwent debridement as noted in the clinical panel above. Left hallux ulceration measures 0.7 cm x 0.1 cm x 0.1 cm. Site was dressed with Abby and dry sterile dressing. He is to change dressing daily. Discussed his case and condition of bilateral hallux limitus with right greater than left. Patient did go to office and obtain power step inserts. Break-in protocol was discussed for these inserts. He did return and I did fashion a felt offloading pad to the first metatarsophalangeal joint bilaterally simulating a Aldridge's extension. He was instructed to continue to wear these for additional offloading of that hallux. He continues to wear the power step inserts as of 07/22/2023 with noted improvement with decreased pressure to bilateral hallux with the Aldridge's extension. Discussed his case and condition of cellulitis of the left hallux. Cellulitis has resolved and he continues to heal well s/p removal of foreign body from left hallux measuring 1 cm x 0.3 cm. Object noted to be sharp metal shaving likely from his job. I do feel that this foreign body originally started his cellulitis of the toe which also caused the blister to the plantar hallux. Rx Keflex 500 mg twice daily x 14 days (stop date 07/29/2023). Discussed continued follow-up to monitor healing. He continues to take the oral antibiotic. Discussed signs and symptoms of infection. Discussed if he notices redness progressing from the toe to the dorsal foot, purulent drainage from his wound site, increasing foul odor or darkening of tissue, or if he develops fever greater than 101 degree accompanied by nausea, vomiting, chills that these are signs of a progressing infection and he should report to the ED to receive IV antibiotics and further evaluation. He is understanding of this today. Discussed adequate protein intake to aid in wound healing. Discussed Wang supplementation which was recommended. Discussed importance of daily foot checks. Patient states that he is unable to check his own feet and his vision is starting to become poor. I discussed incorporating his to assist in these daily checks. Discussed his newly diagnosed diabetic status and recent A1c of 6.6%. Discussed obtaining A1c is close to 6% as possible. Discussed proper diabetic diet to aid in overall health and wound healing. Discussed risks and complications of diabetes. He is understanding of our discussion and the need for continued surveillance to ensure no cuts or wounds or pressure sites to the foot. He is understanding to call the office sooner if he notices any of these. Previously discussed on 07/15/2023 the need for smoking cessation to aid in wound healing and for his overall health benefit. Discussed benefits from stopping smoking. Discussed risks with continued smoking including decreased blood flow to lower extremities and vital organs and overall impairment in healing and organ systems. Smoking cessation was offered. Patient currently declines at this time. Discussed if he wishes to pursue further to obtain aids to quit smoking to speak with his PCP. He states he is understanding of this. A total of 3 minutes was spent on discussion ([id number]). The following work up and care recommendations were made: Dressing: Abby and dry sterile dressing. Change daily. Wash: Soap and water Tissue growth optimization: Abby Offload: Power step inserts with Aldridge's extension to bilateral foot. Vascular: DP and PT pulses palpable with adequate capillary fill time. Vascular status not impacting healing. Edema: None Infection: Localized cellulitis secondary to foreign body of the left hallux which was removed in its entirety 07/15/2023. Pain: No pain to palpation. 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 Host factors: Neuropathy, DM type II, nicotine dependence, bilateral hallux limitus, PVD I answered all the patient's questions. To return to the wound healing center in 1 week or call sooner if the patient has any questions or concerns.
--- NOTE | 2023-07-23 07:45 | VDLE_ITS ---
Reason For Study: PVD RIGHT LEFT CFV is compressible, spontaneous, phasic, CFV is compressible, spontaneous, phasic, competent and demonstrates normal competent, and demonstrates normal augmentation. augmentation. FV is compressible, spontaneous, phasic, FV is compressible, spontaneous, phasic, competent and demonstrates normal competent and demonstrates normal augmentation. augmentation. POP V is compressible, spontaneous, phasic, POP V is compressible, spontaneous, phasic, competent and demonstrates normal competent and demonstrates normal augmentation. augmentation. T/P Trunk is compressible. T/P Trunk is compressible. PTV is compressible. PTV is compressible. RT PerV is compressible. LT PerV is compressible. SFJ is competent and measures 0.56 x 0.44 cm. SFJ is competent and measures 0.65 x 0.56 cm. GSV proximal thigh measures 0.36 x 0.30 cm. GSV proximal thigh measures 0.36 x 0.33 cm. GSV at knee measures 0.28 x 0.24 cm. GSV at knee measures 0.36 x 0.32 cm. GSV is competent throughout. GSV is competent throughout. SSV proximal calf is competent and measures SSV proximal calf is competent and measures 0.23 x 0.18 cm. 0.29 x 0.23 cm. Procedure This is a venous duplex using B-mode, color flow and spectral Doppler. Exam performed in department. The study was technically difficult. The exam was diagnostic. A preliminary report was called and/or faxed to @ [id number]. VL/Venous Duplex US - Henri Extrem Interpretation Summary Deep veins of the lower extremities are bilaterally patent and compressible seg mentally. There is no evidence of deep vein thrombosis on either side. Valvular competence appears in tact within the proximal deep venous systems bilaterally. The great saphenous veins appear bila terally patent and compressible segmentally. Sapheno-femoral junctions are bilaterally competent . Valvular competence appears to be intact segmentally within the great saphenous veins bilaterally. Small saphenous veins are patent and competent bilaterally. Ordering Physician: Tate Robert Referring Physician: Aleena Narayan Performed By: Maricruz Estrada, PAUL, RVT
[2023-07-29 08:16] VITALS: BP 142/80; PULSE 71; RESP 18; TEMP 36.2; BMI 29.5
--- NOTE | 2023-07-29 08:51 | PCM.WC.PN ---
History of Present Illness Date of Service: 07/29/23 Chief Complaint: Left hallux wound History of Wound: Patient is a 63-year-old male who reports of new blister to the left hallux of 1 week duration. 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 Reports keeping it dry with clean sterile dressings. He states he did follow-up with Aleena Narayan CNP and was referred to the wound care center. Patient reports recent A1c 6.6%. Does continue to smoke. Currently on Plavix, statin, metformin, lisinopril, and metoprolol. He states that the toe did turn a little red but denies anything of drainage from the toe. Denies having pain with the toe but states that he has always had neuropathy before his diagnosis of diabetes. Denies constitutional symptoms. Denies further complaints. Subjective Subjective This is a 63-year-old male who presents today to the wound care center for a follow-up of left hallux ulceration secondary to foreign body. He states he has gotten used to the orthotic inserts with a Aldridge's extension and can tell there is less pressure to his hallux continues to wear them daily. States he continues to change the dressing daily and does note continued improvement in healing and believes he has healed today. Denies constitutional symptoms. Denies further complaints. Objective Data Objective Data Vital Signs: Vital Signs Temp Pulse Resp BP O2 Del Method 97.1 F L 71 18 142/80 H Room Air 07/29/23 08:16 07/29/23 08:16 07/29/23 08:16 07/29/23 08:16 07/29/23 08:16 Oxygen Delivery Method Room Air Weight: 98.535 kg Body Mass Index (BMI) 29.5 Physical Exam Const alert, oriented x3 and no apparent distress General Appearance: cooperative HEENT normocephalic Eyes General Eye: normal appearance of both eyes Neck General: normal visual inspection Lymph Lymphatic: no lymphadenopathy noted and no lymphedema noted Resp normal respiratory effort Cardio regular rate and regular rhythm Extremity Extremity Narrative: Vascular: DP and PT pulses palpable bilateral. CFT less than 3 seconds to digits bilateral. Normal temperature gradient bilateral. There is hair growth present to digits of the foot bilateral. Neuro: Light touch sensation is diminished to the foot bilateral. Gross sensation is intact bilateral. Decreased protective sensation with 5.07g Kimberly Erin monofilament to bilateral foot consistent with neuropathy. Musculoskeletal: Muscle strength 5 of 5 age-appropriate. There is decreased range of motion of the ankle joint bilaterally in dorsiflexion with the knee extended without pain or crepitus. There is decreased range of motion of the first metatarsophalangeal joint of the right foot without crepitus but pain is noted with extreme dorsiflexion. There is decreased range of motion of the first metatarsophalangeal joint of the left foot without pain but crepitus is noted. Range of motion further decreased with loading of the foot bilateral. This is consistent with bilateral functional hallux limitus right greater than left. Dermatologic: There is bilateral hyperkeratosis noted to the medial aspect of the hallucal IPJ consistent with spinner's callus secondary to bilateral functional hallux limitus right greater than left. Left hallux demonstrated localized erythema and edema with previous ruptured blister to the plantar aspect of the hallux during visit 07/15/23. There is also a pinpoint darkened discolored lesion to the plantar central aspect of the hallux near site of blister. Following debridement foreign body was removed 07/15/23 from the site measuring 1 cm x 0.3 cm. Object noted to be sharp metal shaving likely from his job. There is new epithelialized skin about the hallux today. Erythema resolved. There is also venous stasis changes with hemosiderin deposition to the pretibial lower extremity bilateral. Skin no rashes or lesions noted, skin turgor normal and no jaundice General Skin Exam: venous stasis and dermatitis Neuro moves all extremities Debridement Note Debridement Note No debridement was completed: No debridement was completed today Post-Debridement Measurements and Additional Note: Post-Debridement Measurements/Treatment WC - Nurse 1 - General Ulcer Assessment Start: 07/22/23 08:05 Freq: Status: Active Protocol: [email or web address] Activity Type Activity Date Activity User E-sign Co-sign Detail Recorded Client Recorded Date Recorded By Document 07/22/23 08:05 DL [email or web address] 07/22/23 08:11 DL Document 07/29/23 08:16 DS 1 07/29/23 08:19 DS 07/22/23 07/29/23 08:05 08:16 WC - Today's Visit Information Type of service Follow-up Visit Follow-up Visit (Physician/[facility] (Physician/[facility] [facility] ) ) Arrival Mode Ambulatory Transfer Assistance None Patient Identification Verified (Name & Yes ) Patient Requires Transmission-Based No Precautions Safety Precautions NA Height and Weight Weight 98.535 kg Weight in Pounds 217.2 lbs Weight Measurement Method Estimated by Patient Body Mass Index (BMI) 29.5 BMI Classification Overweight Vital Signs Temperature (97.8 F-99.1 F) 97.3 F L 97.1 F L Temperature Source Temporal Temporal Pulse Rate (60-100) 70 71 Pulse Location Monitor Monitor Respiratory Rate (12-18) 20 H 18 Respiratory rate source Observation Observation Oxygen Delivery Method Room Air Blood Pressure (90/60-120/80) 126/79 H 142/80 H Blood Pressure Mean (mm Hg) 94 100 Source Monitor Monitor Position Sitting Blood Pressure Location Left Arm History Since Last Visit- (Skip if this is Patient's initial visit) Have you changed medications since your No No last visit? Any new allergies or adverse reactions No No Had a fall/change in ADL's that may No No increase risk of falls Signs or symptoms of abuse and/or No No neglect since last visit Have you been in the hospital since your No No last visit? Has dressing in place as prescribed Yes Yes Has compression in place as prescribed N/A No Has offloadiing in place as prescribed Yes No Experienced any changes in pain level or No No management Left Footwear Regular Shoe Right Footwear Regular Shoe Pain Scale: 0-10 Numeric Is Patient Pain Free? Yes Yes WC - Nurse 1 - General Ulcer Measurement Start: 07/22/23 08:05 Freq: Status: Active Protocol: Activity Type Activity Date Activity User E-sign Co-sign Detail Recorded Client Recorded Date Recorded By Document 07/22/23 08:05 DL [email or web address] 07/22/23 08:11 DL Document 07/29/23 08:16 DS 1 07/29/23 08:19 DS 07/22/23 07/29/23 08:05 08:16 Wound Center Nurse 1 #1 L Grt Toe Cluster -Current Size (cm) - Length 0.7 0.1 -Current Size (cm) - Width 0.2 0.1 -Current Size (cm) - Depth 0.1 0.1 -Total Square Cm 0.14 0.01 -Photo Taken No -Exudate Amt None Present -Wound Margin Thickened Distinct, Outline Attached -Granulation Amt Small (1-33%) -Granulation Quality Bandon -Necrosis Amt None Present (0 None Present (0 %) %) -Structure Exposed N/A -Texture (Leonor-wound Skin Appearance) Scarring Assessed -Moisture (Leonor-wound Skin Appearance) No Abnormality Assessed -Color (Leonor-wound Skin Appearance) No Abnormality Assessed -Temperature (Leonor-wound Skin No Abnormality No Abnormality Appearance) (Pt Warm) (Pt Warm) -Tenderness on Palpation (Leonor-wound No No Skin Appearance) -Ulcer Cleansing Soap and Water Rinsed/ Irrigated with Saline -Foul Odor after Cleansing No -Anesthetic Used 5% Lidocaine Gel WC - Nurse 2 - General Ulcer CM Notes Start: 07/22/23 08:05 Freq: Status: Active Protocol: Activity Type Activity Date Activity User E-sign Co-sign Detail Recorded Client Recorded Date Recorded By Document 07/22/23 08:40 [facility] 07/22/23 08:49 [facility] Document 07/29/23 08:38 [facility] 07/29/23 08:42 [facility] 07/22/23 07/29/23 08:40 08:38 Wound Center Nurse 2 #1 L Grt Toe Cluster -Time 08:41 08:38 -Correct Patient Yes -Correct Side, Site, Position Yes -Correct Procedure Yes -Procedure Performed Yes -Type of Procedure Debridement -Clinical Debridement Subcutaneous -Tissue Removed Subcutaneous -Post Debridement (cm) - Length 0.7 0 -Post Debridement (cm) - Width 0.1 0 -Post Debridement (cm) - Depth 0.1 0 -Total Square (Post) (cm) 0.07 0 -Area of Debridement (cm) - Length 0.7 0 -Area of Debridement (cm) - Width 0.1 -Total Square (Area) (cm) 0.07 -Tunneling No No -Undermining/Tunneling No No -Circular Undermining No No -Wound/Ulcer Outcome Not Healed Healed- Epithelialized -Ulcer Cleansing Rinsed/ Irrigated with Saline -Foul Odor after Cleansing No -Bioengineered Tissue No -Bleeding Controlled with Pressure -Treatment Response Procedure Tolerated Well -Offloading Yes -Type of Offloading Other -Other Type of Offloading custom orthotic from [facility] center -Debridement - Subq, 1st 20sq cm Yes Pain Scale: 0-10 Numeric Is Patient Pain Free? Yes Yes WC - Nurse 3 - General Ulcer D/C NN Start: 07/22/23 08:05 Freq: Status: Active Protocol: Activity Type Activity Date Activity User E-sign Co-sign Detail Recorded Client Recorded Date Recorded By Document 07/22/23 08:58 [facility] wound center 07/22/23 08:58 RB 07/22/23 08:58 Wound Care Center Nurse 3 #1 L Grt Toe Cluster -Other Dressing gauze/ coban -Primary Dressing Covered/Secured with Dry Gauze Treatment Response Procedure Tolerated Well Pain Scale: 0-10 Numeric Is Patient Pain Free? Yes WC - Visit Discharge Discharge Condition Stable Ambulatory Status Ambulatory Transportation Private Auto Medication Reconcilliation completed & No provided to patient/care provider Clinical Summary of Care Provided Yes Assessment/Plan Assessment/Plan (1) Cellulitis of left toe: CODE(S): L03.032 - Cellulitis of left toe (2) Non-pressure chronic ulcer of other part of left foot with fat layer exposed: CODE(S): L97.522 - Non-pressure chronic ulcer of other part of left foot with fat layer exposed (3) Foreign body of toe, left, infected: CODE(S): S90.455A - Superficial foreign body, left lesser toe(s), initial encounter; L08.9 - Local infection of the skin and subcutaneous tissue, unspecified (4) Hallux limitus of left foot: CODE(S): M20.5X2 - Other deformities of toe(s) (acquired), left foot (5) Other hereditary and idiopathic neuropathies: CODE(S): G60.8 - Other hereditary and idiopathic neuropathies (6) Type 2 diabetes mellitus without complications: CODE(S): E11.9 - Type 2 diabetes mellitus without complications (7) Type 2 diabetes mellitus with foot ulcer: CODE(S): E11.621 - Type 2 diabetes mellitus with foot ulcer; L97.509 - Non-pressure chronic ulcer of other part of unspecified foot with unspecified severity (8) Essential hypertension: CODE(S): I10 - Essential (primary) hypertension (9) Hallux limitus of right foot: CODE(S): M20.5X1 - Other deformities of toe(s) (acquired), right foot PLAN: Plan Patient seen and evaluated LEAS and venous studies were ordered to obtain baseline on 07/15/2023, awaiting results. There is bilateral hyperkeratosis noted to the medial aspect of the hallucal IPJ consistent with spinner's callus secondary to bilateral functional hallux limitus right greater than left. Left hallux demonstrates resolved erythema s/p removal of foreign body 07/15/2023. Overall there is improvement in healing with new epithelialized skin about the hallux and healed ulceration. Left hallux ulceration has healed today. Recommend continued offloading with power step inserts with the Aldridge's extension to bilateral foot. Discussed his case and condition on 07/15/23 of bilateral hallux limitus with right greater than left. Patient did go to office and obtain power step inserts. Break-in protocol was discussed for these inserts. He did return and I did fashion a felt offloading pad to the first metatarsophalangeal joint bilaterally simulating a Aldridge's extension. He was instructed to continue to wear these for additional offloading of that hallux. He continues to wear the power step inserts with noted improvement with decreased pressure to bilateral hallux with the Aldridge's extension. Discussed his case and condition of cellulitis of the left hallux. Cellulitis has resolved and he continues to heal well s/p removal of foreign body from left hallux measuring 1 cm x 0.3 cm. Object noted to be sharp metal shaving likely from his job. I do feel that this foreign body originally started his cellulitis of the toe which also caused the blister to the plantar hallux. Rx Keflex 500 mg twice daily x 14 days (stop date 07/29/2023). Discussed continued follow-up to monitor healing. He finished oral antibiotic. Discussed signs and symptoms of infection. Discussed if he notices redness progressing from the toe to the dorsal foot, purulent drainage from his wound site, increasing foul odor or darkening of tissue, or if he develops fever greater than 101 degree accompanied by nausea, vomiting, chills that these are signs of a progressing infection and he should report to the ED to receive IV antibiotics and further evaluation. He is understanding of this today. Discussed adequate protein intake to aid in wound healing. Discussed Wang supplementation which was recommended. Discussed importance of daily foot checks. Patient states that he is unable to check his own feet and his vision is starting to become poor. I discussed incorporating his to assist in these daily checks. Discussed his newly diagnosed diabetic status and recent A1c of 6.6%. Discussed obtaining A1c is close to 6% as possible. Discussed proper diabetic diet to aid in overall health and wound healing. Discussed risks and complications of diabetes. He is understanding of our discussion and the need for continued surveillance to ensure no cuts or wounds or pressure sites to the foot. He is understanding to call the office sooner if he notices any of these. Previously discussed on 07/15/2023 the need for smoking cessation to aid in wound healing and for his overall health benefit. Discussed benefits from stopping smoking. Discussed risks with continued smoking including decreased blood flow to lower extremities and vital organs and overall impairment in healing and organ systems. Smoking cessation was offered. Patient currently declines at this time. Discussed if he wishes to pursue further to obtain aids to quit smoking to speak with his PCP. He states he is understanding of this. A total of 3 minutes was spent on discussion ([id number]). The following work up and care recommendations were made: Dressing: None Wash: Soap and water Tissue growth optimization: None Offload: Power step inserts with Aldridge's extension to bilateral foot. Vascular: DP and PT pulses palpable with adequate capillary fill time. Vascular status not impacting healing. Edema: None Infection: Localized cellulitis secondary to foreign body of the left hallux which was removed in its entirety 07/15/2023. Pain: No pain to palpation. 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 Host factors: Neuropathy, DM type II, nicotine dependence, bilateral hallux limitus, PVD At this time he is healed and patient is being discharged from the wound care center today. I answered all the patient's questions. To return to the wound healing center as needed or call sooner if the patient has any questions or concerns.
--- NOTE | 2023-07-29 13:57 | WC ---
DOPPLER RESULTS REVIEWED W/ PATIENT BY DR NAZARIO TODAY PRIOR TO DISCHARGE.
== END 2023-08-15 23:59 | disposition home or self-care (01) ==
LOC: WC 08:15
PROVIDERS: PCP Nurse Practitioner Family; Referring Provider Nurse Practitioner Family; Visit Provider Student in an Organized Health Care Education/Training Program
DX: L97.522 Non-pressure chronic ulcer of other part of left foot with fat layer exposed (principal); E11.51 Type 2 diabetes mellitus with diabetic peripheral angiopathy without gangrene; I10 Essential (primary) hypertension; L03.032 Cellulitis of left toe; S90.455A Superficial foreign body, left lesser toe(s), initial encounter; I25.10 Atherosclerotic heart disease of native coronary artery without angina pectoris; E78.5 Hyperlipidemia, unspecified; M47.816 Spondylosis without myelopathy or radiculopathy, lumbar region; M20.5X1 Other deformities of toe(s) (acquired), right foot; M20.5X2 Other deformities of toe(s) (acquired), left foot; G60.8 Other hereditary and idiopathic neuropathies; F17.200 Nicotine dependence, unspecified, uncomplicated; Z79.82 Long term (current) use of aspirin; Z79.02 Long term (current) use of antithrombotics/antiplatelets; Z79.84 Long term (current) use of oral hypoglycemic drugs; Z79.899 Other long term (current) drug therapy; Z86.73 Personal history of transient ischemic attack (TIA), and cerebral infarction without residual deficits; Z95.5 Presence of coronary angioplasty implant and graft
CPT/HCPCS: 11042; 93970; 99213; G0463

== ENCOUNTER → 2024-02-10 | Outpatient (CLI) | payer OTHER, SELFPAY ==
[2024-02-10 08:38] LABS: AST(SGOT) 11 U/L (15-37); Alanine Aminotransfer ALT/SGPT 35 U/L (16-61); Albumin, Serum 3.4 g/dL (3.2-5.0); Alkaline Phosphatase 75 U/L (45-117); Bilirubin, Direct 0.07 mg/dL (0.00-0.30); Cholesterol 113 mg/dL (200); Globulin 3.4 g/dL (2.2-4.2); High Density Lipoprotein 51 mg/dL; Protein, Total 6.8 g/dL (6.4-8.2); Triglycerides 124 mg/dL; Very Low Density Lipoprotein 25 mg/dL (5-40)
== END | disposition home or self-care (01) ==
LOC: LAB 07:51
PROVIDERS: PCP Nurse Practitioner Family; Referring Provider Internal Medicine Cardiovascular Disease; Visit Provider Internal Medicine Cardiovascular Disease
DX: N52.9 Male erectile dysfunction, unspecified (principal)
CPT/HCPCS: 36415; 80061; 80076; 84403

== ENCOUNTER → 2024-03-03 | Outpatient (CLI) | payer OTHER, SELFPAY ==
--- NOTE | 2024-03-03 07:45 | RAD_ITS ---
EXAM: XR RIGHT FOOT COMPLETE, 3 OR MORE VIEWS CLINICAL INDICATION: chronic ulcer TECHNIQUE: Frontal, lateral and oblique views of the right foot. COMPARISON: No relevant prior studies available. FINDINGS: BONES/JOINTS: Unremarkable. No acute fracture. No subluxation. Normal alignment. Preservation of the joint space. No sclerotic or destructive changes observed. SOFT TISSUES: Unremarkable. No soft tissue swelling or gas. No radiopaque foreign body. RAD/Foot min 3 Views IMPRESSION: Negative right foot x-rays. Electronically Signed: Harpal Julio MD at 18:23 EST ,
--- NOTE | 2024-03-03 07:45 | RAD_ITS ---
EXAM: XR RIGHT TOES, 2 OR MORE VIEWS CLINICAL INDICATION: chronic ulcer TECHNIQUE: Frontal, lateral and oblique views of the toes of the right foot. COMPARISON: No relevant prior studies available. FINDINGS: BONES/JOINTS: Unremarkable. No acute fracture. No dislocation. SOFT TISSUES: Unremarkable. No radiopaque foreign body. RAD/Toe(s) Min 2 Views IMPRESSION: Negative right toe x-rays. Electronically Signed: Harpal Julio MD at 23:59 EST ,
== END | disposition home or self-care (01) ==
LOC: RAD 07:32
PROVIDERS: PCP Nurse Practitioner Family; Referring Provider Student in an Organized Health Care Education/Training Program; Visit Provider Student in an Organized Health Care Education/Training Program
DX: L97.512 Non-pressure chronic ulcer of other part of right foot with fat layer exposed (principal); E11.42 Type 2 diabetes mellitus with diabetic polyneuropathy; L03.031 Cellulitis of right toe
CPT/HCPCS: 73630; 73660

== ENCOUNTER 2024-03-16 09:45 | Outpatient (RCR) | payer OTHER, SELFPAY ==
[2024-03-02 09:12] VITALS: BP 145/80; PULSE 77; RESP 18; TEMP 36.4; BMI 29.7
--- NOTE | 2024-03-02 10:29 | PCM.WC.HP ---
History of Present Illness Date of Service: 03/02/24 Chief Complaint: Left hallux wound History of Wound: Patient is a 63-year-old male who reports of new blister to the distal third digit of the right foot roughly 3 weeks duration. 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 States applying Neosporin and dry dressing daily. Patient reports recent A1c 6.7%. Denies taking medication for diabetes and does not check blood sugar. Does continue to smoke. Currently on Plavix, statin, metformin, lisinopril, and metoprolol. He states that the toe did turn a little red but denies anything of drainage from the toe. Denies having pain with the toe but states that he has neuropathy. Was seen in the wound care center in 2023 for a plantar left hallux ulceration however does not consistently wear his offloading insert and the site is developing hyperkeratosis again. Denies N/V/F/chills. Denies further complaints. [facility] Medical History Wears dentures Wears glasses Diabetes High cholesterol Back pain TIA (transient ischemic attack) History of GI bleed History of stress test History of echocardiogram Cardiology follow-up encounter Smoker Myocardial infarct Chest pain Essential hypertension History of inferior wall myocardial infarction (04/06/08) Atherosclerotic heart disease of [place] coronary artery without angina pectoris Hyperlipidemia HTN (hypertension) Home Medications ?Medication ?Instructions ?Recorded ?Last Taken ?Type aspirin 81 mg tablet,delayed 81 mg PO QDAY [facility] 09/03/17 06/14/20 History release (Adult Aspirin Regimen) nitroglycerin 0.4 mg sublingual 0.4 mg sublingual Q5-15M PRN chest 10/24/18 Unknown Rx tablet (Nitrostat) pain #25 tabs cholecalciferol (vitamin D3) 50 2,000 unit PO DAILY supplement 06/14/20 06/13/20 History mcg (2,000 unit) capsule atorvastatin 40 mg tablet 40 mg PO DAILY cholesterol #90 tabs 01/22/23 Unknown Rx lisinopril 10 mg tablet 10 mg PO QDAY blood pressure #90 06/14/23 Unknown Rx tabs metformin 1,000 mg tablet 1,000 mg PO BID 01/21/24 Unknown History clopidogrel 75 mg tablet (Plavix) 75 mg PO DAILY #90 tabs 03/01/24 Unknown Rx metoprolol tartrate 25 mg tablet 25 mg PO BID heart rate/BP #180 03/01/24 Unknown Rx tabs terbinafine HCl 250 mg tablet 250 mg PO DAILY 03/02/24 Unknown History Allergy/AdvReac Type Severity Reaction Status Date / Time No Known Allergies Allergy Verified 03/02/24 09:19 Family History Father , Age 55 Asbestos exposure Cancer Mother , Age 71 Lung cancer Surgical History History of cardiac catheterization Stented coronary artery (03/2008) Social History Smoking Status: Current some day smoker tobacco type: cigarettes how long ago did patient quit smokin months ago quit status: has quit before alcohol intake: current details: rarely substance use type: does not use caffeine: Yes Type: carbonated beverages Number of servings: 3 ROS Constitutional Constitutional: Denies anorexia, change in weight, chills or fever(s) Eyes Eyes: Denies blurry vision, change in vision or double vision ENT HEENT: Denies dysphagia, nasal congestion, nasal discharge or sore throat Cardiovascular Cardiovascular: Denies chest pain, claudication or palpitations Respiratory/Chest Respiratory/Chest: Denies cough, shortness of breath at rest or wheezing Gastrointestinal Gastrointestinal: Denies abdominal pain, constipation, diarrhea, nausea or vomiting Genitourinary Genitourinary: Denies dysuria, hematuria or urinary urgency Musculoskeletal Musculoskeletal: Denies joint pain, joint stiffness or joint swelling Integumentary Integumentary: Denies lesions, pruritus or rash Neurologic Neurologic: Denies dizziness, numbness or seizures Psychiatric Psychiatric: Denies anxiety or depression Endocrine Endocrinology: Denies cold intolerance, heat intolerance, polydipsia or polyuria Hematologic/Lymphatic Hematologic/Lymphatic: Denies easy bleeding or easy bruising Vital Signs Vital Signs Vital Signs: 03/02/24 09:12 Temperature 97.5 F L Temperature Source Temporal Pulse Rate 77 Respiratory Rate 18 Blood Pressure 145/80 H Blood Pressure Mean 101 Blood Pressure Source Monitor Blood Pressure Position Semi-Fowlers Blood Pressure Location Left Arm Oxygen Delivery Method Room Air Weight Weight: 99.337 kg Body Mass Index (BMI) 29.7 Physical Exam Const alert, oriented x3 and no apparent distress General Appearance: cooperative HEENT normocephalic Eyes General Eye: normal appearance of both eyes Neck General: normal visual inspection Lymph Lymphatic: no lymphadenopathy noted and no lymphedema noted Resp normal respiratory effort Cardio regular rate and regular rhythm Extremity no calf tenderness Extremity Narrative: Right lower extremity: Vascular: DP and PT pulses palpable. CFT is less than 4 seconds to digits. Normal temperature gradient. There is pedal hair growth noted. Neurologic: Gross sensation intact. Protective sensation diminished secondary to diabetic peripheral polyneuropathy. Musculoskeletal: Muscle strength 5 of 5 age-appropriate. There is decreased range of motion of the ankle joint dorsiflexion with the knee extended without pain or crepitus. There is a contracture of the second and third digit noted at the proximal interphalangeal joint consistent with hammertoe deformity. No pain to palpation about ulcerative site distal third digit. Contracture of the second and third digit noted to be flexible. Decreased range of motion of the first metatarsophalangeal joint without pain or crepitus. Dermatologic: There is an ulceration at the distal tuft of the third digit secondary to hammertoe deformity. There is localized erythema about the ulcerative site and distal aspect of the third digit. No purulent drainage, no malodor no palpable fluctuance/bogginess noted. No lymphangitic streaking. There is some edema of the distal third digit. Left lower extremity: Vascular: DP and PT pulses palpable. CFT is less than 4 seconds to digits. Normal temperature gradient. There is pedal hair growth noted. Neurologic: Gross sensation intact. Protective sensation diminished secondary to diabetic peripheral polyneuropathy. Musculoskeletal: Muscle strength 5 of 5 age-appropriate. There is decreased range of motion of the ankle joint in dorsiflexion with the knee extended without pain or crepitus. Decreased range of motion of the first metatarsophalangeal joint achieving less than 30 degrees consistent with hallux limitus without pain or crepitus. No pain to palpation about hallux interphalangeal joint at site of hyperkeratosis. No pain to palpation of calf. Dermatologic: There is hyperkeratosis/preulcerative lesion underlying the plantar medial aspect of the hallucal interphalangeal joint. No open ulceration postdebridement of hyperkeratosis. Remainder of skin otherwise unremarkable. Skin no rashes or lesions noted and skin turgor normal Neuro moves all extremities Debridement Note Debridement Note Wound debrided: Third digit right foot Laterality: Right Wound Grade/Stage: Dobbs stage I Type of Debridement: Excisional debridement Anesthesia Used: 5% Lidocaine Gel Depth: Down to and including healthy tissue and in the subcutaneous layer Percentage of wound debrided: 100 Instrument Used: #15 blade Tissue Removed: Fibrous, devitalized subcutaneous, biofilm, slough Severity: Fat Layer Exposed Amount of bleeding with debridement: Mild Bleeding Controlled with: Compression and gauze Patient tolerated procedure: Patient tolerated procedure well Post-Debridement Measurements and Additional Note: Post-Debridement Measurements/Treatment - Nurse 1 - General Ulcer Assessment Start: 03/02/24 09:11 Freq: Status: Active Protocol: TOMMIE Activity Type Activity Date Activity User E-sign Co-sign Detail Recorded Client Recorded Date Recorded By Document 03/02/24 09:12 KW [id number] 03/02/24 09:18 KW 03/02/24 09:12 - Today's Visit Information Type of service Initial Visit Arrival Mode Ambulatory Patient Identification Verified (Name & Yes ) Height and Weight Height 6 ft Weight 99.337 kg Weight in Pounds 219.0 lbs Weight Measurement Method Estimated by Patient Body Mass Index (BMI) 29.7 BMI Classification Overweight BSA - Shyann 2.21 Vital Signs Temperature (97.8 F-99.1 F) 97.5 F L Temperature Source Temporal Pulse Rate (60-100) 77 Pulse Location Monitor Respiratory Rate (12-18) 18 Respiratory rate source Observation Oxygen Delivery Method Room Air Blood Pressure (90/60-120/80) 145/80 H Blood Pressure Mean 101 Source Monitor Position Semi-Fowlers Blood Pressure Location Left Arm History Since Last Visit- (Skip if this is Patient's initial visit) Have you changed medications since your No last visit? Any new allergies or adverse reactions No Had a fall/change in ADL's that may No increase risk of falls Signs or symptoms of abuse and/or No neglect since last visit Have you been in the hospital since your No last visit? Has dressing in place as prescribed Yes Has compression in place as prescribed N/A Has offloadiing in place as prescribed N/A Experienced any changes in pain level or No management Left Footwear Diabetic Shoe Right Footwear Diabetic Shoe Pain Scale: 0-10 Numeric Is Patient Pain Free? Yes Lower Extremity Assessment/ Foot Assessment/ Toe Nail Assessment Left -Posterior Tibial Doppler Multiphasic -Dorsalis Pedis Doppler Multiphasic -Hair Growth on Legs No -Hair Growth on Toes No -Temperature of Extremity Cool -Thick Yes -Discolored Yes -Deformed No -Improper Length & Hygeine No Right -Posterior Tibial Palpable Yes -Posterior Tibial Doppler Multiphasic -Dorsalis Pedis Palpable Yes -Dorsalis Pedis Doppler Multiphasic -Hair Growth on Legs No -Hair Growth on Toes No -Temperature of Extremity Cool -Thick Yes -Discolored Yes -Deformed No -Improper Length & Hygeine No Communication Assessment Preferred language Korean Fisher Required No Able to Read Yes Able to Write Yes Communication Tools None Caregiver Communication Skills No Impairment Impairment Right Hearing Abillity Normal Left Hearing Abillity Normal Visual Assistive Devices Glasses Teaching Assessment Preferences Verbal,Written, Demonstration Barriers to Learning None Readiness To Learn Excellent Willingness to Engage in Self Management High Activies Readiness to Engage in Self Management High Activities Anxiety Level Calm Cooperation Cooperative Perception Coherent Interest in Health Problem Asks Questions Education Importance Acknowledges Need Does Patient Smoke tobacco or other Yes substances Smoking Status Current some day smoker Is Patient Diabetic Yes Functional Assessment Recent Decline in Ability to Perform Denies Any Declines 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 to contact place of synagogue No WC - Nurse 1 - General Ulcer Measurement Start: 03/02/24 09:11 Freq: Status: Active Protocol: Activity Type Activity Date Activity User E-sign Co-sign Detail Recorded Client Recorded Date Recorded By Document 03/02/24 09:12 DOTTY [id number] 03/02/24 09:18 KW 03/02/24 09:12 Wound Center Nurse 1 2 RT 3RD TOE -Current Size (cm) - Length 0.9 -Current Size (cm) - Width 1.1 -Current Size (cm) - Depth 0.2 -Total Square Cm 0.99 -Date of Last Picture (Recall this 03/02/24 field) -Exudate Amt Small -Exudate Type Serosanguineous -Wound Margin Distinct, Outline Attached -Granulation Amt Large (67-100%) -Granulation Quality [place] -Texture (Leonor-wound Skin Appearance) Assessed,Callus -Moisture (Leonor-wound Skin Appearance) Assessed -Color (Leonor-wound Skin Appearance) Assessed -Temperature (Leonor-wound Skin No Abnormality Appearance) (Pt Warm) -Tenderness on Palpation (Leonor-wound No Skin Appearance) -Ulcer Cleansing Rinsed/ Irrigated with Saline -Foul Odor after Cleansing No -Anesthetic Used 5% Lidocaine Gel WC - Nurse 2 - General Ulcer CM Notes Start: 03/02/24 09:11 Freq: Status: Active Protocol: Activity Type Activity Date Activity User E-sign Co-sign Detail Recorded Client Recorded Date Recorded By Document 03/02/24 09:58 [facility] [id number] 03/02/24 10:12 [facility] 03/02/24 09:58 Wound Center Nurse 2 -Time 09:59 -Correct Patient Yes -Correct Side, Site, Position Yes -Correct Procedure Yes -Procedure Performed Yes -Type of Procedure Debridement -Clinical Debridement Subcutaneous -Tissue Removed Subcutaneous -Post Debridement (cm) - Length 1 -Post Debridement (cm) - Width 1 -Post Debridement (cm) - Depth 0.2 -Total Square (Post) (cm) 1 -Area of Debridement (cm) - Length 1 -Area of Debridement (cm) - Width 1 -Total Square (Area) (cm) 1 -Tunneling No -Undermining/Tunneling No -Circular Undermining No -Wound/Ulcer Outcome Not Healed -Ulcer Cleansing Rinsed/ Irrigated with Saline -Foul Odor after Cleansing No -Bioengineered Tissue No -Bleeding Controlled with Pressure -Treatment Response Procedure Tolerated Well -Debridement - Subq, 1st 20sq cm Yes Pain Scale: 0-10 Numeric Is Patient Pain Free? Yes MARY - Nurse 3 - General Ulcer D/C NN Start: 03/02/24 09:11 Freq: Status: Active Protocol: Activity Type Activity Date Activity User E-sign Co-sign Detail Recorded Client Recorded Date Recorded By Document 03/02/24 10:16 DL [id number] 03/02/24 10:18 DL 03/02/24 10:16 Wound Care Center Nurse 3 2 RT 3RD TOE -Ulcer Cleansing Rinsed/ Irrigated with Saline -Foul Odor after Cleansing No -Primary Dressing Applied Promogran Abby Matter -Primary Dressing Covered/Secured with Dry Gauze, Secured with Tape -Promogran Abby Matter 1 Pain Scale: 0-10 Numeric Is Patient Pain Free? Yes WC - Visit Discharge Discharge Condition Stable Ambulatory Status Ambulatory Transportation Private Auto Assessment/Plan Assessment/Plan (1) Non-pressure chronic ulcer of other part of right foot with fat layer exposed: CODE(S): L97.512 - Non-pressure chronic ulcer of other part of right foot with fat layer exposed (2) Cellulitis of right toe: CODE(S): L03.031 - Cellulitis of right toe (3) Acquired hammertoe of right foot: CODE(S): M20.41 - Other hammer toe(s) (acquired), right foot (4) Type 2 diabetes mellitus without complications: CODE(S): E11.9 - Type 2 diabetes mellitus without complications (5) Type 2 diabetes mellitus with foot ulcer: CODE(S): E11.621 - Type 2 diabetes mellitus with foot ulcer; L97.509 - Non-pressure chronic ulcer of other part of unspecified foot with unspecified severity (6) Other hereditary and idiopathic neuropathies: CODE(S): G60.8 - Other hereditary and idiopathic neuropathies (7) Hallux limitus of right foot: CODE(S): M20.5X1 - Other deformities of toe(s) (acquired), right foot (8) Hallux limitus of left foot: CODE(S): M20.5X2 - Other deformities of toe(s) (acquired), left foot (9) Nicotine dependence: CODE(S): F17.200 - Nicotine dependence, unspecified, uncomplicated PLAN: Plan Patient seen and evaluated Predebridement measurement third digit right foot 0.9 cm x 0.9 cm x 0.2 cm Ulceration underwent debridement as noted in the clinical panel above. Postdebridement measurement 1.0 cm x 1.0 cm x 0.2 cm. Cultures were obtained of the third digit, awaiting results. Site was dressed with Abby and dry sterile dressing. He is instructed to change dressing daily. Recommended offloading via crest padding for the third digit. Discussed with the patient his hammertoe deformity is creating the wound as he ambulates. Discussed conservative care of offloading versus surgical intervention of flexor tenotomy. Patient does not want to miss work and cannot work with open toed shoe/surgical shoe and thus elects for conservative management at this time. He has previous ulceration of the plantar medial aspect of the left hallucal IPJ consistent with spinners callus secondary to hallux limitus right greater than left. Recommend continued offloading with power step inserts with the Aldridge's extension to bilateral foot. However he is not wearing inserts today and presents in 'Hey-Dude' shoes. Discussed continued importance of offloading of bilateral first MTPJ via the Aldridge's extension on the orthotic insert otherwise he will run risk of reulceration at the left hallux. Hyperkeratosis about the left hallux was debrided today with no underlying wound. Also discussed surgical intervention of Leo osteotomy base of the left hallux versus IPJ arthroplasty. He still elects for conservative management of the left foot at this time. Discussed signs and symptoms of infection. Discussed if he notices redness progressing from the toe to the dorsal foot, purulent drainage from his wound site, increasing foul odor or darkening of tissue, or if he develops fever greater than 101 degree accompanied by nausea, vomiting, chills that these are signs of a progressing infection and he should report to the ED to receive IV antibiotics and further evaluation. He is understanding of this today. Discussed adequate protein intake to aid in wound healing. Discussed Wang supplementation which was recommended. Discussed importance of daily foot checks. Patient states that he is unable to check his own feet and his vision is starting to become poor. I discussed incorporating his to assist in these daily checks. Discussed his diabetic status and recent A1c of 6.7%. Discussed obtaining A1c is close to 6% as possible. Discussed proper diabetic diet to aid in overall health and wound healing. Discussed risks and complications of diabetes. He is understanding of our discussion and the need for continued surveillance to ensure no cuts or wounds or pressure sites to the foot. He is understanding to call the office sooner if he notices any of these. Discussed on 03/02/2024 the need for smoking cessation to aid in wound healing and for his overall health benefit. Discussed benefits from stopping smoking. Discussed risks with continued smoking including decreased blood flow to lower extremities and vital organs and overall impairment in healing and organ systems. Smoking cessation was offered. Patient currently declines at this time. Discussed if he wishes to pursue further to obtain aids to quit smoking to speak with his PCP. He states he is understanding of this. A total of 3 minutes was spent on discussion ([id number]). Despite prior discussion still continues to smoke. The following work up and care recommendations were made: Dressing: Abby, dry sterile dressing. Change dressing daily Wash: Soap and water Tissue growth optimization: Abby Offload: Power step inserts with Aldridge's extension to bilateral foot. Recommended crest padding offloading for third digit of right foot Vascular: DP and PT pulses palpable with adequate capillary fill time. Vascular status not impacting healing. Edema: None Infection: Localized cellulitis to distal third digit, awaiting cultures Pain: No pain to palpation. 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 Host factors: Neuropathy, DM type II, nicotine dependence, bilateral hallux limitus, PVD, hammertoe deformity third digit right foot I answered all the patient's questions. To return to the wound healing center in 1 week or call sooner if the patient has any questions or concerns.
--- NOTE | 2024-03-03 14:30 | NURSING ---
script called into [facility] in [place] - doxycycline 100mg tab bid; x14 days, 28 tabs, no refills
[2024-03-09 09:30] VITALS: BP 140/80; PULSE 76; RESP 18; TEMP 37.4; BMI 29.7
--- NOTE | 2024-03-09 12:13 | PN.PCM_ITS ---
History of Present Illness Date of Service: 03/09/24 Chief Complaint: Left hallux wound History of Wound: Patient is a 63-year-old male who reports of new blister to the distal third digit of the right foot roughly 3 weeks duration. 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 States applying Neosporin and dry dressing daily. Patient reports recent A1c 6.7%. Denies taking medication for diabetes and does not check blood sugar. Does continue to smoke. Currently on Plavix, statin, metformin, lisinopril, and metoprolol. He states that the toe did turn a little red but denies anything of drainage from the toe. Denies having pain with the toe but states that he has neuropathy. Was seen in the wound care center in 2023 for a plantar left hallux ulceration however does not consistently wear his offloading insert and the site is developing hyperkeratosis again. Denies N/V/F/chills. Denies further complaints. Subjective Subjective This is a 63-year-old male who continues to follow with the wound care center for third digit distal tuft ulceration secondary to hammertoe deformity. He reports that he did pickle pumper the oral antibiotic and had begun taking that over the weekend. Denies trauma. Denies constitutional symptoms. Denies further complaints. Objective Data Objective Data Vital Signs: Vital Signs Temp Pulse Resp BP O2 Del Method 99.3 F H 76 18 140/80 H Room Air 03/09/24 09:30 03/09/24 09:30 03/09/24 09:30 03/09/24 09:30 03/02/24 09:12 Oxygen Delivery Method Room Air Weight: 99.337 kg Body Mass Index (BMI) 29.7 Lab / Micro Data Micro: Microbiology 03/02/24 10:05 Wound - Right Foot Gram Stain - Final 03/02/24 10:05 Wound - Right Foot Wound Culture - Final Streptococcus agalactiae (B) 03/02/24 10:05 Wound - Right Foot Anaerobic Culture - Final No anaerobic bacteria isolated. Physical Exam Const alert, oriented x3 and no apparent distress General Appearance: cooperative HEENT normocephalic Eyes General Eye: normal appearance of both eyes Neck General: normal visual inspection Lymph Lymphatic: no lymphadenopathy noted and no lymphedema noted Resp normal respiratory effort Cardio regular rate and regular rhythm Extremity no calf tenderness Extremity Narrative: Right lower extremity: Vascular: DP and PT pulses palpable. CFT is less than 4 seconds to digits. Normal temperature gradient. There is pedal hair growth noted. Neurologic: Gross sensation intact. Protective sensation diminished secondary to diabetic peripheral polyneuropathy. Musculoskeletal: Muscle strength 5 of 5 age-appropriate. There is decreased range of motion of the ankle joint dorsiflexion with the knee extended without pain or crepitus. There is a contracture of the second and third digit noted at the proximal interphalangeal joint consistent with hammertoe deformity. No pain to palpation about ulcerative site distal third digit. Contracture of the second and third digit noted to be flexible. Decreased range of motion of the first metatarsophalangeal joint without pain or crepitus. Dermatologic: There is an ulceration at the distal tuft of the third digit secondary to hammertoe deformity. There is localized erythema about the ulcerative site and distal aspect of the third digit. No purulent drainage, no malodor no palpable fluctuance/bogginess noted. No lymphangitic streaking. There is some edema of the distal third digit. Left lower extremity: Vascular: DP and PT pulses palpable. CFT is less than 4 seconds to digits. Normal temperature gradient. There is pedal hair growth noted. Neurologic: Gross sensation intact. Protective sensation diminished secondary to diabetic peripheral polyneuropathy. Musculoskeletal: Muscle strength 5 of 5 age-appropriate. There is decreased range of motion of the ankle joint in dorsiflexion with the knee extended without pain or crepitus. Decreased range of motion of the first metatarsophalangeal joint achieving less than 30 degrees consistent with hallux limitus without pain or crepitus. No pain to palpation about hallux interphalangeal joint at site of hyperkeratosis. No pain to palpation of calf. Dermatologic: There is hyperkeratosis/preulcerative lesion underlying the plantar medial aspect of the hallucal interphalangeal joint. No open ulceration postdebridement of hyperkeratosis. Remainder of skin otherwise unremarkable. Skin no rashes or lesions noted and skin turgor normal Neuro moves all extremities Debridement Note Debridement Note Wound debrided: Third digit distal tuft right foot Laterality: Right Wound Grade/Stage: Dobbs stage I Type of Debridement: Excisional debridement Anesthesia Used: 5% Lidocaine Gel Depth: Down to and including healthy tissue and in the subcutaneous layer Percentage of wound debrided: 100 Instrument Used: 3mm curette and #15 blade Tissue Removed: Fibrous, devitalized subcutaneous, biofilm, slough Severity: Fat Layer Exposed Amount of bleeding with debridement: Mild Bleeding Controlled with: Compression and gauze Patient tolerated procedure: Patient tolerated procedure well Post-Debridement Measurements and Additional Note: Post-Debridement Measurements/Treatment - Nurse 1 - General Ulcer Assessment Start: 03/02/24 09:11 Freq: Status: Active Protocol: TOMMIE Activity Type Activity Date Activity User E-sign Co-sign Detail Recorded Client Recorded Date Recorded By Document 03/02/24 09:12 KW [id number] 03/02/24 09:18 KW Document 03/09/24 09:30 DL [id number] 03/09/24 09:36 DL 03/02/24 03/09/24 09:12 09:30 - Today's Visit Information Type of service Initial Visit Follow-up Visit (Physician/CAGE CLERK ) Arrival Mode Ambulatory Ambulatory Transfer Assistance None Patient Identification Verified (Name & Yes Yes ) Patient Requires Transmission-Based No Precautions Height and Weight Height 6 ft Weight 99.337 kg Weight in Pounds 219.0 lbs Weight Measurement Method Estimated by Patient Body Mass Index (BMI) 29.7 29.7 BMI Classification Overweight Overweight BSA - Shyann 2.21 Vital Signs Temperature (97.8 F-99.1 F) 97.5 F L 99.3 F H Temperature Source Temporal Temporal Pulse Rate (60-100) 77 76 Pulse Location Monitor Monitor Respiratory Rate (12-18) 18 18 Respiratory rate source Observation Observation Oxygen Delivery Method Room Air Blood Pressure (90/60-120/80) 145/80 H 140/80 H Blood Pressure Mean (mm Hg) 101 100 Source Monitor Monitor Position Semi-Fowlers Blood Pressure Location Left Arm History Since Last Visit- (Skip if this is Patient's initial visit) Have you changed medications since your No No last visit? Any new allergies or adverse reactions No No Had a fall/change in ADL's that may No No increase risk of falls Signs or symptoms of abuse and/or No No neglect since last visit Have you been in the hospital since your No No last visit? Has dressing in place as prescribed Yes Yes Has compression in place as prescribed N/A N/A Has offloadiing in place as prescribed N/A N/A Experienced any changes in pain level or No Yes management Left Footwear Diabetic Shoe Right Footwear Diabetic Shoe Pain Scale: 0-10 Numeric Is Patient Pain Free? Yes Yes Lower Extremity Assessment/ Foot Assessment/ Toe Nail Assessment Left -Posterior Tibial Doppler Multiphasic -Dorsalis Pedis Doppler Multiphasic -Hair Growth on Legs No -Hair Growth on Toes No -Temperature of Extremity Cool -Thick Yes -Discolored Yes -Deformed No -Improper Length & Hygeine No Right -Posterior Tibial Palpable Yes -Posterior Tibial Doppler Multiphasic -Dorsalis Pedis Palpable Yes -Dorsalis Pedis Doppler Multiphasic -Hair Growth on Legs No -Hair Growth on Toes No -Temperature of Extremity Cool -Thick Yes -Discolored Yes -Deformed No -Improper Length & Hygeine No Communication Assessment Preferred language [place] 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 No Able to Read Yes Able to Write Yes Communication Tools None Caregiver Communication Skills No Impairment Impairment Right Hearing Abillity Normal Left Hearing Abillity Normal Visual Assistive Devices Glasses Teaching Assessment Preferences Verbal,Written, Demonstration Barriers to Learning None Readiness To Learn Excellent Willingness to Engage in Self Management High Activies Readiness to Engage in Self Management High Activities Anxiety Level Calm Cooperation Cooperative Perception Coherent Interest in Health Problem Asks Questions Education Importance Acknowledges Need Does Patient Smoke tobacco or other Yes substances Smoking Status Current some day smoker Is Patient Diabetic Yes Functional Assessment Recent Decline in Ability to Perform Denies Any Declines 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 Heavy Equipment Operator to contact place of latter-day No WC - Nurse 1 - General Ulcer Measurement Start: 03/02/24 09:11 Freq: Status: Active Protocol: Activity Type Activity Date Activity User E-sign Co-sign Detail Recorded Client Recorded Date Recorded By Document 03/02/24 09:12 KW [id number] 03/02/24 09:18 KW Document 03/09/24 09:30 DL [id number] 03/09/24 09:36 DL 03/02/24 03/09/24 09:12 09:30 Wound Center Nurse 1 2 RT 3RD TOE -Current Size (cm) - Length 0.9 0.7 -Current Size (cm) - Width 1.1 0.6 -Current Size (cm) - Depth 0.2 0.4 -Total Square Cm 0.99 0.42 -Date of Last Picture (Recall this 03/02/24 field) -Photo Taken Yes -Exudate Amt Small Medium -Exudate Type Serosanguineous Serosanguineous -Wound Margin Distinct, Distinct, Outline Outline Attached Attached -Granulation Amt Large (67-100%) None Present (0 %) -Granulation Quality [place] -Necrosis Amt Small (1-33%) -Necrotic Tissue Type Adherent Slough -Structure Exposed N/A -Texture (Leonor-wound Skin Appearance) Assessed,Callus Localized Edema ,Scarring -Moisture (Leonor-wound Skin Appearance) Assessed Dry/Scaly -Color (Leonor-wound Skin Appearance) Assessed No Abnormality -Temperature (Leonor-wound Skin No Abnormality No Abnormality Appearance) (Pt Warm) (Pt Warm) -Tenderness on Palpation (Leonor-wound No Skin Appearance) -Ulcer Cleansing Rinsed/ Soap and Water Irrigated with Saline -Foul Odor after Cleansing No No -Anesthetic Used 5% Lidocaine 5% Lidocaine Gel Gel WC - Nurse 2 - General Ulcer CM Notes Start: 03/02/24 09:11 Freq: Status: Active Protocol: Activity Type Activity Date Activity User E-sign Co-sign Detail Recorded Client Recorded Date Recorded By Document 03/02/24 09:58 [facility] [id number] 03/02/24 10:12 [facility] Document 03/09/24 10:00 [facility] [id number] 03/09/24 10:07 [facility] 03/02/24 03/09/24 09:58 10:00 Wound Center Nurse 2 2 RT 3RD TOE -Time 09:59 10:00 -Correct Patient Yes Yes -Correct Side, Site, Position Yes Yes -Correct Procedure Yes Yes -Procedure Performed Yes Yes -Type of Procedure Debridement Debridement -Clinical Debridement Subcutaneous Subcutaneous -Tissue Removed Subcutaneous Subcutaneous -Post Debridement (cm) - Length 1 0.7 -Post Debridement (cm) - Width 1 0.8 -Post Debridement (cm) - Depth 0.2 0.2 -Total Square (Post) (cm) 1 0.56 -Area of Debridement (cm) - Length 1 0.7 -Area of Debridement (cm) - Width 1 0.8 -Total Square (Area) (cm) 1 0.56 -Tunneling No No -Undermining/Tunneling No No -Circular Undermining No No -Wound/Ulcer Outcome Not Healed Not Healed -Ulcer Cleansing Rinsed/ Rinsed/ Irrigated with Irrigated with Saline Saline -Foul Odor after Cleansing No No -Bioengineered Tissue No No -Bleeding Controlled with Pressure Pressure -Treatment Response Procedure Procedure Tolerated Well Tolerated Well -Debridement - Subq, 1st 20sq cm Yes Yes Pain Scale: 0-10 Numeric Is Patient Pain Free? Yes Yes - Nurse 3 - General Ulcer D/C NN Start: 03/02/24 09:11 Freq: Status: Active Protocol: Activity Type Activity Date Activity User E-sign Co-sign Detail Recorded Client Recorded Date Recorded By Document 03/02/24 10:16 DL [id number] 03/02/24 10:18 DL Document 03/09/24 10:18 KW [id number] 03/09/24 10:18 KW 03/02/24 03/09/24 10:16 10:18 Wound Care Center Nurse 3 2 RT 3RD TOE -Ulcer Cleansing Rinsed/ Irrigated with Saline -Foul Odor after Cleansing No -Primary Dressing Applied Promogran Promogran Abby Matter Abby Matter -Primary Dressing Covered/Secured with Dry Gauze, Dry Gauze, Secured with Secured with Tape Tape -Promogran Abby Matter 1 1 Pain Scale: 0-10 Numeric Is Patient Pain Free? Yes Yes - Visit Discharge Discharge Condition Stable Stable Ambulatory Status Ambulatory Ambulatory Transportation Private Auto Private Auto Medication Reconcilliation completed & No provided to patient/care provider Clinical Summary of Care Provided Yes Assessment/Plan Assessment/Plan (1) Non-pressure chronic ulcer of other part of right foot with fat layer exposed: CODE(S): L97.512 - Non-pressure chronic ulcer of other part of right foot with fat layer exposed (2) Cellulitis of right toe: CODE(S): L03.031 - Cellulitis of right toe (3) Acquired hammertoe of right foot: CODE(S): M20.41 - Other hammer toe(s) (acquired), right foot (4) Type 2 diabetes mellitus without complications: CODE(S): E11.9 - Type 2 diabetes mellitus without complications (5) Type 2 diabetes mellitus with foot ulcer: CODE(S): E11.621 - Type 2 diabetes mellitus with foot ulcer; L97.509 - Non-pressure chronic ulcer of other part of unspecified foot with unspecified severity (6) Other hereditary and idiopathic neuropathies: CODE(S): G60.8 - Other hereditary and idiopathic neuropathies (7) Hallux limitus of right foot: CODE(S): M20.5X1 - Other deformities of toe(s) (acquired), right foot (8) Hallux limitus of left foot: CODE(S): M20.5X2 - Other deformities of toe(s) (acquired), left foot (9) Nicotine dependence: CODE(S): F17.200 - Nicotine dependence, unspecified, uncomplicated PLAN: Plan Patient seen and evaluated Predebridement measurement third digit right foot 0.6 cm x 0.7 cm x 0.2 cm Ulceration underwent debridement as noted in the clinical panel above. Postdebridement measurement 0.7 cm x 0.8 cm x 0.2 cm. Cultures were obtained of the third digit demonstrating Strep Group B. He was placed on oral doxycycline 100 mg twice daily x 14 days. Currently taking oral antibiotic. Site was dressed with Abby and dry sterile dressing. He is instructed to change dressing daily. Recommended offloading via crest padding for the third digit, which he has yet to obtain. Ulceration did demonstrate reduction in size today versus previous visit. He did undergo Radiograph of the foot demonstrating no acute osseous pathology. Discussed with the patient his hammertoe deformity is creating the wound as he ambulates. Discussed conservative care of offloading versus surgical intervention of flexor tenotomy. Patient continues to state he does not want to miss work and cannot work with open toed shoe/surgical shoe and thus continues to elect for conservative management at this time. He has previous ulceration of the plantar medial aspect of the left hallucal IPJ consistent with spinners callus secondary to hallux limitus right greater than left. Recommend continued offloading with power step inserts with the Aldridge's extension to bilateral foot. However he is not wearing inserts at last visit and presents in 'Hey-Dude' shoes. Today in steel toe work boot. Discussed continued importance of offloading of bilateral first MTPJ via the Aldridge's extension on the orthotic insert otherwise he will run risk of reulceration at the left hallux. Hyperkeratosis about the left hallux was debrided today with no underlying wound. Also discussed surgical intervention of Leo osteotomy base of the left hallux versus IPJ arthroplasty. He still elects for conservative management of the left foot at this time. Discussed signs and symptoms of infection. Discussed if he notices redness progressing from the toe to the dorsal foot, purulent drainage from his wound site, increasing foul odor or darkening of tissue, or if he develops fever greater than 101 degree accompanied by nausea, vomiting, chills that these are signs of a progressing infection and he should report to the ED to receive IV antibiotics and further evaluation. He is understanding of this today. Discussed adequate protein intake to aid in wound healing. Discussed Wang supplementation which was recommended. Discussed importance of daily foot checks. Patient states that he is unable to check his own feet and his vision is starting to become poor. I discussed incorporating his to assist in these daily checks. Discussed his diabetic status and recent A1c of 6.7%. Discussed obtaining A1c is close to 6% as possible. Discussed proper diabetic diet to aid in overall health and wound healing. Discussed risks and complications of diabetes. He is understanding of our discussion and the need for continued surveillance to ensure no cuts or wounds or pressure sites to the foot. He is understanding to call the office sooner if he notices any of these. Discussed on 03/02/2024 the need for smoking cessation to aid in wound healing and for his overall health benefit. Discussed benefits from stopping smoking. Discussed risks with continued smoking including decreased blood flow to lower extremities and vital organs and overall impairment in healing and organ systems. Smoking cessation was offered. Patient currently declines at this time. Discussed if he wishes to pursue further to obtain aids to quit smoking to speak with his PCP. He states he is understanding of this. A total of 3 minutes was spent on discussion ([id number]). Despite prior discussion still continues to smoke. The following work up and care recommendations were made: Dressing: Abby, dry sterile dressing. Change dressing daily Wash: Soap and water Tissue growth optimization: Abby Offload: Power step inserts with Aldridge's extension to bilateral foot. Recommended crest padding offloading for third digit of right foot Vascular: DP and PT pulses palpable with adequate capillary fill time. Vascular status not impacting healing. Edema: None Infection: Localized cellulitis to distal third digit, culture demonstrates strep group B. Currently on oral antibiotic as above. Pain: No pain to palpation. 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 Host factors: Neuropathy, DM type II, nicotine dependence, bilateral hallux limitus, PVD, hammertoe deformity third digit right foot I answered all the patient's questions. To return to the wound healing center in 1 week or call sooner if the patient has any questions or concerns.
[2024-03-16 10:12] VITALS: BP 123/45; PULSE 75; RESP 18; TEMP 36; BMI 29.7
--- NOTE | 2024-03-16 12:10 | PN.PCM_ITS ---
History of Present Illness Date of Service: 03/16/24 Chief Complaint: Left hallux wound History of Wound: Patient is a 63-year-old male who reports of new blister to the distal third digit of the right foot roughly 3 weeks duration. 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 States applying Neosporin and dry dressing daily. Patient reports recent A1c 6.7%. Denies taking medication for diabetes and does not check blood sugar. Does continue to smoke. Currently on Plavix, statin, metformin, lisinopril, and metoprolol. He states that the toe did turn a little red but denies anything of drainage from the toe. Denies having pain with the toe but states that he has neuropathy. Was seen in the wound care center in 2023 for a plantar left hallux ulceration however does not consistently wear his offloading insert and the site is developing hyperkeratosis again. Denies N/V/F/chills. Denies further complaints. Subjective Subjective This is a 63-year-old male who continues to follow with the wound care center for third digit distal tuft ulceration secondary to hammertoe deformity. Continues taking oral antibiotic. Did obtain the crest pad for offloading of the third digit. However states toe is more swollen today after work. Denies trauma. Denies constitutional symptoms. Denies further complaints. Objective Data Objective Data Vital Signs: Vital Signs Temp Pulse Resp BP O2 Del Method 96.8 F L 75 18 123/45 H Room Air 03/16/24 10:12 03/16/24 10:12 03/16/24 10:12 03/16/24 10:12 03/02/24 09:12 Oxygen Delivery Method Room Air Weight: 99.337 kg Body Mass Index (BMI) 29.7 Lab / Micro Data Micro: Microbiology 03/02/24 10:05 Wound - Right Foot Gram Stain - Final 03/02/24 10:05 Wound - Right Foot Wound Culture - Final Streptococcus agalactiae (B) 03/02/24 10:05 Wound - Right Foot Anaerobic Culture - Final No anaerobic bacteria isolated. Physical Exam Const alert, oriented x3 and no apparent distress General Appearance: cooperative HEENT normocephalic Eyes General Eye: normal appearance of both eyes Neck General: normal visual inspection Lymph Lymphatic: no lymphadenopathy noted and no lymphedema noted Resp normal respiratory effort Cardio regular rate and regular rhythm Extremity no calf tenderness Extremity Narrative: Right lower extremity: Vascular: DP and PT pulses palpable. CFT is less than 4 seconds to digits. Normal temperature gradient. There is pedal hair growth noted. Neurologic: Gross sensation intact. Protective sensation diminished secondary to diabetic peripheral polyneuropathy. Musculoskeletal: Muscle strength 5 of 5 age-appropriate. There is decreased range of motion of the ankle joint dorsiflexion with the knee extended without pain or crepitus. There is a contracture of the second and third digit noted at the proximal interphalangeal joint consistent with hammertoe deformity. No pain to palpation about ulcerative site distal third digit. Contracture of the second and third digit noted to be flexible. Decreased range of motion of the first metatarsophalangeal joint without pain or crepitus. Dermatologic: There is an ulceration at the distal tuft of the third digit secondary to hammertoe deformity. There is localized erythema about the ulcerative site up to PIPJ of the third digit with edema. No purulent drainage, no malodor no palpable fluctuance/bogginess noted. No lymphangitic streaking. There is some edema of the distal third digit. Left lower extremity: Vascular: DP and PT pulses palpable. CFT is less than 4 seconds to digits. Normal temperature gradient. There is pedal hair growth noted. Neurologic: Gross sensation intact. Protective sensation diminished secondary to diabetic peripheral polyneuropathy. Musculoskeletal: Muscle strength 5 of 5 age-appropriate. There is decreased range of motion of the ankle joint in dorsiflexion with the knee extended without pain or crepitus. Decreased range of motion of the first metatarsophalangeal joint achieving less than 30 degrees consistent with hallux limitus without pain or crepitus. No pain to palpation about hallux interphalangeal joint at site of hyperkeratosis. No pain to palpation of calf. Dermatologic: There is hyperkeratosis/preulcerative lesion underlying the plantar medial aspect of the hallucal interphalangeal joint. No open ulceration postdebridement of hyperkeratosis. Remainder of skin otherwise unremarkable. Skin no rashes or lesions noted and skin turgor normal Neuro moves all extremities Debridement Note Debridement Note Wound debrided: Distal tuft third digit right foot Laterality: Right Wound Grade/Stage: Dobbs stage I Type of Debridement: Excisional debridement Anesthesia Used: 5% Lidocaine Gel Depth: Down to and including healthy tissue and in the subcutaneous layer Percentage of wound debrided: 100 Instrument Used: #15 blade Tissue Removed: Fibrous, devitalized subcutaneous, biofilm, slough Severity: Fat Layer Exposed Amount of bleeding with debridement: Mild Bleeding Controlled with: Compression and gauze Patient tolerated procedure: Patient tolerated procedure well Post-Debridement Measurements and Additional Note: Post-Debridement Measurements/Treatment - Nurse 1 - General Ulcer Assessment Start: 03/02/24 09:11 Freq: Status: Active Protocol: TOMMIE Activity Type Activity Date Activity User E-sign Co-sign Detail Recorded Client Recorded Date Recorded By Document 03/02/24 09:12 KW [id number] 03/02/24 09:18 KW Document 03/09/24 09:30 DL [id number] 03/09/24 09:36 DL Document 03/16/24 10:12 RB [id number] 03/16/24 10:17 RB 03/02/24 03/09/24 03/16/24 09:12 09:30 10:12 - Today's Visit Information Type of service Initial Visit Follow-up Visit Follow-up Visit (Physician/SEROLOGIST (Physician/SEROLOGIST ) ) Arrival Mode Ambulatory Ambulatory Ambulatory Transfer Assistance None None Patient Identification Verified (Name & Yes Yes Yes ) Patient Requires Transmission-Based No No Precautions Height and Weight Height 6 ft Weight 99.337 kg Weight in Pounds 219.0 lbs Weight Measurement Method Estimated by Patient Body Mass Index (BMI) 29.7 29.7 29.7 BMI Classification Overweight Overweight Overweight BSA - Shyann 2.21 Vital Signs Temperature (97.8 F-99.1 F) 97.5 F L 99.3 F H 96.8 F L Temperature Source Temporal Temporal Temporal Pulse Rate (60-100) 77 76 75 Pulse Location Monitor Monitor Monitor Respiratory Rate (12-18) 18 18 18 Respiratory rate source Observation Observation Observation Oxygen Delivery Method Room Air Blood Pressure (90/60-120/80) 145/80 H 140/80 H 123/45 H Blood Pressure Mean (mm Hg) 101 100 71 Source Monitor Monitor Monitor Position Semi-Fowlers Semi-Fowlers Blood Pressure Location Left Arm Left Arm History Since Last Visit- (Skip if this is Patient's initial visit) Have you changed medications since your No No No last visit? Any new allergies or adverse reactions No No No Had a fall/change in ADL's that may No No No increase risk of falls Signs or symptoms of abuse and/or No No No neglect since last visit Have you been in the hospital since your No No No last visit? Has dressing in place as prescribed Yes Yes Yes Has compression in place as prescribed N/A N/A Yes Has offloadiing in place as prescribed N/A N/A Yes Experienced any changes in pain level or No Yes No management Left Footwear Diabetic Shoe Right Footwear Diabetic Shoe Pain Scale: 0-10 Numeric Is Patient Pain Free? Yes Yes Yes Lower Extremity Assessment/ Foot Assessment/ Toe Nail Assessment Left -Posterior Tibial Doppler Multiphasic -Dorsalis Pedis Doppler Multiphasic -Hair Growth on Legs No -Hair Growth on Toes No -Temperature of Extremity Cool -Thick Yes -Discolored Yes -Deformed No -Improper Length & Hygeine No Right -Posterior Tibial Palpable Yes -Posterior Tibial Doppler Multiphasic -Dorsalis Pedis Palpable Yes -Dorsalis Pedis Doppler Multiphasic -Hair Growth on Legs No -Hair Growth on Toes No -Temperature of Extremity Cool -Thick Yes -Discolored Yes -Deformed No -Improper Length & Hygeine No Communication Assessment Preferred language Malagasy Tailor Women'S Garment Alteration Required No Able to Read Yes Able to Write Yes Communication Tools None Caregiver Communication Skills No Impairment Impairment Right Hearing Abillity Normal Left Hearing Abillity Normal Visual Assistive Devices Glasses Teaching Assessment Preferences Verbal,Written, Demonstration Barriers to Learning None Readiness To Learn Excellent Willingness to Engage in Self Management High Activies Readiness to Engage in Self Management High Activities Anxiety Level Calm Cooperation Cooperative Perception Coherent Interest in Health Problem Asks Questions Education Importance Acknowledges Need Does Patient Smoke tobacco or other Yes substances Smoking Status Current some day smoker Is Patient Diabetic Yes Functional Assessment Recent Decline in Ability to Perform Denies Any Declines Culture/Oriental Orthodox/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 to contact place of mormonism No WC - Nurse 1 - General Ulcer Measurement Start: 03/02/24 09:11 Freq: Status: Active Protocol: Activity Type Activity Date Activity User E-sign Co-sign Detail Recorded Client Recorded Date Recorded By Document 03/02/24 09:12 KW [id number] 03/02/24 09:18 KW Document 03/09/24 09:30 DL [id number] 03/09/24 09:36 DL Document 03/16/24 10:12 RB [id number] 03/16/24 10:17 RB 03/02/24 03/09/24 03/16/24 09:12 09:30 10:12 Wound Center Nurse 1 2 RT 3RD TOE -Combined with other wound No -Current Size (cm) - Length 0.9 0.7 0.2 -Current Size (cm) - Width 1.1 0.6 0.2 -Current Size (cm) - Depth 0.2 0.4 1 -Total Square Cm 0.99 0.42 0.04 -Date of Last Picture (Recall this 03/02/24 field) -Photo Taken Yes Yes -Tunneling No -Undermining/Tunneling Yes -Undermining/Tunneling Starts (O'clock 12 ) -Undermining/Tunneling Ends (O'clock) 12 -Maximum Distance (cm) 1 -Circular Undermining Yes -Exudate Amt Small Medium Medium -Exudate Type Serosanguineous Serosanguineous Serosanguineous -Wound Margin Distinct, Distinct, Thickened Outline Outline Attached Attached -Granulation Amt Large (67-100%) None Present (0 Medium (34-66%) %) -Granulation Quality Marienthal Marienthal -Slough/Fibrin Yes -Necrosis Amt Small (1-33%) Medium (34-66%) -Necrotic Tissue Type Adherent Slough Adherent Slough -Structure Exposed N/A N/A -Texture (Leonor-wound Skin Appearance) Assessed,Callus Localized Edema Assessed,Callus ,Scarring -Moisture (Leonor-wound Skin Appearance) Assessed Dry/Scaly Assessed -Color (Leonor-wound Skin Appearance) Assessed No Abnormality Assessed -Temperature (Leonor-wound Skin No Abnormality No Abnormality No Abnormality Appearance) (Pt Warm) (Pt Warm) (Pt Warm) -Tenderness on Palpation (Leonor-wound No No Skin Appearance) -Ulcer Cleansing Rinsed/ Soap and Water Wound Cleanser Irrigated with Saline -Foul Odor after Cleansing No No No -Anesthetic Used 5% Lidocaine 5% Lidocaine 5% Lidocaine Gel Gel Gel WC - Nurse 2 - General Ulcer CM Notes Start: 03/02/24 09:11 Freq: Status: Active Protocol: Activity Type Activity Date Activity User E-sign Co-sign Detail Recorded Client Recorded Date Recorded By Document 03/02/24 09:58 [facility] [id number] 03/02/24 10:12 BM Document 03/09/24 10:00 BM [id number] 03/09/24 10:07 BM Document 03/16/24 10:25 [facility] [id number] 03/16/24 10:30 BMF 03/02/24 03/09/24 03/16/24 09:58 10:00 10:25 Wound Center Nurse 2 2 RT 3RD TOE -Time 09:59 10:00 10:25 -Correct Patient Yes Yes Yes -Correct Side, Site, Position Yes Yes Yes -Correct Procedure Yes Yes Yes -Procedure Performed Yes Yes Yes -Type of Procedure Debridement Debridement Debridement -Clinical Debridement Subcutaneous Subcutaneous Subcutaneous -Tissue Removed Subcutaneous Subcutaneous Subcutaneous -Post Debridement (cm) - Length 1 0.7 0.4 -Post Debridement (cm) - Width 1 0.8 0.3 -Post Debridement (cm) - Depth 0.2 0.2 0.1 -Total Square (Post) (cm) 1 0.56 0.12 -Area of Debridement (cm) - Length 1 0.7 0.4 -Area of Debridement (cm) - Width 1 0.8 0.3 -Total Square (Area) (cm) 1 0.56 0.12 -Tunneling No No No -Undermining/Tunneling No No No -Circular Undermining No No No -Wound/Ulcer Outcome Not Healed Not Healed Not Healed -Ulcer Cleansing Rinsed/ Rinsed/ Rinsed/ Irrigated with Irrigated with Irrigated with Saline Saline Saline -Foul Odor after Cleansing No No No -Bioengineered Tissue No No No -Bleeding Controlled with Pressure Pressure Pressure -Treatment Response Procedure Procedure Procedure Tolerated Well Tolerated Well Tolerated Well -Debridement - Subq, 1st 20sq cm Yes Yes Yes Pain Scale: 0-10 Numeric Is Patient Pain Free? Yes Yes Yes WC - Nurse 3 - General Ulcer D/C NN Start: 03/02/24 09:11 Freq: Status: Active Protocol: Activity Type Activity Date Activity User E-sign Co-sign Detail Recorded Client Recorded Date Recorded By Document 03/02/24 10:16 DL [id number] 03/02/24 10:18 DL Document 03/09/24 10:18 KW [id number] 03/09/24 10:18 KW Document 03/16/24 10:39 BM [id number] 03/16/24 10:40 BMF 03/02/24 03/09/24 03/16/24 10:16 10:18 10:39 Wound Care Center Nurse 3 2 RT 3RD TOE -Ulcer Cleansing Rinsed/ Rinsed/ Irrigated with Irrigated with Saline Saline -Foul Odor after Cleansing No No -Primary Dressing Applied Promogran Promogran Promogran Abby Matter Abby Matter Abby Matter -Primary Dressing Covered/Secured with Dry Gauze, Dry Gauze, Dry Gauze, Secured with Secured with Secured with Tape Tape Tape -Promogran Abby Matter 1 1 1 Treatment Response Procedure Tolerated Well Pain Scale: 0-10 Numeric Is Patient Pain Free? Yes Yes Yes WC - Visit Discharge Discharge Condition Stable Stable Stable Ambulatory Status Ambulatory Ambulatory Ambulatory Transportation Private Auto Private Auto Private Auto Medication Reconcilliation completed & No provided to patient/care provider Clinical Summary of Care Provided Yes Assessment/Plan Assessment/Plan (1) Non-pressure chronic ulcer of other part of right foot with fat layer exposed: CODE(S): L97.512 - Non-pressure chronic ulcer of other part of right foot with fat layer exposed (2) Cellulitis of right toe: CODE(S): L03.031 - Cellulitis of right toe (3) Acquired hammertoe of right foot: CODE(S): M20.41 - Other hammer toe(s) (acquired), right foot (4) Type 2 diabetes mellitus without complications: CODE(S): E11.9 - Type 2 diabetes mellitus without complications (5) Type 2 diabetes mellitus with foot ulcer: CODE(S): E11.621 - Type 2 diabetes mellitus with foot ulcer; L97.509 - Non-pressure chronic ulcer of other part of unspecified foot with unspecified severity (6) Other hereditary and idiopathic neuropathies: CODE(S): G60.8 - Other hereditary and idiopathic neuropathies (7) Hallux limitus of right foot: CODE(S): M20.5X1 - Other deformities of toe(s) (acquired), right foot (8) Hallux limitus of left foot: CODE(S): M20.5X2 - Other deformities of toe(s) (acquired), left foot (9) Nicotine dependence: CODE(S): F17.200 - Nicotine dependence, unspecified, uncomplicated PLAN: Plan Patient seen and evaluated Predebridement measurement third digit right foot 0.2 cm x 0.3 cm x 0.1 cm Ulceration underwent debridement as noted in the clinical panel above. Postdebridement measurement 0.3 cm x 0.4 cm x 0.1 cm. Cultures were obtained of the third digit demonstrating Strep Group B. He was placed on oral doxycycline 100 mg twice daily x 14 days. Currently taking oral antibiotic with stop date 03/19/24. Discussed taking to completion. He was started on today on additional oral antibiotic Augmentin 500mg BID x 14 days. Site was dressed with Abby and dry sterile dressing. He is instructed to change dressing daily. Recommended offloading via crest padding for the third digit, which he did obtain and has been wearing with improvement of ulceration size. Ulceration did demonstrate reduction in size today versus previous visit but has retained ertyhema and edema without purulence. He did undergo Radiograph 03/03/2024 of the foot demonstrating no acute osseous pathology. Discussed with the patient his hammertoe deformity is creating the wound as he ambulates. Discussed conservative care of offloading versus surgical intervention of flexor tenotomy. Patient continues to state he does not want to miss work and cannot work with open toed shoe/surgical shoe and thus continues to elect for conservative management at this time. I have discussed risk of infection of the digit and if oral antibiotics are not effective he may require distal Symes amputation of the third digit. Patient states he is aware of this and states if it comes to that then that is what I will do. I did again state the flexor tenotomy would be the more viable option at this time to allow for healing and improvement however continues to state he will wait as he does not want to miss work. He has previous ulceration of the plantar medial aspect of the left hallucal IPJ consistent with spinners callus secondary to hallux limitus right greater than left. Recommend continued offloading with power step inserts with the Aldridge's extension to bilateral foot. However he is not wearing inserts at last visit and presents in 'Hey-Dude' shoes. Today in steel toe work boot. Discussed continued importance of offloading of bilateral first MTPJ via the Aldridge's extension on the orthotic insert otherwise he will run risk of reulceration at the left hallux. Hyperkeratosis about the left hallux was debrided today with no underlying wound. Also discussed surgical intervention of Leo osteotomy base of the left hallux versus IPJ arthroplasty. He still elects for conservative management of the left foot at this time. Discussed signs and symptoms of infection. Discussed if he notices redness progressing from the toe to the dorsal foot, purulent drainage from his wound site, increasing foul odor or darkening of tissue, or if he develops fever greater than 101 degree accompanied by nausea, vomiting, chills that these are signs of a progressing infection and he should report to the ED to receive IV antibiotics and further evaluation. He is understanding of this today. Discussed adequate protein intake to aid in wound healing. Discussed Wang supplementation which was recommended. Discussed importance of daily foot checks. Patient states that he is unable to check his own feet and his vision is starting to become poor. I discussed incorporating his to assist in these daily checks. Discussed his diabetic status and recent A1c of 6.7%. Discussed obtaining A1c is close to 6% as possible. Discussed proper diabetic diet to aid in overall health and wound healing. Discussed risks and complications of diabetes. He is understanding of our discussion and the need for continued surveillance to ensure no cuts or wounds or pressure sites to the foot. He is understanding to call the office sooner if he notices any of these. Discussed on 03/02/2024 the need for smoking cessation to aid in wound healing and for his overall health benefit. Discussed benefits from stopping smoking. Discussed risks with continued smoking including decreased blood flow to lower extremities and vital organs and overall impairment in healing and organ systems. Smoking cessation was offered. Patient currently declines at this time. Discussed if he wishes to pursue further to obtain aids to quit smoking to speak with his PCP. He states he is understanding of this. A total of 3 minutes was spent on discussion ([id number]). Despite prior discussion still continues to smoke. The following work up and care recommendations were made: Dressing: Abby, dry sterile dressing. Change dressing daily Wash: Soap and water Tissue growth optimization: Abby Offload: Power step inserts with Aldridge's extension to bilateral foot. Recommended crest padding offloading for third digit of right foot Vascular: DP and PT pulses palpable with adequate capillary fill time. Vascular status not impacting healing. Edema: None Infection: Localized cellulitis to distal third digit, culture demonstrates strep group B. Currently on oral antibiotic as above. Pain: No pain to palpation. 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 Host factors: Neuropathy, DM type II, nicotine dependence, bilateral hallux limitus, PVD, hammertoe deformity third digit right foot I answered all the patient's questions. To return to the wound healing center in 1 week or call sooner if the patient has any questions or concerns.
--- NOTE | 2024-03-20 11:22 | WC ---
PHOTO 03/16/24 RIGHT THIRD TOE
== END 2024-03-17 23:59 | disposition home or self-care (01) ==
LOC: WC 09:45
PROVIDERS: PCP Nurse Practitioner Family; Referring Provider Nurse Practitioner Family; Visit Provider Student in an Organized Health Care Education/Training Program
DX: E11.621 Type 2 diabetes mellitus with foot ulcer (principal); L97.512 Non-pressure chronic ulcer of other part of right foot with fat layer exposed; S90.424A Blister (nonthermal), right lesser toe(s), initial encounter; X58.XXXA Exposure to other specified factors, initial encounter; G60.8 Other hereditary and idiopathic neuropathies; M20.41 Other hammer toe(s) (acquired), right foot; L03.031 Cellulitis of right toe; M20.5X1 Other deformities of toe(s) (acquired), right foot; M20.5X2 Other deformities of toe(s) (acquired), left foot; E78.00 Pure hypercholesterolemia, unspecified; I10 Essential (primary) hypertension; I25.10 Atherosclerotic heart disease of native coronary artery without angina pectoris; F17.210 Nicotine dependence, cigarettes, uncomplicated; I25.5 Ischemic cardiomyopathy; Z79.02 Long term (current) use of antithrombotics/antiplatelets; Z79.82 Long term (current) use of aspirin; Z79.84 Long term (current) use of oral hypoglycemic drugs; Z79.899 Other long term (current) drug therapy; Z86.73 Personal history of transient ischemic attack (TIA), and cerebral infarction without residual deficits; Z95.5 Presence of coronary angioplasty implant and graft; S91.301A Unspecified open wound, right foot, initial encounter
CPT/HCPCS: 11042; 87070; 87075; 87077; 87186; 87205; 99213; 99214; G0463

== ENCOUNTER 2024-04-13 09:45 | Outpatient (RCR) | payer OTHER, SELFPAY ==
[2024-03-18 02:41] VITALS: BP 123/45; PULSE 75; RESP 18; TEMP 36; BMI 29.7
[2024-03-23 10:05] VITALS: BP 134/69; PULSE 75; RESP 18; TEMP 36.1; BMI 29.7
--- NOTE | 2024-03-23 12:22 | PCM.WC.PN ---
History of Present Illness Date of Service: 03/23/24 Chief Complaint: Left hallux wound History of Wound: Patient is a 63-year-old male who reports of new blister to the distal third digit of the right foot roughly 3 weeks duration. 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 States applying Neosporin and dry dressing daily. Patient reports recent A1c 6.7%. Denies taking medication for diabetes and does not check blood sugar. Does continue to smoke. Currently on Plavix, statin, metformin, lisinopril, and metoprolol. He states that the toe did turn a little red but denies anything of drainage from the toe. Denies having pain with the toe but states that he has neuropathy. Was seen in the wound care center in 2023 for a plantar left hallux ulceration however does not consistently wear his offloading insert and the site is developing hyperkeratosis again. Denies N/V/F/chills. Denies further complaints. Subjective Subjective This is a 63-year-old male who continues to follow with the wound care center for third digit distal tuft ulceration secondary to hammertoe deformity. Continues taking oral antibiotic. Did obtain the crest pad for offloading of the third digit, however has not been wearing this as he feels he has 'too much swelling, and anything added to his foot in a shoe is uncomfortable'. Toe remains with some swelling. Denies trauma. Denies constitutional symptoms. Denies further complaints. Objective Data Objective Data Vital Signs: Vital Signs Temp Pulse Resp BP 97 F L 75 18 134/69 H 03/23/24 10:05 03/23/24 10:05 03/23/24 10:03/23/24 10:05 Weight: 99.337 kg Body Mass Index (BMI) 29.7 Physical Exam Const alert, oriented x3 and no apparent distress General Appearance: cooperative HEENT normocephalic Eyes General Eye: normal appearance of both eyes Neck General: normal visual inspection Lymph Lymphatic: no lymphadenopathy noted and no lymphedema noted Resp normal respiratory effort Cardio regular rate and regular rhythm Extremity no calf tenderness Extremity Narrative: Right lower extremity: Vascular: DP and PT pulses palpable. CFT is less than 4 seconds to digits. Normal temperature gradient. There is pedal hair growth noted. Neurologic: Gross sensation intact. Protective sensation diminished secondary to diabetic peripheral polyneuropathy. Musculoskeletal: Muscle strength 5 of 5 age-appropriate. There is decreased range of motion of the ankle joint dorsiflexion with the knee extended without pain or crepitus. There is a contracture of the second and third digit noted at the proximal interphalangeal joint consistent with hammertoe deformity. No pain to palpation about ulcerative site distal third digit. Contracture of the second and third digit noted to be flexible. Decreased range of motion of the first metatarsophalangeal joint without pain or crepitus. Dermatologic: There is an ulceration at the distal tuft of the third digit secondary to hammertoe deformity. There is localized erythema about the ulcerative site up to PIPJ of the third digit with edema, this is improving. No purulent drainage, no malodor no palpable fluctuance/bogginess noted. No lymphangitic streaking. Left lower extremity: Vascular: DP and PT pulses palpable. CFT is less than 4 seconds to digits. Normal temperature gradient. There is pedal hair growth noted. Neurologic: Gross sensation intact. Protective sensation diminished secondary to diabetic peripheral polyneuropathy. Musculoskeletal: Muscle strength 5 of 5 age-appropriate. There is decreased range of motion of the ankle joint in dorsiflexion with the knee extended without pain or crepitus. Decreased range of motion of the first metatarsophalangeal joint achieving less than 30 degrees consistent with hallux limitus without pain or crepitus. No pain to palpation about hallux interphalangeal joint at site of hyperkeratosis. No pain to palpation of calf. Dermatologic: There is hyperkeratosis/preulcerative lesion underlying the plantar medial aspect of the hallucal interphalangeal joint. No open ulceration postdebridement of hyperkeratosis. Remainder of skin otherwise unremarkable. Skin no rashes or lesions noted and skin turgor normal Neuro moves all extremities Debridement Note Debridement Note Wound debrided: Distal third digit right foot Laterality: Right Wound Grade/Stage: Dobbs stage I Type of Debridement: Excisional debridement Anesthesia Used: 5% Lidocaine Gel Depth: Down to and including healthy tissue and in the subcutaneous layer Percentage of wound debrided: 100 Instrument Used: #15 blade Tissue Removed: Fibrous, devitalized subcutaneous, biofilm, slough Severity: Fat Layer Exposed Amount of bleeding with debridement: Mild Bleeding Controlled with: Compression and gauze Patient tolerated procedure: Patient tolerated procedure well Post-Debridement Measurements and Additional Note: Post-Debridement Measurements/Treatment MARY - Nurse 1 - General Ulcer Assessment Start: 03/23/24 10:05 Freq: Status: Active Protocol: TOMMIE Activity Type Activity Date Activity User E-sign Co-sign Detail Recorded Client Recorded Date Recorded By Document 03/23/24 10:05 DL [id number] 03/23/24 10:14 DL 03/23/24 10:05 WC - Today's Visit Information Type of service Follow-up Visit (Physician/SPORTS MANAGEMENT INTERN ) Arrival Mode Ambulatory Transfer Assistance None Patient Identification Verified (Name & Yes ) Patient Requires Transmission-Based No Precautions Height and Weight Body Mass Index (BMI) 29.7 BMI Classification Overweight Vital Signs Temperature (97.8 F-99.1 F) 97 F L Temperature Source Temporal Pulse Rate (60-100) 75 Pulse Location Monitor Respiratory Rate (12-18) 18 Respiratory rate source Observation Blood Pressure (90/60-120/80) 134/69 H Blood Pressure Mean (mm Hg) 90 Source Monitor History Since Last Visit- (Skip if this is Patient's initial visit) Have you changed medications since your No last visit? Any new allergies or adverse reactions No Had a fall/change in ADL's that may No increase risk of falls Signs or symptoms of abuse and/or No neglect since last visit Have you been in the hospital since your No last visit? Has dressing in place as prescribed Yes Has compression in place as prescribed N/A Has offloadiing in place as prescribed Yes Experienced any changes in pain level or No management Pain Scale: 0-10 Numeric Is Patient Pain Free? Yes MARY - Nurse 1 - General Ulcer Measurement Start: 03/23/24 10:05 Freq: Status: Active Protocol: Activity Type Activity Date Activity User E-sign Co-sign Detail Recorded Client Recorded Date Recorded By Document 03/23/24 10:05 DL [id number] 03/23/24 10:14 DL 03/23/24 10:05 Wound Center Nurse 1 2 RT 3RD TOE -Current Size (cm) - Length 0.3 -Current Size (cm) - Width 0.2 -Current Size (cm) - Depth 0.6 -Total Square Cm 0.06 -Photo Taken Yes -Maximum Distance #2 (cm) 0.1 -Circular Undermining Yes -Exudate Amt Small -Exudate Type Sanguineous -Wound Margin Thickened -Granulation Amt Small (1-33%) -Granulation Quality Ken[place] -Necrosis Amt Small (1-33%) -Necrotic Tissue Type Eschar -Structure Exposed N/A -Texture (Leonor-wound Skin Appearance) Localized Edema ,Scarring -Moisture (Leonor-wound Skin Appearance) No Abnormality -Color (Leonor-wound Skin Appearance) No Abnormality -Temperature (Leonor-wound Skin No Abnormality Appearance) (Pt Warm) -Ulcer Cleansing Rinsed/ Irrigated with Saline -Foul Odor after Cleansing No -Anesthetic Used 5% Lidocaine Gel WC - Nurse 2 - General Ulcer CM Notes Start: 03/23/24 10:05 Freq: Status: Active Protocol: Activity Type Activity Date Activity User E-sign Co-sign Detail Recorded Client Recorded Date Recorded By Document 03/23/24 10:36 [facility] [id number] 03/23/24 10:41 [facility] 03/23/24 10:36 Wound Center Nurse 2 -Time 10:36 -Correct Patient Yes -Correct Side, Site, Position Yes -Correct Procedure Yes -Procedure Performed Yes -Type of Procedure Debridement -Clinical Debridement Subcutaneous -Tissue Removed Subcutaneous -Post Debridement (cm) - Length 0.4 -Post Debridement (cm) - Width 0.4 -Post Debridement (cm) - Depth 0.1 -Total Square (Post) (cm) 0.16 -Area of Debridement (cm) - Length 0.4 -Area of Debridement (cm) - Width 0.4 -Total Square (Area) (cm) 0.16 -Tunneling No -Undermining/Tunneling No -Circular Undermining No -Wound/Ulcer Outcome Not Healed -Ulcer Cleansing Rinsed/ Irrigated with Saline -Foul Odor after Cleansing No -Bioengineered Tissue No -Bleeding Controlled with Pressure -Treatment Response Procedure Tolerated Well -Debridement - Subq, 1st 20sq cm Yes Pain Scale: 0-10 Numeric Is Patient Pain Free? Yes WC - Nurse 3 - General Ulcer D/C NN Start: 03/23/24 10:05 Freq: Status: Active Protocol: Activity Type Activity Date Activity User E-sign Co-sign Detail Recorded Client Recorded Date Recorded By Document 03/23/24 11:13 DL [id number] 03/23/24 11:14 DL 03/23/24 11:13 Wound Care Center Nurse 3 2 RT 3RD TOE -Ulcer Cleansing Rinsed/ Irrigated with Saline -Foul Odor after Cleansing No -Other Dressing kalee -Primary Dressing Covered/Secured with Dry Gauze, Secured with Tape Treatment Response Procedure Tolerated Well Pain Scale: 0-10 Numeric Is Patient Pain Free? Yes WC - Visit Discharge Discharge Condition Stable Ambulatory Status Ambulatory Transportation Private Auto Assessment/Plan Assessment/Plan (1) Non-pressure chronic ulcer of other part of right foot with fat layer exposed: CODE(S): L97.512 - Non-pressure chronic ulcer of other part of right foot with fat layer exposed (2) Acquired hammertoe of right foot: CODE(S): M20.41 - Other hammer toe(s) (acquired), right foot (3) Cellulitis of right toe: CODE(S): L03.031 - Cellulitis of right toe (4) Type 2 diabetes mellitus without complications: CODE(S): E11.9 - Type 2 diabetes mellitus without complications (5) Type 2 diabetes mellitus with foot ulcer: CODE(S): E11.621 - Type 2 diabetes mellitus with foot ulcer; L97.509 - Non-pressure chronic ulcer of other part of unspecified foot with unspecified severity (6) Other hereditary and idiopathic neuropathies: CODE(S): G60.8 - Other hereditary and idiopathic neuropathies (7) Hallux limitus of right foot: CODE(S): M20.5X1 - Other deformities of toe(s) (acquired), right foot (8) Hallux limitus of left foot: CODE(S): M20.5X2 - Other deformities of toe(s) (acquired), left foot (9) Nicotine dependence: CODE(S): F17.200 - Nicotine dependence, unspecified, uncomplicated PLAN: Plan Patient seen and evaluated Predebridement measurement third digit right foot 0.4 cm x 0.3 cm x 0.1 cm Ulceration underwent debridement as noted in the clinical panel above. Postdebridement measurement 0.4 cm x 0.4 cm x 0.1 cm. Cultures obtained of the third digit demonstrating Strep Group B. Completed oral doxycycline 100 mg twice daily x 14 days stop date 03/19/24. He was started on additional oral antibiotic Augmentin 500mg BID x 14 days with stop date 03/30/24. Site was dressed with Kalee and dry sterile dressing. He is instructed to change dressing daily. Recommended returning to using crest pad for offloading third digit. Discussed this will be the only way to conservatively achieve healing. Ulceration demonstrates no reduction in size today versus previous visit but has some improvement in erythema and edema without purulence. He did undergo Radiograph 03/03/2024 of the foot demonstrating no acute osseous pathology. Discussed with the patient his hammertoe deformity is creating the wound as he ambulates. Discussed conservative care of offloading versus surgical intervention of flexor tenotomy. Patient continues to state he does not want to miss work and cannot work with open toed shoe/surgical shoe and thus continues to elect for conservative management at this time. I have discussed risk of infection of the digit and if oral antibiotics are not effective he may require distal Symes amputation of the third digit. He understands he is at high risk of digital amputaiton. Patient states he is aware of this and states if it comes to that then that is what I will do. I did again state the flexor tenotomy would be the more viable option at this time to allow for healing and improvement however continues to state he will wait as he does not want to miss work. He has previous ulceration of the plantar medial aspect of the left hallucal IPJ consistent with spinners callus secondary to hallux limitus right greater than left. Recommend continued offloading with power step inserts with the Aldridge's extension to bilateral foot. However he is not wearing inserts and presents in 'Hey-Dude' shoes or steel toe boots or Nike shoes to appointments. Discussed continued importance of offloading of bilateral first MTPJ via the Aldridge's extension on the orthotic insert otherwise he will run risk of reulceration at the left hallux. Hyperkeratosis about the left hallux was debrided today with no underlying wound. Also discussed surgical intervention of Leo osteotomy base of the left hallux versus IPJ arthroplasty. He still elects for conservative management of the left foot at this time. Discussed signs and symptoms of infection. Discussed if he notices redness progressing from the toe to the dorsal foot, purulent drainage from his wound site, increasing foul odor or darkening of tissue, or if he develops fever greater than 101 degree accompanied by nausea, vomiting, chills that these are signs of a progressing infection and he should report to the ED to receive IV antibiotics and further evaluation. He is understanding of this today. Discussed adequate protein intake to aid in wound healing. Discussed Wang supplementation which was recommended. Discussed importance of daily foot checks. Patient states that he is unable to check his own feet and his vision is starting to become poor. I discussed incorporating his to assist in these daily checks. Discussed his diabetic status and recent A1c of 6.7%. Discussed obtaining A1c is close to 6% as possible. Discussed proper diabetic diet to aid in overall health and wound healing. Discussed risks and complications of diabetes. He is understanding of our discussion and the need for continued surveillance to ensure no cuts or wounds or pressure sites to the foot. He is understanding to call the office sooner if he notices any of these. Discussed on 03/02/2024 the need for smoking cessation to aid in wound healing and for his overall health benefit. Discussed benefits from stopping smoking. Discussed risks with continued smoking including decreased blood flow to lower extremities and vital organs and overall impairment in healing and organ systems. Smoking cessation was offered. Patient currently declines at this time. Discussed if he wishes to pursue further to obtain aids to quit smoking to speak with his PCP. He states he is understanding of this. A total of 3 minutes was spent on discussion ([id number]). Despite prior discussion still continues to smoke. The following work up and care recommendations were made: Dressing: Kalee, dry sterile dressing. Change dressing daily Wash: Soap and water Tissue growth optimization: Kalee Offload: Power step inserts with Aldridge's extension to bilateral foot. Recommended crest padding offloading for third digit of right foot Vascular: DP and PT pulses palpable with adequate capillary fill time. Vascular status not impacting healing. Edema: None Infection: Localized cellulitis to distal third digit, culture demonstrates strep group B. Currently on oral antibiotic as above. Pain: No pain to palpation. 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 Host factors: Neuropathy, DM type II, nicotine dependence, bilateral hallux limitus, PVD, hammertoe deformity third digit right foot I answered all the patient's questions. To return to the wound healing center in 1 week or call sooner if the patient has any questions or concerns.
[2024-03-30 11:11] VITALS: BP 140/80; PULSE 72; RESP 18; TEMP 36.3; BMI 29.7
--- NOTE | 2024-03-30 12:30 | RAD_ITS ---
PROCEDURE: TOE(S) MIN 2 VIEWS; FOOT MIN 3 VIEWS REASON FOR EXAM: Third toe cellulitis. TECHNIQUE: Four views of the right third and 4th toes COMPARISON: None. RAD/Toe(s) Min 2 Views IMPRESSION: Marked destructive changes are seen at the right 3rd distal phalanx, particular ly distal and lateral aspects thereof. Lesser destructive changes are seen at the lateral aspect of the middle phalanx of the right 3rd toe. These findings are highly concerning for OSTEOMYELITIS. Mild degenerative changes are seen throughout the remainder of the foot, most p rominent at the 1st ray. No evidence of hallux valgus. Mild degenerative changes are seen of the ankle joint. [id number] posterior and inferior calcaneal spurring is seen. Normal contour of the Achilles tendon is noted. Reading Location: [id number]
--- NOTE | 2024-03-30 12:30 | RAD_ITS ---
PROCEDURE: TOE(S) MIN 2 VIEWS; FOOT MIN 3 VIEWS REASON FOR EXAM: Third toe cellulitis. TECHNIQUE: Four views of the right third and 4th toes COMPARISON: None. RAD/Foot min 3 Views IMPRESSION: Marked destructive changes are seen at the right 3rd distal phalanx, particular ly distal and lateral aspects thereof. Lesser destructive changes are seen at the lateral aspect of the middle phalanx of the right 3rd toe. These findings are highly concerning for OSTEOMYELITIS. Mild degenerative changes are seen throughout the remainder of the foot, most p rominent at the 1st ray. No evidence of hallux valgus. Mild degenerative changes are seen of the ankle joint. [id number] posterior and inferior calcaneal spurring is seen. Normal contour of the Achilles tendon is noted. Reading Location: [id number]
--- NOTE | 2024-03-30 13:43 | PCM.WC.PN ---
History of Present Illness Date of Service: 03/30/24 Chief Complaint: Left hallux wound History of Wound: Patient is a 63-year-old male who reports of new blister to the distal third digit of the right foot roughly 3 weeks duration. 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 States applying Neosporin and dry dressing daily. Patient reports recent A1c 6.7%. Denies taking medication for diabetes and does not check blood sugar. Does continue to smoke. Currently on Plavix, statin, metformin, lisinopril, and metoprolol. He states that the toe did turn a little red but denies anything of drainage from the toe. Denies having pain with the toe but states that he has neuropathy. Was seen in the wound care center in 2023 for a plantar left hallux ulceration however does not consistently wear his offloading insert and the site is developing hyperkeratosis again. Denies N/V/F/chills. Denies further complaints. Subjective Subjective This is a 63-year-old male who continues to follow with the wound care center for third digit distal tuft ulceration secondary to hammertoe deformity. Continues taking oral antibiotic. Did obtain the crest pad for offloading of the third digit, however has not been wearing this consistently as he feels he has 'too much swelling, and anything added to his foot in a shoe is uncomfortable'. Toe remains with some swelling which has not decreased with antibiotic. States pain has decreased with antibiotics. Denies trauma. Denies constitutional symptoms. Denies further complaints. Objective Data Objective Data Vital Signs: Vital Signs Temp Pulse Resp BP 97.4 F L 72 18 140/80 H 03/30/24 11:11 03/30/24 11:11 03/30/24 11:11 03/30/24 11:11 Weight: 99.337 kg Body Mass Index (BMI) 29.7 Radiography Diagnostic Testing: Radiology Impression Foot X-Ray 03/30/24 12:30 IMPRESSION: Marked destructive changes are seen at the right 3rd distal phalanx, particularly distal and lateral aspects thereof. Lesser destructive changes are seen at the lateral aspect of the middle phalanx of the right 3rd toe. These findings are highly concerning for OSTEOMYELITIS. Mild degenerative changes are seen throughout the remainder of the foot, most prominent at the 1st ray. No evidence of hallux valgus. Mild degenerative changes are seen of the ankle joint. [id number] posterior and inferior calcaneal spurring is seen. Normal contour of the Achilles tendon is noted. Reading Location: [id number] Toe X-Ray 03/30/24 12:30 IMPRESSION: Marked destructive changes are seen at the right 3rd distal phalanx, particularly distal and lateral aspects thereof. Lesser destructive changes are seen at the lateral aspect of the middle phalanx of the right 3rd toe. These findings are highly concerning for OSTEOMYELITIS. Mild degenerative changes are seen throughout the remainder of the foot, most prominent at the 1st ray. No evidence of hallux valgus. Mild degenerative changes are seen of the ankle joint. [id number] posterior and inferior calcaneal spurring is seen. Normal contour of the Achilles tendon is noted. Reading Location: [address] Physical Exam Const alert, oriented x3 and no apparent distress General Appearance: cooperative HEENT normocephalic Eyes General Eye: normal appearance of both eyes Neck General: normal visual inspection Lymph Lymphatic: no lymphadenopathy noted and no lymphedema noted Resp normal respiratory effort Cardio regular rate and regular rhythm Extremity no calf tenderness Extremity Narrative: Right lower extremity: Vascular: DP and PT pulses palpable. CFT is less than 4 seconds to digits. Normal temperature gradient. There is pedal hair growth noted. Neurologic: Gross sensation intact. Protective sensation diminished secondary to diabetic peripheral polyneuropathy. Musculoskeletal: Muscle strength 5 of 5 age-appropriate. There is decreased range of motion of the ankle joint dorsiflexion with the knee extended without pain or crepitus. There is a contracture of the second and third digit noted at the proximal interphalangeal joint consistent with hammertoe deformity. No pain to palpation about ulcerative site distal third digit. Contracture of the second and third digit noted to be flexible. Decreased range of motion of the first metatarsophalangeal joint without pain or crepitus. Dermatologic: There is an ulceration at the distal tuft of the third digit secondary to hammertoe deformity. There is localized erythema about the ulcerative site up to PIPJ of the third digit with edema, this is improving. No purulent drainage, no malodor no palpable fluctuance/bogginess noted. No lymphangitic streaking. Left lower extremity: Vascular: DP and PT pulses palpable. CFT is less than 4 seconds to digits. Normal temperature gradient. There is pedal hair growth noted. Neurologic: Gross sensation intact. Protective sensation diminished secondary to diabetic peripheral polyneuropathy. Musculoskeletal: Muscle strength 5 of 5 age-appropriate. There is decreased range of motion of the ankle joint in dorsiflexion with the knee extended without pain or crepitus. Decreased range of motion of the first metatarsophalangeal joint achieving less than 30 degrees consistent with hallux limitus without pain or crepitus. No pain to palpation about hallux interphalangeal joint at site of hyperkeratosis. No pain to palpation of calf. Dermatologic: There is hyperkeratosis/preulcerative lesion underlying the plantar medial aspect of the hallucal interphalangeal joint. No open ulceration postdebridement of hyperkeratosis. Remainder of skin otherwise unremarkable. Skin no rashes or lesions noted and skin turgor normal Neuro moves all extremities Debridement Note Debridement Note Wound debrided: Third digit distal tuft right foot Laterality: Right Wound Grade/Stage: Dobbs stage I Type of Debridement: Excisional debridement Anesthesia Used: 5% Lidocaine Gel Depth: Down to and including healthy tissue and in the subcutaneous layer Percentage of wound debrided: 100 Instrument Used: #15 blade Tissue Removed: Fibrous, devitalized subcutaneous, biofilm, slough Severity: Fat Layer Exposed Amount of bleeding with debridement: Mild Bleeding Controlled with: Compression and gauze Patient tolerated procedure: Patient tolerated procedure well Post-Debridement Measurements and Additional Note: Post-Debridement Measurements/Treatment WC - Nurse 1 - General Ulcer Assessment Start: 03/23/24 10:05 Freq: Status: Active Protocol: LOWEXT Activity Type Activity Date Activity User E-sign Co-sign Detail Recorded Client Recorded Date Recorded By Document 03/23/24 10:05 DL [id number] 03/23/24 10:14 DL Document 03/30/24 11:11 RB [id number] 03/30/24 11:14 RB 03/23/24 03/30/24 10:05 11:11 WC - Today's Visit Information Type of service Follow-up Visit Follow-up 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 ) ) Arrival Mode Ambulatory Ambulatory Transfer Assistance None None Patient Identification Verified (Name & Yes Yes ) Patient Requires Transmission-Based No No Precautions Height and Weight Body Mass Index (BMI) 29.7 29.7 BMI Classification Overweight Overweight Vital Signs Temperature (97.8 F-99.1 F) 97 F L 97.4 F L Temperature Source Temporal Temporal Pulse Rate (60-100) 75 72 Pulse Location Monitor Monitor Respiratory Rate (12-18) 18 18 Respiratory rate source Observation Observation Blood Pressure (90/60-120/80) 134/69 H 140/80 H Blood Pressure Mean (mm Hg) 90 100 Source Monitor Monitor Position Semi-Fowlers Blood Pressure Location Left Arm History Since Last Visit- (Skip if this is Patient's initial visit) Have you changed medications since your No No last visit? Any new allergies or adverse reactions No No Had a fall/change in ADL's that may No No increase risk of falls Signs or symptoms of abuse and/or No No neglect since last visit Have you been in the hospital since your No No last visit? Has dressing in place as prescribed Yes Yes Has compression in place as prescribed N/A N/A Has offloadiing in place as prescribed Yes N/A Experienced any changes in pain level or No No management Left Footwear Regular Shoe Right Footwear Regular Shoe Pain Scale: 0-10 Numeric Is Patient Pain Free? Yes No right foot -Description Throbbing -Intensity 4 -Duration (hours) Acute -Pain Behavior Withdrawal from Touch -Pain Aggravating Factors Exercise/ Activity -Alleviating Factors/Interventions Medication -Effectiveness of Alleviating Factor/ Moderately Intervention effective WC - Nurse 1 - General Ulcer Measurement Start: 03/23/24 10:05 Freq: Status: Active Protocol: Activity Type Activity Date Activity User E-sign Co-sign Detail Recorded Client Recorded Date Recorded By Document 03/23/24 10:05 DL [id number] 03/23/24 10:14 DL Document 03/30/24 11:11 RB [id number] 03/30/24 11:14 RB 03/23/24 03/30/24 10:05 11:11 Wound Center Nurse 1 2 RT 3RD TOE -Combined with other wound No -Current Size (cm) - Length 0.3 0.1 -Current Size (cm) - Width 0.2 0.1 -Current Size (cm) - Depth 0.6 0.1 -Total Square Cm 0.06 0.01 -Photo Taken Yes -Tunneling No -Undermining/Tunneling No -Maximum Distance #2 (cm) 0.1 -Circular Undermining Yes No -Exudate Amt Small Medium -Exudate Type Sanguineous Serosanguineous -Wound Margin Thickened Distinct, Outline Attached -Granulation Amt Small (1-33%) Medium (34-66%) -Granulation Quality [place] -Slough/Fibrin Yes -Necrosis Amt Small (1-33%) Medium (34-66%) -Necrotic Tissue Type Eschar Adherent Slough -Structure Exposed N/A N/A -Texture (Leonor-wound Skin Appearance) Localized Edema Assessed ,Scarring -Moisture (Leonor-wound Skin Appearance) No Abnormality Assessed -Color (Leonor-wound Skin Appearance) No Abnormality Assessed -Temperature (Leonor-wound Skin No Abnormality No Abnormality Appearance) (Pt Warm) (Pt Warm) -Tenderness on Palpation (Leonor-wound No Skin Appearance) -Ulcer Cleansing Rinsed/ Wound Cleanser Irrigated with Saline -Foul Odor after Cleansing No No -Anesthetic Used 5% Lidocaine 5% Lidocaine Gel Gel WC - Nurse 2 - General Ulcer CM Notes Start: 03/23/24 10:05 Freq: Status: Active Protocol: Activity Type Activity Date Activity User E-sign Co-sign Detail Recorded Client Recorded Date Recorded By Document 03/23/24 10:36 [facility] [id number] 03/23/24 10:41 [facility] Document 03/30/24 12:00 [facility] [id number] 03/30/24 12:04 [facility] 03/23/24 03/30/24 10:36 12:00 Wound Center Nurse 2 2 RT 3RD TOE -Time 10:36 12:00 -Correct Patient Yes Yes -Correct Side, Site, Position Yes Yes -Correct Procedure Yes Yes -Procedure Performed Yes Yes -Type of Procedure Debridement Debridement -Clinical Debridement Subcutaneous Subcutaneous -Tissue Removed Subcutaneous Subcutaneous -Post Debridement (cm) - Length 0.4 0.1 -Post Debridement (cm) - Width 0.4 0.1 -Post Debridement (cm) - Depth 0.1 0.1 -Total Square (Post) (cm) 0.16 0.01 -Area of Debridement (cm) - Length 0.4 0.1 -Area of Debridement (cm) - Width 0.4 0.1 -Total Square (Area) (cm) 0.16 0.01 -Tunneling No No -Undermining/Tunneling No No -Circular Undermining No No -Wound/Ulcer Outcome Not Healed Not Healed -Ulcer Cleansing Rinsed/ Rinsed/ Irrigated with Irrigated with Saline Saline -Foul Odor after Cleansing No No -Bioengineered Tissue No No -Bleeding Controlled with Pressure Pressure -Treatment Response Procedure Procedure Tolerated Well Tolerated Well -Debridement - Subq, 1st 20sq cm Yes Yes Pain Scale: 0-10 Numeric Is Patient Pain Free? Yes Yes - Nurse 3 - General Ulcer D/C NN Start: 03/23/24 10:05 Freq: Status: Active Protocol: Activity Type Activity Date Activity User E-sign Co-sign Detail Recorded Client Recorded Date Recorded By Document 03/23/24 11:13 DL [id number] 03/23/24 11:14 DL Document 03/30/24 12:15 RB [id number] 03/30/24 12:16 RB 03/23/24 03/30/24 11:13 12:15 Wound Care Center Nurse 3 2 RT 3RD TOE -Ulcer Cleansing Rinsed/ Irrigated with Saline -Foul Odor after Cleansing No -Other Dressing kalee -Primary Dressing Covered/Secured with Dry Gauze, Dry Gauze, Secured with Secured with Tape Tape Treatment Response Procedure Procedure Tolerated Well Tolerated Well Pain Scale: 0-10 Numeric Is Patient Pain Free? Yes Yes - Visit Discharge Discharge Condition Stable Stable Ambulatory Status Ambulatory Ambulatory Transportation Private Auto Private Auto Medication Reconcilliation completed & No provided to patient/care provider Clinical Summary of Care Provided Yes Assessment/Plan Assessment/Plan (1) Non-pressure chronic ulcer of other part of right foot with fat layer exposed: CODE(S): L97.512 - Non-pressure chronic ulcer of other part of right foot with fat layer exposed (2) Acquired hammertoe of right foot: CODE(S): M20.41 - Other hammer toe(s) (acquired), right foot (3) Cellulitis of right toe: CODE(S): L03.031 - Cellulitis of right toe (4) Type 2 diabetes mellitus without complications: CODE(S): E11.9 - Type 2 diabetes mellitus without complications (5) Type 2 diabetes mellitus with foot ulcer: CODE(S): E11.621 - Type 2 diabetes mellitus with foot ulcer; L97.509 - Non-pressure chronic ulcer of other part of unspecified foot with unspecified severity (6) Other hereditary and idiopathic neuropathies: CODE(S): G60.8 - Other hereditary and idiopathic neuropathies (7) Hallux limitus of right foot: CODE(S): M20.5X1 - Other deformities of toe(s) (acquired), right foot (8) Hallux limitus of left foot: CODE(S): M20.5X2 - Other deformities of toe(s) (acquired), left foot (9) Nicotine dependence: CODE(S): F17.200 - Nicotine dependence, unspecified, uncomplicated PLAN: Plan Patient seen and evaluated Predebridement measurement third digit right foot: Eschar Ulceration underwent debridement as noted in the clinical panel above. Postdebridement measurement 0.1 cm x 0.1 cm x 0.1 cm. Cultures obtained of the third digit demonstrating Strep Group B. Completed oral doxycycline 100 mg twice daily x 14 days stop date 03/19/24. He was started on additional oral antibiotic Augmentin 500mg BID x 14 days with stop date 03/30/24. Site was dressed with Kalee and dry sterile dressing. He is instructed to change dressing daily. Recommended returning to and continue using crest pad for offloading third digit. Discussed this will be the only way to conservatively achieve healing. Ulceration demonstrates slight reduction in size today versus previous visit but edema still remains to the digit. He did undergo Radiograph 03/03/2024 of the foot demonstrating no acute osseous pathology. Due to continue digit swelling despite oral antibiotic radiograph was ordered to 03/30/2024 he obtained x-rays after leaving facility. I have reviewed the radiographs of the right foot and third digit demonstrates subtle erosive changes to the distal phalanx with significant erosive patter change in cortical disruption of the plantar lateral distal third digit extending along the plantar aspect of the middle phalanx consistent with acute osteomyelitis. Will discuss these with the patient as he will likely require amputation of the third digit at the proximal interphalangeal joint. Discussed with the patient his hammertoe deformity is creating the wound as he ambulates. Discussed conservative care of offloading versus surgical intervention of flexor tenotomy. Patient continues to state he does not want to miss work and cannot work with open toed shoe/surgical shoe and thus continues to elect for conservative management at this time. I have discussed risk of infection of the digit and if oral antibiotics are not effective he may require distal Symes amputation of the third digit. He understands he is at high risk of digital amputation. Patient states he is aware of this and states if it comes to that then that is what I will do. I did again state the flexor tenotomy would be the more viable option at this time to allow for healing and improvement however continues to state he will wait as he does not want to miss work. He has previous ulceration of the plantar medial aspect of the left hallucal IPJ consistent with spinners callus secondary to hallux limitus right greater than left. Recommend continued offloading with power step inserts with the Aldridge's extension to bilateral foot. However he is not wearing inserts and presents in 'Hey-Dude' shoes or steel toe boots or Nike shoes to appointments. Discussed continued importance of offloading of bilateral first MTPJ via the Aldridge's extension on the orthotic insert otherwise he will run risk of reulceration at the left hallux. Hyperkeratosis about the left hallux was debrided today with no underlying wound. Also discussed surgical intervention of Leo osteotomy base of the left hallux versus IPJ arthroplasty. He still elects for conservative management of the left foot at this time. Discussed signs and symptoms of infection. Discussed if he notices redness progressing from the toe to the dorsal foot, purulent drainage from his wound site, increasing foul odor or darkening of tissue, or if he develops fever greater than 101 degree accompanied by nausea, vomiting, chills that these are signs of a progressing infection and he should report to the ED to receive IV antibiotics and further evaluation. He is understanding of this today. Discussed adequate protein intake to aid in wound healing. Discussed Wang supplementation which was recommended. Discussed importance of daily foot checks. Patient states that he is unable to check his own feet and his vision is starting to become poor. I discussed incorporating his to assist in these daily checks. Discussed his diabetic status and recent A1c of 6.7%. Discussed obtaining A1c is close to 6% as possible. Discussed proper diabetic diet to aid in overall health and wound healing. Discussed risks and complications of diabetes. He is understanding of our discussion and the need for continued surveillance to ensure no cuts or wounds or pressure sites to the foot. He is understanding to call the office sooner if he notices any of these. Discussed on 03/02/2024 the need for smoking cessation to aid in wound healing and for his overall health benefit. Discussed benefits from stopping smoking. Discussed risks with continued smoking including decreased blood flow to lower extremities and vital organs and overall impairment in healing and organ systems. Smoking cessation was offered. Patient currently declines at this time. Discussed if he wishes to pursue further to obtain aids to quit smoking to speak with his PCP. He states he is understanding of this. A total of 3 minutes was spent on discussion ([id number]). Despite prior discussion still continues to smoke. The following work up and care recommendations were made: Dressing: Kalee, dry sterile dressing. Change dressing daily Wash: Soap and water Tissue growth optimization: Kalee Offload: Power step inserts with Aldridge's extension to bilateral foot. Recommended crest padding offloading for third digit of right foot Vascular: DP and PT pulses palpable with adequate capillary fill time. Vascular status not impacting healing. Edema: None Infection: Localized cellulitis to distal third digit, culture demonstrates strep group B. Currently on oral antibiotic as above. Pain: No pain to palpation. 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 Host factors: Neuropathy, DM type II, nicotine dependence, bilateral hallux limitus, PVD, hammertoe deformity third digit right foot I answered all the patient's questions. To return to the wound healing center in 1 week or call sooner if the patient has any questions or concerns.
[2024-04-06 10:00] VITALS: BP 121/72; PULSE 70; RESP 18; TEMP 36.1; BMI 29.7
--- NOTE | 2024-04-06 13:45 | PN.PCM_ITS ---
History of Present Illness Date of Service: 04/06/24 Chief Complaint: Left hallux wound History of Wound: Patient is a 63-year-old male who reports of new blister to the distal third digit of the right foot roughly 3 weeks duration. 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 States applying Neosporin and dry dressing daily. Patient reports recent A1c 6.7%. Denies taking medication for diabetes and does not check blood sugar. Does continue to smoke. Currently on Plavix, statin, metformin, lisinopril, and metoprolol. He states that the toe did turn a little red but denies anything of drainage from the toe. Denies having pain with the toe but states that he has neuropathy. Was seen in the wound care center in 2023 for a plantar left hallux ulceration however does not consistently wear his offloading insert and the site is developing hyperkeratosis again. Denies N/V/F/chills. Denies further complaints. Subjective Subjective This is a 63-year-old male who continues to follow with the wound care center for third digit distal tuft ulceration secondary to hammertoe deformity. Continues taking oral antibiotic. Did obtain the crest pad for offloading of the third digit, however has not been wearing this consistently as he feels he has 'too much swelling, and anything added to his foot in a shoe is uncomfo rtable'. Toe remains with some swelling which has not decreased with antibiotic. States pain has decreased with antibiotics in addition to erythema. Does admit he is not dressing the digit anymore. Denies trauma. Denies constitutional symptoms. Denies further complaints. Objective Data Objective Data Vital Signs: Vital Signs Temp Pulse Resp BP O2 Del Method 96.9 F L 70 18 121/72 H Room Air 04/06/24 10:00 04/06/24 10:00 04/06/24 10:00 04/06/24 10:04/06/24 10:00 Oxygen Delivery Method Room Air Weight: 99.337 kg Body Mass Index (BMI) 29.7 Physical Exam Const alert, oriented x3 and no apparent distress General Appearance: cooperative HEENT normocephalic Eyes General Eye: normal appearance of both eyes Neck General: normal visual inspection Lymph Lymphatic: no lymphadenopathy noted and no lymphedema noted Resp normal respiratory effort Cardio regular rate and regular rhythm Extremity no calf tenderness Extremity Narrative: Right lower extremity: Vascular: DP and PT pulses palpable. CFT is less than 4 seconds to digits. Normal temperature gradient. There is pedal hair growth noted. Neurologic: Gross sensation intact. Protective sensation diminished secondary to diabetic peripheral polyneuropathy. Musculoskeletal: Muscle strength 5 of 5 age-appropriate. There is decreased range of motion of the ankle joint dorsiflexion with the knee extended without pain or crepitus. There is a contracture of the second and third digit noted at the proximal interphalangeal joint consistent with hammertoe deformity. No pain to palpation about ulcerative site distal third digit. Contracture of the second and third digit noted to be flexible. Decreased range of motion of the first metatarsophalangeal joint without pain or crepitus. Dermatologic: There is an ulceration at the distal tuft of the third digit secondary to hammertoe deformity. There is localized erythema about the ulcerative site up to PIPJ of the third digit with edema, this is improving on oral antibiotic. Distal tuft ulceration site is starting to epithelialize. No purulent drainage, no malodor no palpable fluctuance/bogginess noted. No lymphangitic streaking. Left lower extremity: Vascular: DP and PT pulses palpable. CFT is less than 4 seconds to digits. Normal temperature gradient. There is pedal hair growth noted. Neurologic: Gross sensation intact. Protective sensation diminished secondary to diabetic peripheral polyneuropathy. Musculoskeletal: Muscle strength 5 of 5 age-appropriate. There is decreased range of motion of the ankle joint in dorsiflexion with the knee extended without pain or crepitus. Decreased range of motion of the first metatarsophalangeal joint achieving less than 30 degrees consistent with hallux limitus without pain or crepitus. No pain to palpation about hallux interphalangeal joint at site of hyperkeratosis. No pain to palpation of calf. Dermatologic: There is hyperkeratosis/preulcerative lesion underlying the plantar medial aspect of the hallucal interphalangeal joint. No open ulceration postdebridement of hyperkeratosis. Remainder of skin otherwise unremarkable. Skin no rashes or lesions noted and skin turgor normal Neuro moves all extremities Debridement Note Debridement Note No debridement was completed: No debridement was completed today Post-Debridement Measurements and Additional Note: Post-Debridement Measurements/Treatment WC - Nurse 1 - General Ulcer Assessment Start: 03/23/24 10:05 Freq: Status: Active Protocol: [email or web address] Activity Type Activity Date Activity User E-sign Co-sign Detail Recorded Client Recorded Date Recorded By Document 03/23/24 10:05 DL [id number] 03/23/24 10:14 DL Document 03/30/24 11:11 RB [id number] 03/30/24 11:14 RB Document 04/06/24 10:00 KW [id number] 04/06/24 10:07 KW 03/23/24 03/30/24 04/06/24 10:05 11:11 10:00 WC - Today's Visit Information Type of service Follow-up Visit Follow-up Visit Follow-up Visit (Physician/BLOOD AND PLASMA LABORATORY ASSISTANT (Physician/BLOOD AND PLASMA LABORATORY ASSISTANT (Physician/BLOOD AND PLASMA LABORATORY ASSISTANT ) ) ) Arrival Mode Ambulatory Ambulatory Ambulatory Transfer Assistance None None Patient Identification Verified (Name & Yes Yes Yes ) Patient Requires Transmission-Based No No Precautions Height and Weight Body Mass Index (BMI) 29.7 29.7 29.7 BMI Classification Overweight Overweight Overweight Vital Signs Temperature (97.8 F-99.1 F) 97 F L 97.4 F L 96.9 F L Temperature Source Temporal Temporal Temporal Pulse Rate (60-100) 75 72 70 Pulse Location Monitor Monitor Monitor Respiratory Rate (12-18) 18 18 18 Respiratory rate source Observation Observation Observation Oxygen Delivery Method Room Air Blood Pressure (90/60-120/80) 134/69 H 140/80 H 121/72 H Blood Pressure Mean (mm Hg) 90 100 88 Source Monitor Monitor Monitor Position Semi-Fowlers Semi-Fowlers Blood Pressure Location Left Arm Left Arm History Since Last Visit- (Skip if this is Patient's initial visit) Have you changed medications since your No No No last visit? Any new allergies or adverse reactions No No No Had a fall/change in ADL's that may No No No increase risk of falls Signs or symptoms of abuse and/or No No No neglect since last visit Have you been in the hospital since your No No No last visit? Has dressing in place as prescribed Yes Yes Yes Has compression in place as prescribed N/A N/A N/A Has offloadiing in place as prescribed Yes N/A N/A Experienced any changes in pain level or No No No management Left Footwear Regular Shoe Regular Shoe Right Footwear Regular Shoe Regular Shoe Pain Scale: 0-10 Numeric Is Patient Pain Free? Yes No Yes right foot -Description Throbbing -Intensity 4 -Duration (hours) Acute -Pain Behavior Withdrawal from Touch -Pain Aggravating Factors Exercise/ Activity -Alleviating Factors/Interventions Medication -Effectiveness of Alleviating Factor/ Moderately Intervention effective WC - Nurse 1 - General Ulcer Measurement Start: 03/23/24 10:05 Freq: Status: Active Protocol: Activity Type Activity Date Activity User E-sign Co-sign Detail Recorded Client Recorded Date Recorded By Document 03/23/24 10:05 DL [id number] 03/23/24 10:14 DL Document 03/30/24 11:11 RB [id number] 03/30/24 11:14 RB Document 04/06/24 10:00 KW [id number] 04/06/24 10:07 KW 03/23/24 03/30/24 04/06/24 10:05 11:11 10:00 Wound Center Nurse 1 2 RT 3RD TOE -Combined with other wound No -Current Size (cm) - Length 0.3 0.1 0.1 -Current Size (cm) - Width 0.2 0.1 0.1 -Current Size (cm) - Depth 0.6 0.1 0 -Total Square Cm 0.06 0.01 0.01 -Date of Last Picture (Recall this 04/06/24 field) -Photo Taken Yes -Epithelialization Large 67-100% -Tunneling No -Undermining/Tunneling No -Maximum Distance #2 (cm) 0.1 -Circular Undermining Yes No -Exudate Amt Small Medium None Present -Exudate Type Sanguineous Serosanguineous -Wound Margin Thickened Distinct, Distinct, Outline Outline Attached Attached -Granulation Amt Small (1-33%) Medium (34-66%) None Present (0 %) -Granulation Quality Providence Providence -Slough/Fibrin Yes -Necrosis Amt Small (1-33%) Medium (34-66%) -Necrotic Tissue Type Eschar Adherent Slough -Structure Exposed N/A N/A -Texture (Leonor-wound Skin Appearance) Localized Edema Assessed Assessed ,Scarring -Moisture (Leonor-wound Skin Appearance) No Abnormality Assessed Assessed -Color (Leonor-wound Skin Appearance) No Abnormality Assessed No Abnormality -Temperature (Leonor-wound Skin No Abnormality No Abnormality No Abnormality Appearance) (Pt Warm) (Pt Warm) (Pt Warm) -Tenderness on Palpation (Leonor-wound No No Skin Appearance) -Ulcer Cleansing Rinsed/ Wound Cleanser Rinsed/ Irrigated with Irrigated with Saline Saline -Foul Odor after Cleansing No No No -Anesthetic Used 5% Lidocaine 5% Lidocaine 5% Lidocaine Gel Gel Gel WC - Nurse 2 - General Ulcer CM Notes Start: 03/23/24 10:05 Freq: Status: Active Protocol: Activity Type Activity Date Activity User E-sign Co-sign Detail Recorded Client Recorded Date Recorded By Document 03/23/24 10:36 BMF [id number] 03/23/24 10:41 BMF Document 03/30/24 12:00 BMF [id number] 03/30/24 12:04 BMF Document 04/06/24 10:48 BMF [id number] 04/06/24 10:51 BMF Edit Result 04/06/24 10:48 BM (1) [id number] 04/06/24 10:54 BM (1) 2 RT 3RD TOE - Procedure Performed => No - Post Debridement (cm) - Length => 0.1 - Post Debridement (cm) - Width => 0.1 - Post Debridement (cm) - Depth => 0.1 - Total Square (Post) (cm) => 0.01 - Area of Debridement (cm) - Length => 0.1 - Area of Debridement (cm) - Width => 0.1 - Total Square (Area) (cm) => 0.01 - Bleeding Controlled with Pressure => NA 03/23/24 03/30/24 04/06/24 10:36 12:00 10:48 Wound Center Nurse 2 2 RT 3RD TOE -Time 10:36 12:00 10:48 -Correct Patient Yes Yes -Correct Side, Site, Position Yes Yes -Correct Procedure Yes Yes -Procedure Performed Yes Yes No -Type of Procedure Debridement Debridement -Clinical Debridement Subcutaneous Subcutaneous -Tissue Removed Subcutaneous Subcutaneous -Post Debridement (cm) - Length 0.4 0.1 0.1 -Post Debridement (cm) - Width 0.4 0.1 0.1 -Post Debridement (cm) - Depth 0.1 0.1 0.1 -Total Square (Post) (cm) 0.16 0.01 0.01 -Area of Debridement (cm) - Length 0.4 0.1 0.1 -Area of Debridement (cm) - Width 0.4 0.1 0.1 -Total Square (Area) (cm) 0.16 0.01 0.01 -Tunneling No No No -Undermining/Tunneling No No No -Circular Undermining No No No -Wound/Ulcer Outcome Not Healed Not Healed Not Healed -Ulcer Cleansing Rinsed/ Rinsed/ Rinsed/ Irrigated with Irrigated with Irrigated with Saline Saline Saline -Foul Odor after Cleansing No No No -Bioengineered Tissue No No No -Bleeding Controlled with Pressure Pressure NA -Treatment Response Procedure Procedure Tolerated Well Tolerated Well -Debridement - Subq, 1st 20sq cm Yes Yes Pain Scale: 0-10 Numeric Is Patient Pain Free? Yes Yes Yes WC - Nurse 3 - General Ulcer D/C NN Start: 03/23/24 10:05 Freq: Status: Active Protocol: Activity Type Activity Date Activity User E-sign Co-sign Detail Recorded Client Recorded Date Recorded By Document 03/23/24 11:13 DL [id number] 03/23/24 11:14 DL Document 03/30/24 12:15 RB [id number] 03/30/24 12:16 RB Document 04/06/24 11:22 [id number] 04/06/24 11:23 03/23/24 03/30/24 04/06/24 11:13 12:15 11:22 Wound Care Center Nurse 3 2 RT 3RD TOE -Ulcer Cleansing Rinsed/ Irrigated with Saline -Foul Odor after Cleansing No -Other Dressing kalee -Primary Dressing Covered/Secured with Dry Gauze, Dry Gauze, Secured with Secured with Tape Tape Treatment Response Procedure Procedure Tolerated Well Tolerated Well Pain Scale: 0-10 Numeric Is Patient Pain Free? Yes Yes Yes WC - Visit Discharge Discharge Condition Stable Stable Stable Ambulatory Status Ambulatory Ambulatory Ambulatory Transportation Private Auto Private Auto Private Auto Medication Reconcilliation completed & No provided to patient/care provider Clinical Summary of Care Provided Yes 2 RT 3RD TOE -Ulcer Cleansing Not Cleansed -Foul Odor after Cleansing No -Primary Dressing Applied Other -Other Dressing bandaid Assessment/Plan Assessment/Plan (1) Non-pressure chronic ulcer of other part of right foot with fat layer exposed: CODE(S): L97.512 - Non-pressure chronic ulcer of other part of right foot with fat layer exposed (2) Acquired hammertoe of right foot: CODE(S): M20.41 - Other hammer toe(s) (acquired), right foot (3) Cellulitis of right toe: CODE(S): L03.031 - Cellulitis of right toe (4) Type 2 diabetes mellitus without complications: CODE(S): E11.9 - Type 2 diabetes mellitus without complications (5) Type 2 diabetes mellitus with foot ulcer: CODE(S): E11.621 - Type 2 diabetes mellitus with foot ulcer; L97.509 - Non-pressure chronic ulcer of other part of unspecified foot with unspecified severity (6) Other hereditary and idiopathic neuropathies: CODE(S): G60.8 - Other hereditary and idiopathic neuropathies (7) Hallux limitus of right foot: CODE(S): M20.5X1 - Other deformities of toe(s) (acquired), right foot (8) Hallux limitus of left foot: CODE(S): M20.5X2 - Other deformities of toe(s) (acquired), left foot (9) Nicotine dependence: CODE(S): F17.200 - Nicotine dependence, unspecified, uncomplicated PLAN: Plan Patient seen and evaluated Predebridement measurement third digit right foot: 0.1 cm by 0.1 cm x 0.1 cm Ulceration did not undergo debridement as noted in the clinical panel above. Postdebridement measurement 0.1 cm x 0.1 cm x 0.1 cm. Cultures obtained of the third digit demonstrating Strep Group B. Completed oral doxycycline 100 mg twice daily x 14 days stop date 03/19/24. He was started on additional oral antibiotic Augmentin 500mg BID x 14 days with stop date 03/30/24. Oral Augmentin was extended for an additional 28 days. Site was dressed with dry sterile dressing for protection of friable skin. He is instructed to change dressing daily and continue to monitor the digit. Recommended returning to and continue using crest pad for offloading third digit. Discussed this will be the only way to conservatively achieve healing. Ulceration demonstrates slight reduction in size today versus previous visit but edema still remains to the digit however his erythema is receding. Discussed the importance of continued dressing changes and padding and protecting/offloading the site as he has continued to do none of this. He did undergo Radiograph 03/03/2024 of the foot demonstrating no acute osseous pathology. Due to continue digit swelling despite oral antibiotic radiograph was ordered to 03/30/2024 he obtained x-rays after leaving facility. I have reviewed the radiographs of the right foot and third digit demonstrates subtle erosive changes to the distal phalanx with significant erosive patter change in cortical disruption of the plantar lateral distal third digit extending along the plantar aspect of the middle phalanx consistent with acute osteomyelitis. Will discuss these with the patient as he will likely require amputation of the third digit at the proximal interphalangeal joint. I did discuss his radiology/images with him today. Discussed that there is signs of acute osteomyelitis in the distal phalanx which would require amputation. Patient does refuse amputation at this time and would like to continue oral antibiotics as he feels his digit is improving. Discussed that yes his redness is improving however bone infection still resides in the underlying phalanx which may not improve on oral antibiotic. Patient states he does want to continue the oral antibiotic as states I want to keep my toe. We have discussed in detail continuing oral antibiotic with continued monitoring and if infection continues to worsen or he develops systemic signs and symptoms that he would no longer have the option and would undergo amputation. He is understanding of this. Discussed with the patient his hammertoe deformity is creating the wound as he ambulates. Discussed conservative care of offloading versus surgical intervention of flexor tenotomy. Patient continues to state he does not want to miss work and cannot work with open toed shoe/surgical shoe and thus continues to elect for conservative management at this time. I have discussed risk of infection of the digit and if oral antibiotics are not effective he may require distal Symes amputation of the third digit. He understands he is at high risk of digital amputation. Patient states he is aware of this and states if it comes to that then that is what I will do. I did again state the flexor tenotomy would be the more viable option at this time to allow for healing and improvement however continues to state he will wait as he does not want to miss work. He has previous ulceration of the plantar medial aspect of the left hallucal IPJ consistent with spinners callus secondary to hallux limitus right greater than left. Recommend continued offloading with power step inserts with the Aldridge's extension to bilateral foot. However he is not wearing inserts and presents in 'Hey-Dude' shoes or steel toe boots or Nike shoes to appointments. Discussed continued importance of offloading of bilateral first MTPJ via the Aldridge's extension on the orthotic insert otherwise he will run risk of reulceration at the left hallux. Hyperkeratosis about the left hallux was debrided today with no underlying wound. Also discussed surgical intervention of Leo osteotomy base of the left hallux versus IPJ arthroplasty. He still elects for conservative management of the left foot at this time. Discussed signs and symptoms of infection. Discussed if he notices redness progressing from the toe to the dorsal foot, purulent drainage from his wound site, increasing foul odor or darkening of tissue, or if he develops fever greater than 101 degree accompanied by nausea, vomiting, chills that these are signs of a progressing infection and he should report to the ED to receive IV antibiotics and further evaluation. He is understanding of this today. Discussed adequate protein intake to aid in wound healing. Discussed Wang supplementation which was recommended. Discussed importance of daily foot checks. Patient states that he is unable to check his own feet and his vision is starting to become poor. I discussed incorporating his to assist in these daily checks. Discussed his diabetic status and recent A1c of 6.7%. Discussed obtaining A1c is close to 6% as possible. Discussed proper diabetic diet to aid in overall health and wound healing. Discussed risks and complications of diabetes. He is understanding of our discussion and the need for continued surveillance to ensure no cuts or wounds or pressure sites to the foot. He is understanding to call the office sooner if he notices any of these. Discussed on 03/02/2024 the need for smoking cessation to aid in wound healing and for his overall health benefit. Discussed benefits from stopping smoking. Discussed risks with continued smoking including decreased blood flow to lower extremities and vital organs and overall impairment in healing and organ systems. Smoking cessation was offered. Patient currently declines at this time. Discussed if he wishes to pursue further to obtain aids to quit smoking to speak with his PCP. He states he is understanding of this. A total of 3 minutes was spent on discussion ([id number]). Despite prior discussion still continues to smoke. The following work up and care recommendations were made: Dressing: dry sterile dressing to pad and protect site. Change dressing daily Wash: Soap and water Tissue growth optimization: None Offload: Power step inserts with Aldridge's extension to bilateral foot. Recommended crest padding offloading for third digit of right foot Vascular: DP and PT pulses palpable with adequate capillary fill time. Vascular status not impacting healing. Edema: None Infection: Localized cellulitis to distal third digit, culture demonstrates strep group B. Currently on oral antibiotic as above. Pain: No pain to palpation. 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 Host factors: Neuropathy, DM type II, nicotine dependence, bilateral hallux limitus, PVD, hammertoe deformity third digit right foot I answered all the patient's questions. To return to the wound healing center in 1 week or call sooner if the patient has any questions or concerns.
--- NOTE | 2024-04-07 12:31 | WC ---
PHOTO 04/06/24 Right 3rd Toe
[2024-04-13 09:53] VITALS: BP 145/86; PULSE 75; RESP 18; TEMP 36.1; BMI 29.7
--- NOTE | 2024-04-13 13:22 | PCM.WC.PN ---
History of Present Illness Date of Service: 04/13/24 Chief Complaint: Left hallux wound History of Wound: Patient is a 63-year-old male who reports of new blister to the distal third digit of the right foot roughly 3 weeks duration. 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 States applying Neosporin and dry dressing daily. Patient reports recent A1c 6.7%. Denies taking medication for diabetes and does not check blood sugar. Does continue to smoke. Currently on Plavix, statin, metformin, lisinopril, and metoprolol. He states that the toe did turn a little red but denies anything of drainage from the toe. Denies having pain with the toe but states that he has neuropathy. Was seen in the wound care center in 2023 for a plantar left hallux ulceration however does not consistently wear his offloading insert and the site is developing hyperkeratosis again. Denies N/V/F/chills. Denies further complaints. Subjective Subjective This is a 63-year-old male who continues to follow with the wound care center for third digit distal tuft ulceration secondary to hammertoe deformity. Continues taking oral antibiotic. Did obtain the crest pad for offloading of the third digit, however has not been wearing this consistently as he feels he has 'too much swelling, and anything added to his foot in a shoe is uncomfortable'. Toe remains with some swelling which is now improving with antibiotic. States pain has decreased with antibiotics and erythema is resolved. Is continuing to now pad and protect the distal digit with Band-Aid. Denies trauma. Denies constitutional symptoms. Denies further complaints. Objective Data Objective Data Vital Signs: Vital Signs Temp Pulse Resp BP O2 Del Method 96.9 F L 75 18 145/86 H Room Air 04/13/24 09:53 04/13/24 09:53 04/13/24 09:53 04/13/24 09:53 04/13/24 09:53 Oxygen Delivery Method Room Air Weight: 99.337 kg Body Mass Index (BMI) 29.7 Physical Exam Const alert, oriented x3 and no apparent distress General Appearance: cooperative HEENT normocephalic Eyes General Eye: normal appearance of both eyes Neck General: normal visual inspection Lymph Lymphatic: no lymphadenopathy noted and no lymphedema noted Resp normal respiratory effort Cardio regular rate and regular rhythm Extremity no calf tenderness Extremity Narrative: Right lower extremity: Vascular: DP and PT pulses palpable. CFT is less than 4 seconds to digits. Normal temperature gradient. There is pedal hair growth noted. Neurologic: Gross sensation intact. Protective sensation diminished secondary to diabetic peripheral polyneuropathy. Musculoskeletal: Muscle strength 5 of 5 age-appropriate. There is decreased range of motion of the ankle joint dorsiflexion with the knee extended without pain or crepitus. There is a contracture of the second and third digit noted at the proximal interphalangeal joint consistent with hammertoe deformity. No pain to palpation about ulcerative site distal third digit. Contracture of the second and third digit noted to be flexible. Decreased range of motion of the first metatarsophalangeal joint without pain or crepitus. Dermatologic: There is an ulceration at the distal tuft of the third digit secondary to hammertoe deformity. There is resolution of erythema about the ulcerative site up to PIPJ of the third digit. Edema also improved on oral antibiotic. Distal tuft ulceration site is continuing to epithelialize. No purulent drainage, no malodor no palpable fluctuance/bogginess noted. No lymphangitic streaking. Left lower extremity: Vascular: DP and PT pulses palpable. CFT is less than 4 seconds to digits. Normal temperature gradient. There is pedal hair growth noted. Neurologic: Gross sensation intact. Protective sensation diminished secondary to diabetic peripheral polyneuropathy. Musculoskeletal: Muscle strength 5 of 5 age-appropriate. There is decreased range of motion of the ankle joint in dorsiflexion with the knee extended without pain or crepitus. Decreased range of motion of the first metatarsophalangeal joint achieving less than 30 degrees consistent with hallux limitus without pain or crepitus. No pain to palpation about hallux interphalangeal joint at site of hyperkeratosis. No pain to palpation of calf. Dermatologic: There is hyperkeratosis/preulcerative lesion underlying the plantar medial aspect of the hallucal interphalangeal joint. No open ulceration postdebridement of hyperkeratosis. Remainder of skin otherwise unremarkable. Skin no rashes or lesions noted and skin turgor normal Neuro moves all extremities Debridement Note Debridement Note Wound debrided: Third digit right foot Laterality: Right Wound Grade/Stage: Dobbs stage I Type of Debridement: Excisional debridement Anesthesia Used: 5% Lidocaine Gel Depth: Down to and including healthy tissue and in the subcutaneous layer Percentage of wound debrided: 100 Instrument Used: #15 blade Tissue Removed: Fibrous, devitalized subcutaneous, biofilm, slough Severity: Fat Layer Exposed Amount of bleeding with debridement: Mild Bleeding Controlled with: Compression and gauze Patient tolerated procedure: Patient tolerated procedure well Post-Debridement Measurements and Additional Note: Post-Debridement Measurements/Treatment - Nurse 1 - General Ulcer Assessment Start: 03/23/24 10:05 Freq: Status: Active Protocol: TOMMIE Activity Type Activity Date Activity User E-sign Co-sign Detail Recorded Client Recorded Date Recorded By Document 03/23/24 10:05 DL [id number] 03/23/24 10:14 DL Document 03/30/24 11:11 RB [id number] 03/30/24 11:14 RB Document 04/06/24 10:00 KW [id number] 04/06/24 10:07 KW Document 04/13/24 09:53 KW [id number] 04/13/24 09:55 KW 03/23/24 03/30/24 04/06/24 10:05 11:11 10:00 - Today's Visit Information Type of service Follow-up Visit Follow-up Visit Follow-up Visit (Physician/TRANSITIONS RN CARE COORDINATOR (Physician/TRANSITIONS RN CARE COORDINATOR (Physician/TRANSITIONS RN CARE COORDINATOR ) ) ) Arrival Mode Ambulatory Ambulatory Ambulatory Transfer Assistance None None Patient Identification Verified (Name & Yes Yes Yes ) Patient Requires Transmission-Based No No Precautions Height and Weight Body Mass Index (BMI) 29.7 29.7 29.7 BMI Classification Overweight Overweight Overweight Vital Signs Temperature (97.8 F-99.1 F) 97 F L 97.4 F L 96.9 F L Temperature Source Temporal Temporal Temporal Pulse Rate (60-100) 75 72 70 Pulse Location Monitor Monitor Monitor Respiratory Rate (12-18) 18 18 18 Respiratory rate source Observation Observation Observation Oxygen Delivery Method Room Air Blood Pressure (90/60-120/80) 134/69 H 140/80 H 121/72 H Blood Pressure Mean (mm Hg) 90 100 88 Source Monitor Monitor Monitor Position Semi-Fowlers Semi-Fowlers Blood Pressure Location Left Arm Left Arm History Since Last Visit- (Skip if this is Patient's initial visit) Have you changed medications since your No No No last visit? Any new allergies or adverse reactions No No No Had a fall/change in ADL's that may No No No increase risk of falls Signs or symptoms of abuse and/or No No No neglect since last visit Have you been in the hospital since your No No No last visit? Has dressing in place as prescribed Yes Yes Yes Has compression in place as prescribed N/A N/A N/A Has offloadiing in place as prescribed Yes N/A N/A Experienced any changes in pain level or No No No management Left Footwear Regular Shoe Regular Shoe Right Footwear Regular Shoe Regular Shoe Pain Scale: 0-10 Numeric Is Patient Pain Free? Yes No Yes right foot -Description Throbbing -Intensity 4 -Duration (hours) Acute -Pain Behavior Withdrawal from Touch -Pain Aggravating Factors Exercise/ Activity -Alleviating Factors/Interventions Medication -Effectiveness of Alleviating Factor/ Moderately Intervention effective 04/13/24 09:53 WC - Today's Visit Information Type of service Follow-up Visit (Physician/TRANSITIONS RN CARE COORDINATOR ) Arrival Mode Ambulatory Transfer Assistance Patient Identification Verified (Name & Yes ) Patient Requires Transmission-Based Precautions Height and Weight Body Mass Index (BMI) 29.7 BMI Classification Overweight Vital Signs Temperature (97.8 F-99.1 F) 96.9 F L Temperature Source Temporal Pulse Rate (60-100) 75 Pulse Location Monitor Respiratory Rate (12-18) 18 Respiratory rate source Observation Oxygen Delivery Method Room Air Blood Pressure (90/60-120/80) 145/86 H Blood Pressure Mean (mm Hg) 105 Source Monitor Position Semi-Fowlers Blood Pressure Location Left Arm History Since Last Visit- (Skip if this is Patient's initial visit) Have you changed medications since your No last visit? Any new allergies or adverse reactions No Had a fall/change in ADL's that may No increase risk of falls Signs or symptoms of abuse and/or No neglect since last visit Have you been in the hospital since your No last visit? Has dressing in place as prescribed Yes Has compression in place as prescribed Yes Has offloadiing in place as prescribed N/A Experienced any changes in pain level or No management Left Footwear Regular Shoe Right Footwear Regular Shoe Pain Scale: 0-10 Numeric Is Patient Pain Free? Yes right foot -Description -Intensity -Duration (hours) -Pain Behavior -Pain Aggravating Factors -Alleviating Factors/Interventions -Effectiveness of Alleviating Factor/ Intervention WC - Nurse 1 - General Ulcer Measurement Start: 03/23/24 10:05 Freq: Status: Active Protocol: Activity Type Activity Date Activity User E-sign Co-sign Detail Recorded Client Recorded Date Recorded By Document 03/23/24 10:05 DL [id number] 03/23/24 10:14 DL Document 03/30/24 11:11 RB [id number] 03/30/24 11:14 RB Document 04/06/24 10:00 KW [id number] 04/06/24 10:07 KW Document 04/13/24 09:53 KW [id number] 04/13/24 09:55 KW 03/23/24 03/30/24 04/06/24 10:05 11:11 10:00 Wound Center Nurse 1 2 RT 3RD TOE -Combined with other wound No -Current Size (cm) - Length 0.3 0.1 0.1 -Current Size (cm) - Width 0.2 0.1 0.1 -Current Size (cm) - Depth 0.6 0.1 0 -Total Square Cm 0.06 0.01 0.01 -Date of Last Picture (Recall this 04/06/24 field) -Photo Taken Yes -Epithelialization Large 67-100% -Tunneling No -Undermining/Tunneling No -Maximum Distance #2 (cm) 0.1 -Circular Undermining Yes No -Exudate Amt Small Medium None Present -Exudate Type Sanguineous Serosanguineous -Wound Margin Thickened Distinct, Distinct, Outline Outline Attached Attached -Granulation Amt Small (1-33%) Medium (34-66%) None Present (0 %) -Granulation Quality [place] -Slough/Fibrin Yes -Necrosis Amt Small (1-33%) Medium (34-66%) -Necrotic Tissue Type Eschar Adherent Slough -Structure Exposed N/A N/A -Texture (Leonor-wound Skin Appearance) Localized Edema Assessed Assessed ,Scarring -Moisture (Leonor-wound Skin Appearance) No Abnormality Assessed Assessed -Color (Leonor-wound Skin Appearance) No Abnormality Assessed No Abnormality -Temperature (Leonor-wound Skin No Abnormality No Abnormality No Abnormality Appearance) (Pt Warm) (Pt Warm) (Pt Warm) -Tenderness on Palpation (Leonor-wound No No Skin Appearance) -Ulcer Cleansing Rinsed/ Wound Cleanser Rinsed/ Irrigated with Irrigated with Saline Saline -Foul Odor after Cleansing No No No -Anesthetic Used 5% Lidocaine 5% Lidocaine 5% Lidocaine Gel Gel Gel 04/13/24 09:53 Wound Center Nurse 1 2 RT 3RD TOE -Combined with other wound -Current Size (cm) - Length 0.1 -Current Size (cm) - Width 0.1 -Current Size (cm) - Depth 0.1 -Total Square Cm 0.01 -Date of Last Picture (Recall this field) -Photo Taken -Epithelialization -Tunneling -Undermining/Tunneling -Maximum Distance #2 (cm) -Circular Undermining -Exudate Amt Small -Exudate Type Serosanguineous -Wound Margin Distinct, Outline Attached -Granulation Amt Small (1-33%) -Granulation Quality [place] -Slough/Fibrin -Necrosis Amt -Necrotic Tissue Type -Structure Exposed -Texture (Leonor-wound Skin Appearance) Assessed, Localized Edema -Moisture (Leonor-wound Skin Appearance) Assessed -Color (Leonor-wound Skin Appearance) Not Assessed -Temperature (Leonor-wound Skin No Abnormality Appearance) (Pt Warm) -Tenderness on Palpation (Leonor-wound Yes Skin Appearance) -Ulcer Cleansing Rinsed/ Irrigated with Saline -Foul Odor after Cleansing No -Anesthetic Used 5% Lidocaine Gel WC - Nurse 2 - General Ulcer CM Notes Start: 03/23/24 10:05 Freq: Status: Active Protocol: Activity Type Activity Date Activity User E-sign Co-sign Detail Recorded Client Recorded Date Recorded By Document 03/23/24 10:36 BMF [id number] 03/23/24 10:41 BMF Document 03/30/24 12:00 BMF [id number] 03/30/24 12:04 BMF Document 04/06/24 10:48 BMF [id number] 04/06/24 10:51 BMF Edit Result 04/06/24 10:48 BMF (1) [id number] 04/06/24 10:54 BMF Document 04/13/24 10:09 BMF [id number] 04/13/24 10:12 BMF (1) 2 RT 3RD TOE - Procedure Performed => No - Post Debridement (cm) - Length => 0.1 - Post Debridement (cm) - Width => 0.1 - Post Debridement (cm) - Depth => 0.1 - Total Square (Post) (cm) => 0.01 - Area of Debridement (cm) - Length => 0.1 - Area of Debridement (cm) - Width => 0.1 - Total Square (Area) (cm) => 0.01 - Bleeding Controlled with Pressure => NA 03/23/24 03/30/24 04/06/24 10:36 12:00 10:48 Wound Center Nurse 2 2 RT 3RD TOE -Time 10:36 12:00 10:48 -Correct Patient Yes Yes -Correct Side, Site, Position Yes Yes -Correct Procedure Yes Yes -Procedure Performed Yes Yes No -Type of Procedure Debridement Debridement -Clinical Debridement Subcutaneous Subcutaneous -Tissue Removed Subcutaneous Subcutaneous -Post Debridement (cm) - Length 0.4 0.1 0.1 -Post Debridement (cm) - Width 0.4 0.1 0.1 -Post Debridement (cm) - Depth 0.1 0.1 0.1 -Total Square (Post) (cm) 0.16 0.01 0.01 -Area of Debridement (cm) - Length 0.4 0.1 0.1 -Area of Debridement (cm) - Width 0.4 0.1 0.1 -Total Square (Area) (cm) 0.16 0.01 0.01 -Tunneling No No No -Undermining/Tunneling No No No -Circular Undermining No No No -Wound/Ulcer Outcome Not Healed Not Healed Not Healed -Ulcer Cleansing Rinsed/ Rinsed/ Rinsed/ Irrigated with Irrigated with Irrigated with Saline Saline Saline -Foul Odor after Cleansing No No No -Bioengineered Tissue No No No -Bleeding Controlled with Pressure Pressure NA -Treatment Response Procedure Procedure Tolerated Well Tolerated Well -Debridement - Subq, 1st 20sq cm Yes Yes Pain Scale: 0-10 Numeric Is Patient Pain Free? Yes Yes Yes 04/13/24 10:09 Wound Center Nurse 2 2 RT 3RD TOE -Time 10:09 -Correct Patient Yes -Correct Side, Site, Position Yes -Correct Procedure Yes -Procedure Performed Yes -Type of Procedure Debridement -Clinical Debridement Subcutaneous -Tissue Removed Subcutaneous -Post Debridement (cm) - Length 0.1 -Post Debridement (cm) - Width 0.1 -Post Debridement (cm) - Depth 0.1 -Total Square (Post) (cm) 0.01 -Area of Debridement (cm) - Length 0.1 -Area of Debridement (cm) - Width 0.1 -Total Square (Area) (cm) 0.01 -Tunneling No -Undermining/Tunneling No -Circular Undermining No -Wound/Ulcer Outcome Not Healed -Ulcer Cleansing Rinsed/ Irrigated with Saline -Foul Odor after Cleansing No -Bioengineered Tissue No -Bleeding Controlled with Pressure -Treatment Response Procedure Tolerated Well -Debridement - Subq, 1st 20sq cm Yes Pain Scale: 0-10 Numeric Is Patient Pain Free? Yes - Nurse 3 - General Ulcer D/C NN Start: 03/23/24 10:05 Freq: Status: Active Protocol: Activity Type Activity Date Activity User E-sign Co-sign Detail Recorded Client Recorded Date Recorded By Document 03/23/24 11:13 DL [id number] 03/23/24 11:14 DL Document 03/30/24 12:15 RB [id number] 03/30/24 12:16 RB Document 04/06/24 11:22 GM [id number] 04/06/24 11:23 GM Document 04/13/24 10:20 KW [id number] 04/13/24 10:20 KW 03/23/24 03/30/24 04/06/24 11:13 12:15 11:22 Wound Care Center Nurse 3 2 RT 3RD TOE -Ulcer Cleansing Rinsed/ Irrigated with Saline -Foul Odor after Cleansing No -Other Dressing kalee -Primary Dressing Covered/Secured with Dry Gauze, Dry Gauze, Secured with Secured with Tape Tape Treatment Response Procedure Procedure Tolerated Well Tolerated Well Pain Scale: 0-10 Numeric Is Patient Pain Free? Yes Yes Yes WC - Visit Discharge Discharge Condition Stable Stable Stable Ambulatory Status Ambulatory Ambulatory Ambulatory Transportation Private Auto Private Auto Private Auto Medication Reconcilliation completed & No provided to patient/care provider Clinical Summary of Care Provided Yes 2 RT 3RD TOE -Ulcer Cleansing Not Cleansed -Foul Odor after Cleansing No -Primary Dressing Applied Other -Other Dressing bandaid -Primary Dressing Covered/Secured with 04/13/24 10:20 Wound Care Center Nurse 3 2 RT 3RD TOE -Ulcer Cleansing -Foul Odor after Cleansing -Other Dressing -Primary Dressing Covered/Secured with Treatment Response Pain Scale: 0-10 Numeric Is Patient Pain Free? Yes WC - Visit Discharge Discharge Condition Stable Ambulatory Status Ambulatory Transportation Private Auto Medication Reconcilliation completed & No provided to patient/care provider Clinical Summary of Care Provided Yes 2 RT 3RD TOE -Ulcer Cleansing -Foul Odor after Cleansing -Primary Dressing Applied -Other Dressing BETADINE -Primary Dressing Covered/Secured with Dry Gauze, Secured with Tape Assessment/Plan Assessment/Plan (1) Non-pressure chronic ulcer of other part of right foot with fat layer exposed: CODE(S): L97.512 - Non-pressure chronic ulcer of other part of right foot with fat layer exposed (2) Acquired hammertoe of right foot: CODE(S): M20.41 - Other hammer toe(s) (acquired), right foot (3) Cellulitis of right toe: CODE(S): L03.031 - Cellulitis of right toe (4) Type 2 diabetes mellitus without complications: CODE(S): E11.9 - Type 2 diabetes mellitus without complications (5) Type 2 diabetes mellitus with foot ulcer: CODE(S): E11.621 - Type 2 diabetes mellitus with foot ulcer; L97.509 - Non-pressure chronic ulcer of other part of unspecified foot with unspecified severity (6) Other hereditary and idiopathic neuropathies: CODE(S): G60.8 - Other hereditary and idiopathic neuropathies (7) Hallux limitus of right foot: CODE(S): M20.5X1 - Other deformities of toe(s) (acquired), right foot (8) Hallux limitus of left foot: CODE(S): M20.5X2 - Other deformities of toe(s) (acquired), left foot (9) Nicotine dependence: CODE(S): F17.200 - Nicotine dependence, unspecified, uncomplicated PLAN: Plan Patient seen and evaluated Predebridement measurement third digit right foot: 0.1 cm by 0.1 cm x 0.1 cm Ulceration did not undergo debridement as noted in the clinical panel above. Postdebridement measurement 0.1 cm x 0.1 cm x 0.1 cm. Cultures obtained of the third digit demonstrating Strep Group B. Completed oral doxycycline 100 mg twice daily x 14 days stop date 03/19/24. He was started on additional oral antibiotic Augmentin 500mg BID x 14 days with stop date 03/30/24. Oral Augmentin was extended for an additional 28 days, and he continues taking this (new stop date 04/27/2024). Site was painted with Betadine and dressed with dry sterile dressing for protection of friable skin. He is instructed to change dressing daily and continue to monitor the digit. Recommended returning to and continue using crest pad for offloading third digit. Discussed this will be the only way to conservatively achieve healing. Ulceration demonstrates slight reduction in size today versus previous visit and edema has improved and erythema resolved. Discussed the importance of continued dressing changes and padding and protecting/offloading the site as he has continued to do none of this. He did undergo Radiograph 03/03/2024 of the foot demonstrating no acute osseous pathology. Due to continue digit swelling despite oral antibiotic radiograph was ordered to 03/30/2024 he obtained x-rays after leaving facility. I have reviewed the radiographs of the right foot and third digit demonstrates subtle erosive changes to the distal phalanx with significant erosive patter change in cortical disruption of the plantar lateral distal third digit extending along the plantar aspect of the middle phalanx consistent with acute osteomyelitis. Will discuss these with the patient as he will likely require amputation of the third digit at the proximal interphalangeal joint. I did discuss his radiology/images with him today. Discussed that there is signs of acute osteomyelitis in the distal phalanx which would require amputation. Patient does refuse amputation at this time and would like to continue oral antibiotics as he feels his digit is improving. Discussed that yes his redness is improving however bone infection still resides in the underlying phalanx which may not improve on oral antibiotic. Patient states he does want to continue the oral antibiotic as states I want to keep my toe. We have discussed in detail continuing oral antibiotic with continued monitoring and if infection continues to worsen or he develops systemic signs and symptoms that he would no longer have the option and would undergo amputation. He is understanding of this. Currently antibiotic is improving his edema and erythema has resolved. He would like to continue oral antibiotic and attempts to salvage the third digit. Discussed with the patient his hammertoe deformity is creating the wound as he ambulates. Discussed conservative care of offloading versus surgical intervention of flexor tenotomy. Patient continues to state he does not want to miss work and cannot work with open toed shoe/surgical shoe and thus continues to elect for conservative management at this time. I have discussed risk of infection of the digit and if oral antibiotics are not effective he may require distal Symes amputation of the third digit. He understands he is at high risk of digital amputation. Patient states he is aware of this and states if it comes to that then that is what I will do. I did again state the flexor tenotomy would be the more viable option at this time to allow for healing and improvement however continues to state he will wait as he does not want to miss work. He has previous ulceration of the plantar medial aspect of the left hallucal IPJ consistent with spinners callus secondary to hallux limitus right greater than left. Recommend continued offloading with power step inserts with the Aldridge's extension to bilateral foot. However he is not wearing inserts and presents in 'Hey-Dude' shoes or steel toe boots or Nike shoes to appointments. Discussed continued importance of offloading of bilateral first MTPJ via the Aldridge's extension on the orthotic insert otherwise he will run risk of reulceration at the left hallux. Hyperkeratosis about the left hallux was debrided today with no underlying wound. Also discussed surgical intervention of Leo osteotomy base of the left hallux versus IPJ arthroplasty. He still elects for conservative management of the left foot at this time. Discussed signs and symptoms of infection. Discussed if he notices redness progressing from the toe to the dorsal foot, purulent drainage from his wound site, increasing foul odor or darkening of tissue, or if he develops fever greater than 101 degree accompanied by nausea, vomiting, chills that these are signs of a progressing infection and he should report to the ED to receive IV antibiotics and further evaluation. He is understanding of this today. Discussed adequate protein intake to aid in wound healing. Discussed Wang supplementation which was recommended. Discussed importance of daily foot checks. Patient states that he is unable to check his own feet and his vision is starting to become poor. I discussed incorporating his to assist in these daily checks. Discussed his diabetic status and recent A1c of 6.7%. Discussed obtaining A1c is close to 6% as possible. Discussed proper diabetic diet to aid in overall health and wound healing. Discussed risks and complications of diabetes. He is understanding of our discussion and the need for continued surveillance to ensure no cuts or wounds or pressure sites to the foot. He is understanding to call the office sooner if he notices any of these. Discussed on 03/02/2024 the need for smoking cessation to aid in wound healing and for his overall health benefit. Discussed benefits from stopping smoking. Discussed risks with continued smoking including decreased blood flow to lower extremities and vital organs and overall impairment in healing and organ systems. Smoking cessation was offered. Patient currently declines at this time. Discussed if he wishes to pursue further to obtain aids to quit smoking to speak with his PCP. He states he is understanding of this. A total of 3 minutes was spent on discussion ([id number]). Despite prior discussion still continues to smoke. The following work up and care recommendations were made: Dressing: Betadine to distal tuft/ulcer site and dry sterile dressing to pad and protect site. Change dressing daily Wash: Soap and water Tissue growth optimization: None Offload: Power step inserts with Aldridge's extension to bilateral foot. Recommended crest padding offloading for third digit of right foot Vascular: DP and PT pulses palpable with adequate capillary fill time. Vascular status not impacting healing. Edema: None Infection: Localized cellulitis to distal third digit, culture demonstrates strep group B. Currently on oral antibiotic as above. Pain: No pain to palpation. 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 Host factors: Neuropathy, DM type II, nicotine dependence, bilateral hallux limitus, PVD, hammertoe deformity third digit right foot I answered all the patient's questions. To return to the wound healing center in 1 week or call sooner if the patient has any questions or concerns.
== END 2024-04-14 23:59 | disposition home or self-care (01) ==
LOC: WC 09:45
PROVIDERS: PCP Nurse Practitioner Family; Referring Provider Nurse Practitioner Family; Visit Provider Student in an Organized Health Care Education/Training Program
DX: E11.621 Type 2 diabetes mellitus with foot ulcer (principal); L97.512 Non-pressure chronic ulcer of other part of right foot with fat layer exposed; G60.8 Other hereditary and idiopathic neuropathies; S90.424S Blister (nonthermal), right lesser toe(s), sequela; X58.XXXS Exposure to other specified factors, sequela; I25.10 Atherosclerotic heart disease of native coronary artery without angina pectoris; M20.41 Other hammer toe(s) (acquired), right foot; M20.5X1 Other deformities of toe(s) (acquired), right foot; M20.5X2 Other deformities of toe(s) (acquired), left foot; L03.031 Cellulitis of right toe; I10 Essential (primary) hypertension; E78.5 Hyperlipidemia, unspecified; F17.200 Nicotine dependence, unspecified, uncomplicated; Z79.2 Long term (current) use of antibiotics; Z79.82 Long term (current) use of aspirin; Z79.02 Long term (current) use of antithrombotics/antiplatelets; Z79.84 Long term (current) use of oral hypoglycemic drugs; Z79.899 Other long term (current) drug therapy; Z86.73 Personal history of transient ischemic attack (TIA), and cerebral infarction without residual deficits; Z95.5 Presence of coronary angioplasty implant and graft
CPT/HCPCS: 11042; 73630; 73660; 99213; G0463

== ENCOUNTER 2024-05-11 09:00 | Outpatient (RCR) | payer OTHER, SELFPAY ==
[2024-04-15 01:22] VITALS: BP 145/86; PULSE 75; RESP 18; TEMP 36.1; BMI 29.7
[2024-04-20 09:06] VITALS: BP 140/77; PULSE 88; RESP 18; TEMP 36.5; BMI 29.7
--- NOTE | 2024-04-20 09:30 | PCM.WC.PN ---
History of Present Illness Date of Service: 04/20/24 Chief Complaint: Left hallux wound History of Wound: Patient is a 63-year-old male who reports of new blister to the distal third digit of the right foot roughly 3 weeks duration. 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 States applying Neosporin and dry dressing daily. Patient reports recent A1c 6.7%. Denies taking medication for diabetes and does not check blood sugar. Does continue to smoke. Currently on Plavix, statin, metformin, lisinopril, and metoprolol. He states that the toe did turn a little red but denies anything of drainage from the toe. Denies having pain with the toe but states that he has neuropathy. Was seen in the wound care center in 2023 for a plantar left hallux ulceration however does not consistently wear his offloading insert and the site is developing hyperkeratosis again. Denies N/V/F/chills. Denies further complaints. Subjective Subjective This is a 63-year-old male who continues to follow with the wound care center for third digit distal tuft ulceration secondary to hammertoe deformity. Continues taking oral antibiotic. Did obtain the crest pad for offloading of the third digit, however has not been wearing this consistently as he feels he has 'too much swelling, and anything added to his foot in a shoe is uncomfortable'. Toe remains with some swelling but continues improving with antibiotic. States pain continues to decrease with antibiotics. Is continuing to pad and protect the distal digit with Band-Aid. Denies trauma. Denies constitutional symptoms. Denies further complaints. Objective Data Objective Data Vital Signs: Vital Signs Temp Pulse Resp BP O2 Del Method 97.7 F L 88 18 140/77 H Room Air 04/20/24 09:06 04/20/24 09:06 04/20/24 09:06 04/20/24 09:06 04/20/24 09:06 Oxygen Delivery Method Room Air Weight: 99.337 kg Body Mass Index (BMI) 29.7 Physical Exam Const alert, oriented x3 and no apparent distress General Appearance: cooperative HEENT normocephalic Eyes General Eye: normal appearance of both eyes Neck General: normal visual inspection Lymph Lymphatic: no lymphadenopathy noted and no lymphedema noted Resp normal respiratory effort Cardio regular rate and regular rhythm Extremity no calf tenderness Extremity Narrative: Right lower extremity: Vascular: DP and PT pulses palpable. CFT is less than 4 seconds to digits. Normal temperature gradient. There is pedal hair growth noted. Neurologic: Gross sensation intact. Protective sensation diminished secondary to diabetic peripheral polyneuropathy. Musculoskeletal: Muscle strength 5 of 5 age-appropriate. There is decreased range of motion of the ankle joint dorsiflexion with the knee extended without pain or crepitus. There is a contracture of the second and third digit noted at the proximal interphalangeal joint consistent with hammertoe deformity. No pain to palpation about ulcerative site distal third digit. Contracture of the second and third digit noted to be flexible. Decreased range of motion of the first metatarsophalangeal joint without pain or crepitus. Dermatologic: There is an ulceration at the distal tuft of the third digit secondary to hammertoe deformity. There is resolution of erythema about the ulcerative site up to PIPJ of the third digit. Edema continues to improve on oral antibiotic. Distal tuft ulceration site is continuing to epithelialize. No purulent drainage, no malodor no palpable fluctuance/bogginess noted. No lymphangitic streaking. Leg is xerotic secondary to autonomic neuropathy Left lower extremity: Vascular: DP and PT pulses palpable. CFT is less than 4 seconds to digits. Normal temperature gradient. There is pedal hair growth noted. Neurologic: Gross sensation intact. Protective sensation diminished secondary to diabetic peripheral polyneuropathy. Musculoskeletal: Muscle strength 5 of 5 age-appropriate. There is decreased range of motion of the ankle joint in dorsiflexion with the knee extended without pain or crepitus. Decreased range of motion of the first metatarsophalangeal joint achieving less than 30 degrees consistent with hallux limitus without pain or crepitus. No pain to palpation about hallux interphalangeal joint at site of hyperkeratosis. No pain to palpation of calf. Dermatologic: There is hyperkeratosis/preulcerative lesion underlying the plantar medial aspect of the hallucal interphalangeal joint. No open ulceration postdebridement of hyperkeratosis. Leg is xerotic secondary to autonomic neuropathy. Remainder of skin otherwise unremarkable. Skin no rashes or lesions noted Neuro moves all extremities Debridement Note Debridement Note No debridement was completed: No debridement was completed today Post-Debridement Measurements and Additional Note: Post-Debridement Measurements/Treatment - Nurse 1 - General Ulcer Assessment Start: 04/20/24 09:06 Freq: Status: Active Protocol: TOMMIE Activity Type Activity Date Activity User E-sign Co-sign Detail Recorded Client Recorded Date Recorded By Document 04/20/24 09:06 KW [id number] 04/20/24 09:09 KW 04/20/24 09:06 - Today's Visit Information Type of service Follow-up Visit (Physician/SUPERINTENDENT METER TESTS ) Arrival Mode Ambulatory Patient Identification Verified (Name & Yes ) Height and Weight Body Mass Index (BMI) 29.7 BMI Classification Overweight Vital Signs Temperature (97.8 F-99.1 F) 97.7 F L Temperature Source Temporal Pulse Rate (60-100) 88 Pulse Location Monitor Respiratory Rate (12-18) 18 Respiratory rate source Observation Oxygen Delivery Method Room Air Blood Pressure (90/60-120/80) 140/77 H Blood Pressure Mean (mm Hg) 98 Source Monitor Position Semi-Fowlers Blood Pressure Location Left Arm History Since Last Visit- (Skip if this is Patient's initial visit) Have you changed medications since your No last visit? Any new allergies or adverse reactions No Had a fall/change in ADL's that may No increase risk of falls Signs or symptoms of abuse and/or No neglect since last visit Have you been in the hospital since your No last visit? Has dressing in place as prescribed Yes Has compression in place as prescribed N/A Has offloadiing in place as prescribed N/A Experienced any changes in pain level or No management Left Footwear Regular Shoe Right Footwear Regular Shoe Pain Scale: 0-10 Numeric Is Patient Pain Free? Yes - Nurse 1 - General Ulcer Measurement Start: 04/20/24 09:06 Freq: Status: Active Protocol: Activity Type Activity Date Activity User E-sign Co-sign Detail Recorded Client Recorded Date Recorded By Document 04/20/24 09:06 KW [id number] 04/20/24 09:09 KW 04/20/24 09:06 Wound Center Nurse 1 2 RT 3RD TOE -Current Size (cm) - Length 0.4 -Current Size (cm) - Width 0.5 -Current Size (cm) - Depth 0.1 -Total Square Cm 0.20 -Exudate Amt Small -Exudate Type Serosanguineous -Wound Margin Distinct, Outline Attached -Granulation Amt Small (1-33%) -Granulation Quality H. Rivera Colon -Necrosis Amt Large (67-100%) -Necrotic Tissue Type Adherent Slough -Texture (Leonor-wound Skin Appearance) Assessed -Moisture (Leonor-wound Skin Appearance) Assessed -Color (Leonor-wound Skin Appearance) Assessed -Temperature (Leonor-wound Skin No Abnormality Appearance) (Pt Warm) -Tenderness on Palpation (Leonor-wound No Skin Appearance) -Ulcer Cleansing Rinsed/ Irrigated with Saline -Foul Odor after Cleansing No -Anesthetic Used 5% Lidocaine Gel - Nurse 2 - General Ulcer CM Notes Start: 04/20/24 09:06 Freq: Status: Active Protocol: Activity Type Activity Date Activity User E-sign Co-sign Detail Recorded Client Recorded Date Recorded By Document 04/20/24 09:20 [facility] [id number] 04/20/24 09:22 [facility] 04/20/24 09:20 Wound Center Nurse 2 -Time 09:20 -Procedure Performed No -Post Debridement (cm) - Length 0.1 -Post Debridement (cm) - Width 0.1 -Post Debridement (cm) - Depth 0.1 -Total Square (Post) (cm) 0.01 -Area of Debridement (cm) - Length 0.1 -Area of Debridement (cm) - Width 0.1 -Total Square (Area) (cm) 0.01 -Tunneling No -Undermining/Tunneling No -Circular Undermining No -Wound/Ulcer Outcome Not Healed -Bleeding Controlled with NA Pain Scale: 0-10 Numeric Is Patient Pain Free? Yes - Nurse 3 - General Ulcer D/C NN Start: 04/20/24 09:06 Freq: Status: Active Protocol: Activity Type Activity Date Activity User E-sign Co-sign Detail Recorded Client Recorded Date Recorded By Document 04/20/24 09:22 [facility] [id number] 04/20/24 09:24 [facility] 04/20/24 09:22 Wound Care Center Nurse 3 2 RT 3RD TOE -Other Dressing bandaid to pad/ protect Treatment Response Procedure Tolerated Well Pain Scale: 0-10 Numeric Is Patient Pain Free? Yes WC - Visit Discharge Discharge Condition Stable Ambulatory Status Ambulatory Transportation Private Auto Assessment/Plan Assessment/Plan (1) Non-pressure chronic ulcer of other part of right foot with fat layer exposed: CODE(S): L97.512 - Non-pressure chronic ulcer of other part of right foot with fat layer exposed (2) Acquired hammertoe of right foot: CODE(S): M20.41 - Other hammer toe(s) (acquired), right foot (3) Type 2 diabetes mellitus with foot ulcer: CODE(S): E11.621 - Type 2 diabetes mellitus with foot ulcer; L97.509 - Non-pressure chronic ulcer of other part of unspecified foot with unspecified severity (4) Type 2 diabetes mellitus without complications: CODE(S): E11.9 - Type 2 diabetes mellitus without complications (5) Other hereditary and idiopathic neuropathies: CODE(S): G60.8 - Other hereditary and idiopathic neuropathies (6) Cellulitis of right toe: CODE(S): L03.031 - Cellulitis of right toe (7) Hallux limitus of right foot: CODE(S): M20.5X1 - Other deformities of toe(s) (acquired), right foot (8) Hallux limitus of left foot: CODE(S): M20.5X2 - Other deformities of toe(s) (acquired), left foot PLAN: Plan Patient seen and evaluated Predebridement measurement third digit right foot: 0.1 cm by 0.1 cm x 0.1 cm Ulceration did not undergo debridement as noted in the clinical panel above. Postdebridement measurement 0.1 cm x 0.1 cm x 0.1 cm. Cultures obtained of the third digit demonstrating Strep Group B. Completed oral doxycycline 100 mg twice daily x 14 days stop date 03/19/24. He was started on additional oral antibiotic Augmentin 500mg BID x 14 days with stop date 03/30/24. Oral Augmentin was extended for an additional 28 days, and he continues taking this (new stop date 04/27/2024). Site was dressed with Band-Aid for protection of friable skin. He is instructed to change dressing daily and continue to monitor the digit. Recommended returning to and continue using crest pad for offloading third digit. Discussed this will be the only way to conservatively achieve healing. Ulceration demonstrates slight reduction in size today versus previous visit and edema continues to improved and erythema remains resolved. Discussed the importance of continued dressing changes and padding and protecting/offloading the site as he has continued to do none of this. He did undergo Radiograph 03/03/2024 of the foot demonstrating no acute osseous pathology. Due to continue digit swelling despite oral antibiotic radiograph was ordered to 03/30/2024 he obtained x-rays after leaving facility. I have reviewed the radiographs of the right foot and third digit demonstrates subtle erosive changes to the distal phalanx with significant erosive patter change in cortical disruption of the plantar lateral distal third digit extending along the plantar aspect of the middle phalanx consistent with acute osteomyelitis. Will discuss these with the patient as he will likely require amputation of the third digit at the proximal interphalangeal joint. I did discuss his radiology/images with him today. Discussed that there is signs of acute osteomyelitis in the distal phalanx which would require amputation. Patient does refuse amputation at this time and would like to continue oral antibiotics as he feels his digit is improving. Discussed that yes his redness is improving however bone infection still resides in the underlying phalanx which may not improve on oral antibiotic. Patient states he does want to continue the oral antibiotic as states I want to keep my toe. We have discussed in detail continuing oral antibiotic with continued monitoring and if infection continues to worsen or he develops systemic signs and symptoms that he would no longer have the option and would undergo amputation. He is understanding of this. Currently antibiotic is improving his edema and erythema has resolved. He would like to continue oral antibiotic and attempts to salvage the third digit. Discussed with the patient his hammertoe deformity is creating the wound as he ambulates. Discussed conservative care of offloading versus surgical intervention of flexor tenotomy. Patient continues to state he does not want to miss work and cannot work with open toed shoe/surgical shoe and thus continues to elect for conservative management at this time. I have discussed risk of infection of the digit and if oral antibiotics are not effective he may require distal Symes amputation of the third digit. He understands he is at high risk of digital amputation. Patient states he is aware of this and states if it comes to that then that is what I will do. I did again state the flexor tenotomy would be the more viable option at this time to allow for healing and improvement however continues to state he will wait as he does not want to miss work. He has previous ulceration of the plantar medial aspect of the left hallucal IPJ consistent with spinners callus secondary to hallux limitus right greater than left. Recommend continued offloading with power step inserts with the Aldridge's extension to bilateral foot. However he is not wearing inserts and presents in 'Hey-Dude' shoes or steel toe boots or Nike shoes to appointments. Discussed continued importance of offloading of bilateral first MTPJ via the Aldridge's extension on the orthotic insert otherwise he will run risk of reulceration at the left hallux. Hyperkeratosis about the left hallux was debrided today with no underlying wound. Also discussed surgical intervention of Leo osteotomy base of the left hallux versus IPJ arthroplasty. He still elects for conservative management of the left foot at this time. Discussed signs and symptoms of infection. Discussed if he notices redness progressing from the toe to the dorsal foot, purulent drainage from his wound site, increasing foul odor or darkening of tissue, or if he develops fever greater than 101 degree accompanied by nausea, vomiting, chills that these are signs of a progressing infection and he should report to the ED to receive IV antibiotics and further evaluation. He is understanding of this today. Discussed adequate protein intake to aid in wound healing. Discussed Wang supplementation which was recommended. Discussed importance of daily foot checks. Patient states that he is unable to check his own feet and his vision is starting to become poor. I discussed incorporating his to assist in these daily checks. Discussed his diabetic status and recent A1c of 6.7%. Discussed obtaining A1c is close to 6% as possible. Discussed proper diabetic diet to aid in overall health and wound healing. Discussed risks and complications of diabetes. He is understanding of our discussion and the need for continued surveillance to ensure no cuts or wounds or pressure sites to the foot. He is understanding to call the office sooner if he notices any of these. Discussed on 03/02/2024 the need for smoking cessation to aid in wound healing and for his overall health benefit. Discussed benefits from stopping smoking. Discussed risks with continued smoking including decreased blood flow to lower extremities and vital organs and overall impairment in healing and organ systems. Smoking cessation was offered. Patient currently declines at this time. Discussed if he wishes to pursue further to obtain aids to quit smoking to speak with his PCP. He states he is understanding of this. A total of 3 minutes was spent on discussion ([id number]). Despite prior discussion still continues to smoke. The following work up and care recommendations were made: Dressing: Band-Aid to pad and protect site. Change dressing daily Wash: Soap and water Tissue growth optimization: None Offload: Power step inserts with Aldridge's extension to bilateral foot. Recommended crest padding offloading for third digit of right foot Vascular: DP and PT pulses palpable with adequate capillary fill time. Vascular status not impacting healing. Edema: None Infection: Localized cellulitis to distal third digit, culture demonstrates strep group B. Currently on oral antibiotic as above. Pain: No pain to palpation. 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 Host factors: Neuropathy, DM type II, nicotine dependence, bilateral hallux limitus, PVD, hammertoe deformity third digit right foot I answered all the patient's questions. To return to the wound healing center in 1 week or call sooner if the patient has any questions or concerns.
[2024-04-27 09:02] VITALS: BP 130/73; PULSE 69; RESP 18; BMI 29.7
--- NOTE | 2024-04-27 09:25 | PN.PCM_ITS ---
History of Present Illness Date of Service: 04/27/24 Chief Complaint: Left hallux wound History of Wound: Patient is a 63-year-old male who reports of new blister to the distal third digit of the right foot roughly 3 weeks duration. 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 States applying Neosporin and dry dressing daily. Patient reports recent A1c 6.7%. Denies taking medication for diabetes and does not check blood sugar. Does continue to smoke. Currently on Plavix, statin, metformin, lisinopril, and metoprolol. He states that the toe did turn a little red but denies anything of drainage from the toe. Denies having pain with the toe but states that he has neuropathy. Was seen in the wound care center in 2023 for a plantar left hallux ulceration however does not consistently wear his offloading insert and the site is developing hyperkeratosis again. Denies N/V/F/chills. Denies further complaints. Subjective Subjective This is a 63-year-old male who continues to follow with the wound care center for third digit distal tuft ulceration secondary to hammertoe deformity. Continues taking oral antibiotic. Did obtain the crest pad for offloading of the third digit, however continues not to wear this as he feels he has 'too much swelling, and anything added to his foot in a shoe is uncomfortable'. Toe remains with some swelling distally but continues improving on antibiotic. Denies pain to the toe today. Continues to pad and protect the distal digit with Band-Aid. Denies any further trauma. Denies constitutional symptoms. Denies further complaints. Objective Data Objective Data Vital Signs: Vital Signs Temp Pulse Resp BP O2 Del Method 97.7 F L 69 18 130/73 H Room Air 04/20/24 09:06 04/27/24 09:02 04/27/24 09:02 04/27/24 09:02 04/27/24 09:02 Oxygen Delivery Method Room Air Weight: 99.337 kg Body Mass Index (BMI) 29.7 Physical Exam Const alert, oriented x3 and no apparent distress General Appearance: cooperative HEENT normocephalic Eyes General Eye: normal appearance of both eyes Neck General: normal visual inspection Lymph Lymphatic: no lymphadenopathy noted and no lymphedema noted Resp normal respiratory effort Cardio regular rate and regular rhythm Extremity no calf tenderness Extremity Narrative: Right lower extremity: Vascular: DP and PT pulses palpable. CFT is less than 4 seconds to digits. Normal temperature gradient. There is pedal hair growth noted. Neurologic: Gross sensation intact. Protective sensation diminished secondary to diabetic peripheral polyneuropathy. Musculoskeletal: Muscle strength 5 of 5 age-appropriate. There is decreased range of motion of the ankle joint dorsiflexion with the knee extended without pain or crepitus. There is a contracture of the second and third digit noted at the proximal interphalangeal joint consistent with hammertoe deformity. No pain to palpation about ulcerative site distal third digit. Contracture of the second and third digit noted to be flexible. Decreased range of motion of the f irst metatarsophalangeal joint without pain or crepitus. Dermatologic: There is an ulceration at the distal tuft of the third digit secondary to hammertoe deformity. Edema continues to improve on oral antibiotic. Distal tuft ulceration site is epithelialized. No purulent drainage, no malodor no palpable fluctuance/bogginess noted. No erythema, no lymphangitic streaking. Leg is xerotic secondary to autonomic neuropathy Left lower extremity: Vascular: DP and PT pulses palpable. CFT is less than 4 seconds to digits. Normal temperature gradient. There is pedal hair growth noted. Neurologic: Gross sensation intact. Protective sensation diminished secondary to diabetic peripheral polyneuropathy. Musculoskeletal: Muscle strength 5 of 5 age-appropriate. There is decreased range of motion of the ankle joint in dorsiflexion with the knee extended without pain or crepitus. Decreased range of motion of the first metatarsophalangeal joint achieving less than 30 degrees consistent with hallux limitus without pain or crepitus. No pain to palpation about hallux interphalangeal joint at site of hyperkeratosis. No pain to palpation of calf. Dermatologic: There is hyperkeratosis/preulcerative lesion underlying the plantar medial aspect of the hallucal interphalangeal joint. No open ulceration postdebridement of hyperkeratosis. Leg is xerotic secondary to autonomic neuropathy. Remainder of skin otherwise unremarkable. Skin no rashes or lesions noted Neuro moves all extremities Debridement Note Debridement Note No debridement was completed: No debridement was completed today Post-Debridement Measurements and Additional Note: Post-Debridement Measurements/Treatment - Nurse 1 - General Ulcer Assessment Start: 04/20/24 09:06 Freq: Status: Active Protocol: TOMMIE Activity Type Activity Date Activity User E-sign Co-sign Detail Recorded Client Recorded Date Recorded By Document 04/20/24 09:06 KW [id number] 04/20/24 09:09 KW Document 04/27/24 09:02 KW [id number] 04/27/24 09:08 KW 04/20/24 04/27/24 09:06 09:02 WC - Today's Visit Information Type of service Follow-up Visit 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 (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 ) ) Arrival Mode Ambulatory Ambulatory Patient Identification Verified (Name & Yes Yes ) Height and Weight Body Mass Index (BMI) 29.7 29.7 BMI Classification Overweight Overweight Vital Signs Temperature (97.8 F-99.1 F) 97.7 F L Temperature Source Temporal Pulse Rate (60-100) 88 69 Pulse Location Monitor Monitor Respiratory Rate (12-18) 18 18 Respiratory rate source Observation Observation Oxygen Delivery Method Room Air Room Air Blood Pressure (90/60-120/80) 140/77 H 130/73 H Blood Pressure Mean (mm Hg) 98 92 Source Monitor Monitor Position Semi-Fowlers Semi-Fowlers Blood Pressure Location Left Arm Left Arm History Since Last Visit- (Skip if this is Patient's initial visit) Have you changed medications since your No No last visit? Any new allergies or adverse reactions No No Had a fall/change in ADL's that may No No increase risk of falls Signs or symptoms of abuse and/or No No neglect since last visit Have you been in the hospital since your No No last visit? Has dressing in place as prescribed Yes Yes Has compression in place as prescribed N/A Yes Has offloadiing in place as prescribed N/A N/A Experienced any changes in pain level or No No management Left Footwear Regular Shoe Regular Shoe Right Footwear Regular Shoe Regular Shoe Pain Scale: 0-10 Numeric Is Patient Pain Free? Yes Yes - Nurse 1 - General Ulcer Measurement Start: 04/20/24 09:06 Freq: Status: Active Protocol: Activity Type Activity Date Activity User E-sign Co-sign Detail Recorded Client Recorded Date Recorded By Document 04/20/24 09:06 [id number] 04/20/24 09:09 KW Document 04/27/24 09:02 KW [id number] 04/27/24 09:08 KW 04/20/24 04/27/24 09:06 09:02 Wound Center Nurse 1 2 RT 3RD TOE -Current Size (cm) - Length 0.4 0.1 -Current Size (cm) - Width 0.5 0.1 -Current Size (cm) - Depth 0.1 0 -Total Square Cm 0.20 0.01 -Date of Last Picture (Recall this 04/27/24 field) -Exudate Amt Small None Present -Exudate Type Serosanguineous -Wound Margin Distinct, Outline Attached -Granulation Amt Small (1-33%) -Granulation Quality [place] -Necrosis Amt Large (67-100%) -Necrotic Tissue Type Adherent Slough -Texture (Leonor-wound Skin Appearance) Assessed Assessed, Localized Edema -Moisture (Leonor-wound Skin Appearance) Assessed Assessed -Color (Leonor-wound Skin Appearance) Assessed Assessed -Temperature (Leonor-wound Skin No Abnormality No Abnormality Appearance) (Pt Warm) (Pt Warm) -Tenderness on Palpation (Leonor-wound No No Skin Appearance) -Ulcer Cleansing Rinsed/ Rinsed/ Irrigated with Irrigated with Saline Saline -Foul Odor after Cleansing No No -Anesthetic Used 5% Lidocaine Gel WC - Nurse 2 - General Ulcer CM Notes Start: 04/20/24 09:06 Freq: Status: Active Protocol: Activity Type Activity Date Activity User E-sign Co-sign Detail Recorded Client Recorded Date Recorded By Document 04/20/24 09:20 [facility] [id number] 04/20/24 09:22 [facility] Document 04/27/24 09:21 [facility] [id number] 04/27/24 09:23 [facility] 04/20/24 04/27/24 09:20 09:21 Wound Center Nurse 2 2 RT 3RD TOE -Time 09:20 09:21 -Procedure Performed No -Post Debridement (cm) - Length 0.1 0.1 -Post Debridement (cm) - Width 0.1 0.1 -Post Debridement (cm) - Depth 0.1 0.1 -Total Square (Post) (cm) 0.01 0.01 -Area of Debridement (cm) - Length 0.1 0.1 -Area of Debridement (cm) - Width 0.1 0.1 -Total Square (Area) (cm) 0.01 0.01 -Tunneling No -Undermining/Tunneling No -Circular Undermining No -Wound/Ulcer Outcome Not Healed Not Healed -Bleeding Controlled with NA NA Pain Scale: 0-10 Numeric Is Patient Pain Free? Yes Yes WC - Nurse 3 - General Ulcer D/C NN Start: 04/20/24 09:06 Freq: Status: Active Protocol: Activity Type Activity Date Activity User E-sign Co-sign Detail Recorded Client Recorded Date Recorded By Document 04/20/24 09:22 [facility] [id number] 04/20/24 09:24 [facility] 04/20/24 09:22 Wound Care Center Nurse 3 2 RT 3RD TOE -Other Dressing bandaid to pad/ protect Treatment Response Procedure Tolerated Well Pain Scale: 0-10 Numeric Is Patient Pain Free? Yes WC - Visit Discharge Discharge Condition Stable Ambulatory Status Ambulatory Transportation Private Auto Assessment/Plan Assessment/Plan (1) Non-pressure chronic ulcer of other part of right foot with fat layer exposed: CODE(S): L97.512 - Non-pressure chronic ulcer of other part of right foot with fat layer exposed (2) Acquired hammertoe of right foot: CODE(S): M20.41 - Other hammer toe(s) (acquired), right foot (3) Type 2 diabetes mellitus with foot ulcer: CODE(S): E11.621 - Type 2 diabetes mellitus with foot ulcer; L97.509 - Non-pressure chronic ulcer of other part of unspecified foot with unspecified severity (4) Type 2 diabetes mellitus without complications: CODE(S): E11.9 - Type 2 diabetes mellitus without complications (5) Other hereditary and idiopathic neuropathies: CODE(S): G60.8 - Other hereditary and idiopathic neuropathies (6) Cellulitis of right toe: CODE(S): L03.031 - Cellulitis of right toe (7) Hallux limitus of right foot: CODE(S): M20.5X1 - Other deformities of toe(s) (acquired), right foot (8) Hallux limitus of left foot: CODE(S): M20.5X2 - Other deformities of toe(s) (acquired), left foot PLAN: Plan Patient seen and evaluated Predebridement measurement third digit right foot: 0.1 cm by 0.1 cm x 0.1 cm Ulceration did not undergo debridement as noted in the clinical panel above. Postdebridement measurement 0.1 cm x 0.1 cm x 0.1 cm. Cultures obtained of the third digit demonstrating Strep Group B. Completed oral doxycycline 100 mg twice daily x 14 days stop date 03/19/24. He was started on additional oral antibiotic, Augmentin 500mg BID x 14 days with stop date 03/30/24. Oral Augmentin was extended for an additional 42 days, and he continues taking this (stop date 05/11/2024). Site was dressed with Band-Aid for protection of friable skin. He is instructed to change dressing daily and continue to monitor the digit. Recommended returning to and continue using crest pad for offloading third digit. Discussed this will be the only way to conservatively achieve healing. Ulceration demonstrates improvement versus previous visit with new epithelialized skin and edema continues to improve. Discussed the importance of continued dressing changes and padding and protecting/offloading the site as he has continued to do none of this. He did undergo Radiograph 03/03/2024 of the foot demonstrating no acute osseous pathology. Due to continue digit swelling despite oral antibiotic radiograph was ordered to 03/30/2024 he obtained x-rays after leaving facility. I have reviewed the radiographs of the right foot and third digit demonstrates subtle erosive changes to the distal phalanx with significant erosive patter change in cortical disruption of the plantar lateral distal third digit extending along the plantar aspect of the middle phalanx consistent with acute osteomyelitis. Will discuss these with the patient as he will likely require amputation of the third digit at the proximal interphalangeal joint. I did discuss his radiology/images with him today. Discussed that there is signs of acute osteomyelitis in the distal phalanx which would require amputation. Patient does refuse amputation at this time and would like to continue oral antibiotics as he feels his digit is improving. Discussed that yes his redness is improving however bone infection still resides in the underlying phalanx which may not improve on oral antibiotic. Patient states he does want to continue the oral antibiotic as states I want to keep my toe. We have discussed in detail continuing oral antibiotic with continued monitoring and if infection continues to worsen or he develops systemic signs and symptoms that he would no longer have the option and would undergo amputation. He is understanding of this. Currently antibiotic is improving his edema and erythema has resolved. He would like to continue oral antibiotic and attempts to salvage the third digit. Discussed with the patient his hammertoe deformity is creating the wound as he ambulates. Discussed conservative care of offloading versus surgical intervention of flexor tenotomy. Patient continues to state he does not want to miss work and cannot work with open toed shoe/surgical shoe and thus continues to elect for conservative management at this time. I have discussed risk of infection of the digit and if oral antibiotics are not effective he may require distal Symes amputation of the third digit. He understands he is at high risk of digital amputation. Patient states he is aware of this and states if it comes to that then that is what I will do. I did again state the flexor tenotomy would be the more viable option at this time to allow for healing and improvement however continues to state he will wait as he does not want to miss work. He has previous ulceration of the plantar medial aspect of the left hallucal IPJ consistent with spinners callus secondary to hallux limitus right greater than left. Recommend continued offloading with power step inserts with the Aldridge's extension to bilateral foot. However he is not wearing inserts and presents in 'Hey-Dude' shoes or steel toe boots or Nike shoes to appointments. Discussed continued importance of offloading of bilateral first MTPJ via the Mo rton's extension on the orthotic insert otherwise he will run risk of reulceration at the left hallux. Hyperkeratosis about the left hallux was debrided today with no underlying wound. Also discussed surgical intervention of Leo osteotomy base of the left hallux versus IPJ arthroplasty. He still elects for conservative management of the left foot at this time. Discussed signs and symptoms of infection. Discussed if he notices redness progressing from the toe to the dorsal foot, purulent drainage from his wound site, increasing foul odor or darkening of tissue, or if he develops fever greater than 101 degree accompanied by nausea, vomiting, chills that these are signs of a progressing infection and he should report to the ED to receive IV antibiotics and further evaluation. He is understanding of this today. Discussed adequate protein intake to aid in wound healing. Discussed Wang supplementation which was recommended. Discussed importance of daily foot checks. Patient states that he is unable to check his own feet and his vision is starting to become poor. I discussed incorporating his to assist in these daily checks. Discussed his diabetic status and recent A1c of 6.7%. Discussed obtaining A1c is close to 6% as possible. Discussed proper diabetic diet to aid in overall health and wound healing. Discussed risks and complications of diabetes. He is understanding of our discussion and the need for continued surveillance to ensure no cuts or wounds or pressure sites to the foot. He is understanding to call the office sooner if he notices any of these. Discussed on 03/02/2024 the need for smoking cessation to aid in wound healing and for his overall health benefit. Discussed benefits from stopping smoking. Discussed risks with continued smoking including decreased blood flow to lower extremities and vital organs and overall impairment in healing and organ systems. Smoking cessation was offered. Patient currently declines at this time. Discussed if he wishes to pursue further to obtain aids to quit smoking to speak with his PCP. He states he is understanding of this. A total of 3 minutes was spent on discussion ([id number]). Despite prior discussion still continues to smoke. The following work up and care recommendations were made: Dressing: Band-Aid to pad and protect site. Change dressing daily Wash: Soap and water Tissue growth optimization: None Offload: Power step inserts with Aldridge's extension to bilateral foot. Recommended crest padding offloading for third digit of right foot Vascular: DP and PT pulses palpable with adequate capillary fill time. Vascular status not impacting healing. Edema: None Infection: Localized cellulitis to distal third digit, culture demonstrates strep group B. Currently on oral antibiotic as above. Pain: No pain to palpation. 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 Host factors: Neuropathy, DM type II, nicotine dependence, bilateral hallux limitus, PVD, hammertoe deformity third digit right foot I answered all the patient's questions. To return to the wound healing center in 2 weeks or call sooner if the patient has any questions or concerns.
--- NOTE | 2024-04-28 12:00 | WC ---
PHOTO 04/27/24 RIGHT 3RD TOE
[2024-05-11 09:03] VITALS: BP 136/76; PULSE 73; RESP 16; TEMP 35.9; BMI 29.7
--- NOTE | 2024-05-11 09:34 | PN.PCM_ITS ---
History of Present Illness Date of Service: 05/11/24 Chief Complaint: Left hallux wound History of Wound: Patient is a 63-year-old male who reports of new blister to the distal third digit of the right foot roughly 3 weeks duration. 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 States applying Neosporin and dry dressing daily. Patient reports recent A1c 6.7%. Denies taking medication for diabetes and does not check blood sugar. Does continue to smoke. Currently on Plavix, statin, metformin, lisinopril, and metoprolol. He states that the toe did turn a little red but denies anything of drainage from the toe. Denies having pain with the toe but states that he has neuropathy. Was seen in the wound care center in 2023 for a plantar left hallux ulceration however does not consistently wear his offloading insert and the site is developing hyperkeratosis again. Denies N/V/F/chills. Denies further complaints. Subjective Subjective This is a 63-year-old male who continues to follow with the wound care center for third digit distal tuft ulceration secondary to hammertoe deformity. Continues taking oral antibiotic. Did obtain the crest pad for offloading of the third digit, however continues not to wear this as he feels he has 'too much swelling, and anything added to his foot in a shoe is uncomfortable'. Toe remains with some swelling distally but continues improving on antibiotic. States wound remains closed and looks good. Denies pain to the toe today. Continues to pad and protect the distal digit with Band-Aid. Denies any further trauma. Denies constitutional symptoms. Denies further complaints. Objective Data Objective Data Vital Signs: Vital Signs Temp Pulse Resp BP O2 Del Method 96.7 F L 73 16 136/76 H Room Air 05/11/24 09:03 05/11/24 09:03 05/11/24 09:03 05/11/24 09:03 05/11/24 09:03 Oxygen Delivery Method Room Air Weight: 99.337 kg Body Mass Index (BMI) 29.7 Physical Exam Const alert, oriented x3 and no apparent distress General Appearance: cooperative HEENT normocephalic Eyes General Eye: normal appearance of both eyes Neck General: normal visual inspection Lymph Lymphatic: no lymphadenopathy noted and no lymphedema noted Resp normal respiratory effort Cardio regular rate and regular rhythm Extremity no calf tenderness Extremity Narrative: Right lower extremity: Vascular: DP and PT pulses palpable. CFT is less than 4 seconds to digits. Normal temperature gradient. There is pedal hair growth noted. Neurologic: Gross sensation intact. Protective sensation diminished secondary to diabetic peripheral polyneuropathy. Musculoskeletal: Muscle strength 5 of 5 age-appropriate. There is decreased range of motion of the ankle joint dorsiflexion with the knee extended without pain or crepitus. There is a contracture of the second and third digit noted at the proximal interphalangeal joint consistent with hammertoe deformity. No pain to palpation about ulcerative site distal third digit. Contracture of the second and third digit noted to be flexible. Decreased range of motion of the first metatarsophalangeal joint without pain or crepitus. Dermatologic: There is an ulceration at the distal tuft of the third digit secondary to hammertoe deformity. Edema continues to improve on oral antibiotic. Distal tuft ulceration site is healed. No signs of infection. Leg is xerotic secondary to autonomic neuropathy Left lower extremity: Vascular: DP and PT pulses palpable. CFT is less than 4 seconds to digits. Normal temperature gradient. There is pedal hair growth noted. Neurologic: Gross sensation intact. Protective sensation diminished secondary to diabetic peripheral polyneuropathy. Musculoskeletal: Muscle strength 5 of 5 age-appropriate. There is decreased range of motion of the ankle joint in dorsiflexion with the knee extended without pain or crepitus. Decreased range of motion of the first metatarsophalangeal joint achieving less than 30 degrees consistent with hallux limitus without pain or crepitus. No pain to palpation about hallux interphalangeal joint at site of hyperkeratosis. No pain to palpation of calf. Dermatologic: There is hyperkeratosis/preulcerative lesion underlying the plantar medial aspect of the hallucal interphalangeal joint. No open ulceration postdebridement of hyperkeratosis. Leg is xerotic secondary to autonomic neuropathy. Remainder of skin otherwise unremarkable. Skin no rashes or lesions noted Neuro moves all extremities Debridement Note Debridement Note No debridement was completed: No debridement was completed today Post-Debridement Measurements and Additional Note: Post-Debridement Measurements/Treatment WC - Nurse 1 - General Ulcer Assessment Start: 04/20/24 09:06 Freq: Status: Active Protocol: TOMMIE Activity Type Activity Date Activity User E-sign Co-sign Detail Recorded Client Recorded Date Recorded By Document 04/20/24 09:06 KW [id number] 04/20/24 09:09 KW Document 04/27/24 09:02 KW [id number] 04/27/24 09:08 KW Document 05/11/24 09:03 KW [id number] 05/11/24 09:07 KW 04/20/24 04/27/24 05/11/24 09:06 09:02 09:03 WC - Today's Visit Information Type of service Follow-up Visit Follow-up Visit Follow-up Visit (Physician/MANAGER [employer] (Physician/MANAGER [employer] (Physician/MANAGER [employer] ) ) ) Arrival Mode Ambulatory Ambulatory Ambulatory Patient Identification Verified (Name & Yes Yes Yes ) Height and Weight Body Mass Index (BMI) 29.7 29.7 29.7 BMI Classification Overweight Overweight Overweight Vital Signs Temperature (97.8 F-99.1 F) 97.7 F L 96.7 F L Temperature Source Temporal Temporal Pulse Rate (60-100) 88 69 73 Pulse Location Monitor Monitor Monitor Respiratory Rate (12-18) 18 18 16 Respiratory rate source Observation Observation Observation Oxygen Delivery Method Room Air Room Air Room Air Blood Pressure (90/60-120/80) 140/77 H 130/73 H 136/76 H Blood Pressure Mean (mm Hg) 98 92 96 Source Monitor Monitor Monitor Position Semi-Fowlers Semi-Fowlers Semi-Fowlers Blood Pressure Location Left Arm Left Arm Left Arm History Since Last Visit- (Skip if this is Patient's initial visit) Have you changed medications since your No No No last visit? Any new allergies or adverse reactions No No No Had a fall/change in ADL's that may No No No increase risk of falls Signs or symptoms of abuse and/or No No No neglect since last visit Have you been in the hospital since your No No No last visit? Has dressing in place as prescribed Yes Yes Yes Has compression in place as prescribed N/A Yes N/A Has offloadiing in place as prescribed N/A N/A N/A Experienced any changes in pain level or No No No management Left Footwear Regular Shoe Regular Shoe Regular Shoe Right Footwear Regular Shoe Regular Shoe Regular Shoe Pain Scale: 0-10 Numeric Is Patient Pain Free? Yes Yes Yes WC - Nurse 1 - General Ulcer Measurement Start: 04/20/24 09:06 Freq: Status: Active Protocol: Activity Type Activity Date Activity User E-sign Co-sign Detail Recorded Client Recorded Date Recorded By Document 04/20/24 09:06 KW [id number] 04/20/24 09:09 KW Document 04/27/24 09:02 KW [id number] 04/27/24 09:08 KW Document 05/11/24 09:03 KW [id number] 05/11/24 09:07 KW 04/20/24 04/27/24 05/11/24 09:06 09:02 09:03 Wound Center Nurse 1 2 RT 3RD TOE -Current Size (cm) - Length 0.4 0.1 0.1 -Current Size (cm) - Width 0.5 0.1 0.1 -Current Size (cm) - Depth 0.1 0 0 -Total Square Cm 0.20 0.01 0.01 -Date of Last Picture (Recall this 04/27/24 05/11/24 field) -Exudate Amt Small None Present None Present -Exudate Type Serosanguineous -Wound Margin Distinct, Outline Attached -Granulation Amt Small (1-33%) -Granulation Quality [place] -Necrosis Amt Large (67-100%) -Necrotic Tissue Type Adherent Slough -Texture (Leonor-wound Skin Appearance) Assessed Assessed, Assessed Localized Edema -Moisture (Leonor-wound Skin Appearance) Assessed Assessed Assessed -Color (Leonor-wound Skin Appearance) Assessed Assessed Assessed -Temperature (Leonor-wound Skin No Abnormality No Abnormality No Abnormality Appearance) (Pt Warm) (Pt Warm) (Pt Warm) -Tenderness on Palpation (Leonor-wound No No No Skin Appearance) -Ulcer Cleansing Rinsed/ Rinsed/ Rinsed/ Irrigated with Irrigated with Irrigated with Saline Saline Saline -Foul Odor after Cleansing No No No -Anesthetic Used 5% Lidocaine Gel WC - Nurse 2 - General Ulcer CM Notes Start: 04/20/24 09:06 Freq: Status: Active Protocol: Activity Type Activity Date Activity User E-sign Co-sign Detail Recorded Client Recorded Date Recorded By Document 04/20/24 09:20 [facility] [id number] 04/20/24 09:22 [facility] Document 04/27/24 09:21 [facility] [id number] 04/27/24 09:23 [facility] Document 05/11/24 09:12 [facility] [id number] 05/11/24 09:15 [facility] 04/20/24 04/27/24 05/11/24 09:20 09:21 09:12 Wound Center Nurse 2 2 RT 3RD TOE -Time 09:20 09:21 09:12 -Procedure Performed No No -Post Debridement (cm) - Length 0.1 0.1 0 -Post Debridement (cm) - Width 0.1 0.1 0 -Post Debridement (cm) - Depth 0.1 0.1 0 -Total Square (Post) (cm) 0.01 0.01 0 -Area of Debridement (cm) - Length 0.1 0.1 0 -Area of Debridement (cm) - Width 0.1 0.1 0 -Total Square (Area) (cm) 0.01 0.01 0 -Tunneling No No -Undermining/Tunneling No No -Circular Undermining No No -Wound/Ulcer Outcome Not Healed Not Healed Healed- Epithelialized -Bleeding Controlled with NA NA NA Pain Scale: 0-10 Numeric Is Patient Pain Free? Yes Yes Yes - Nurse 3 - General Ulcer D/C NN Start: 04/20/24 09:06 Freq: Status: Active Protocol: Activity Type Activity Date Activity User E-sign Co-sign Detail Recorded Client Recorded Date Recorded By Document 04/20/24 09:22 [facility] [id number] 04/20/24 09:24 [facility] Document 04/27/24 09:25 [facility] [id number] 04/27/24 09:25 [facility] 04/20/24 04/27/24 09:22 09:25 Wound Care Center Nurse 3 2 RT 3RD TOE -Other Dressing bandaid to pad/ bandaid protect Treatment Response Procedure Tolerated Well Pain Scale: 0-10 Numeric Is Patient Pain Free? Yes Yes - Visit Discharge Discharge Condition Stable Stable Ambulatory Status Ambulatory Ambulatory Transportation Private Auto Private Auto Assessment/Plan Assessment/Plan (1) Non-pressure chronic ulcer of other part of right foot with fat layer exposed: CODE(S): L97.512 - Non-pressure chronic ulcer of other part of right foot with fat layer exposed (2) Acquired hammertoe of right foot: CODE(S): M20.41 - Other hammer toe(s) (acquired), right foot (3) Type 2 diabetes mellitus with foot ulcer: CODE(S): E11.621 - Type 2 diabetes mellitus with foot ulcer; L97.509 - Non-pressure chronic ulcer of other part of unspecified foot with unspecified severity (4) Type 2 diabetes mellitus without complications: CODE(S): E11.9 - Type 2 diabetes mellitus without complications (5) Other hereditary and idiopathic neuropathies: CODE(S): G60.8 - Other hereditary and idiopathic neuropathies (6) Cellulitis of right toe: CODE(S): L03.031 - Cellulitis of right toe (7) Hallux limitus of right foot: CODE(S): M20.5X1 - Other deformities of toe(s) (acquired), right foot (8) Hallux limitus of left foot: CODE(S): M20.5X2 - Other deformities of toe(s) (acquired), left foot PLAN: Plan Patient seen and evaluated Predebridement measurement third digit right foot: Healed Ulceration did not undergo debridement as noted in the clinical panel above. Postdebridement status is healed. Cultures obtained of the third digit demonstrating Strep Group B. Completed oral doxycycline 100 mg twice daily x 14 days stop date 03/19/24. He was started on additional oral antibiotic, Augmentin 500mg BID x 14 days with stop date 03/30/24. Oral Augmentin was extended for an additional 42 days, and he continues taking this (stop date 05/11/2024). He has 1 week currently remaining to complete 6 weeks of oral antibiotic therapy. Site was dressed with Band-Aid for protection. He is instructed to change dressing daily and continue to monitor the digit. Recommended returning to and continue using crest pad for offloading third digit. Discussed this will be the only way to conservatively achieve healing. Ulceration demonstrates improvement versus previous visit with healed status of his ulceration site achieved. Discussed the importance of padding and protecting/offloading the site as he has continued to do none of this. He did undergo Radiograph 03/03/2024 of the foot demonstrating no acute osseous pathology. Due to continue digit swelling despite oral antibiotic radiograph was ordered to 03/30/2024 he obtained x-rays after leaving facility. I have reviewed the radi ographs of the right foot and third digit demonstrates subtle erosive changes to the distal phalanx with significant erosive patter change in cortical disruption of the plantar lateral distal third digit extending along the plantar aspect of the middle phalanx consistent with acute osteomyelitis. Will discuss these with the patient as he will likely require amputation of the third digit at the pr oximal interphalangeal joint. I did discuss his radiology/images with him today. Discussed that there is signs of acute osteomyelitis in the distal phalanx which would require amputation. Patient does refuse amputation at this time and would like to continue oral antibiotics as he feels his digit is improving. Discussed that yes his redness is improving however bone infection still resides in the underlying phalanx which may not improve on oral antibiotic. Patient states he does want to continue the oral antibiotic as states I want to keep my toe. We have discussed in detail continuing oral antibiotic with continued monitoring and if infection continues to worsen or he develops systemic signs and symptoms that he would no longer have the option and would undergo amputation. He is understanding of this. Currently antibiotic is improving his edema and erythema has resolved. He would like to continue oral antibiotic and attempts to salvage the third digit. Discussed with the patient his hammertoe deformity is creating the wound as he ambulates. Discussed conservative care of offloading versus surgical intervention of flexor tenotomy. Patient continues to state he does not want to miss work and cannot work with open toed shoe/surgical shoe and thus continues to elect for conservative management at this time. I have discussed risk of infection of the digit and if oral antibiotics are not effective he may require distal Symes amputation of the third digit. He understands he is at high risk of digital amputation. Patient states he is aware of this and states if it comes to that then that is what I will do. I did again state the flexor tenotomy would be the more viable option at this time to allow for healing and improvement however continues to state he will wait as he does not want to miss work. He has previous ulceration of the plantar medial aspect of the left hallucal IPJ consistent with spinners callus secondary to hallux limitus right greater than left. Recommend continued offloading with power step inserts with the Aldridge's extension to bilateral foot. However he is not wearing inserts and presents in 'Hey-Dude' shoes or steel toe boots or Nike shoes to appointments. Discussed continued importance of offloading of bilateral first MTPJ via the Aldridge's extension on the orthotic insert otherwise he will run risk of reulceration at the left hallux. Hyperkeratosis about the left hallux was debrided today with no underlying wound. Also discussed surgical intervention of Leo osteotomy base of the left hallux versus IPJ arthroplasty. He still elects for conservative management of the left foot at this time. Discussed signs and symptoms of infection. Discussed if he notices redness progressing from the toe to the dorsal foot, purulent drainage from his wound site, increasing foul odor or darkening of tissue, or if he develops fever greater than 101 degree accompanied by nausea, vomiting, chills that these are signs of a progressing infection and he should report to the ED to receive IV antibiotics and further evaluation. He is understanding of this today. Discussed adequate protein intake to aid in wound healing. Discussed Wang supplementation which was recommended. Discussed importance of daily foot checks. Patient states that he is unable to check his own feet and his vision is starting to become poor. I discussed incorporating his to assist in these daily checks. Discussed his diabetic status and recent A1c of 6.7%. Discussed obtaining A1c is close to 6% as possible. Discussed proper diabetic diet to aid in overall health and wound healing. Discussed risks and complications of diabetes. He is understanding of our discussion and the need for continued surveillance to ensure no cuts or wounds or pressure sites to the foot. He is understanding to call the office sooner if he notices any of these. Discussed on 03/02/2024 the need for smoking cessation to aid in wound healing and for his overall health benefit. Discussed benefits from stopping smoking. Discussed risks with continued smoking including decreased blood flow to lower extremities and vital organs and overall impairment in healing and organ systems. Smoking cessation was offered. Patient currently declines at this time. Discussed if he wishes to pursue further to obtain aids to quit smoking t o speak with his PCP. He states he is understanding of this. A total of 3 minutes was spent on discussion ([id number]). Despite prior discussion still continues to smoke. The following work up and care recommendations were made: Dressing: Band-Aid to pad and protect site or continue offloading with crest pad Wash: Soap and water Tissue growth optimization: None Offload: Power step inserts with Aldridge's extension to bilateral foot. Recommended crest padding offloading for third digit of right foot Vascular: DP and PT pulses palpable with adequate capillary fill time. Vascular status not impacting healing. Edema: None Infection: Localized cellulitis to distal third digit, culture demonstrates strep group B. Currently on oral antibiotic as above. Pain: No pain to palpation. 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 Host factors: Neuropathy, DM type II, nicotine dependence, bilateral hallux limitus, PVD, hammertoe deformity third digit right foot With his healed status achieved he is being discharged from the wound care center today. It has been discussed with him thoroughly that he needs to continue to check feet daily for any signs of ulcerations as he has had history with this. He is understanding that being diabetic also places him at higher risk of aggressive infection. He was instructed to return to the wound care center if reulceration occurs or to go to the ED he notices signs of infection. He is understanding of this. I answered all the patient's questions. To return to the wound healing center as needed or call sooner if the patient has any questions or concerns.
--- NOTE | 2024-05-12 09:33 | WC ---
PHOTO 05/11/24 RIGHT THIRD TOE
== END 2024-05-15 23:59 | disposition home or self-care (01) ==
LOC: WC 09:00
PROVIDERS: PCP Nurse Practitioner Family; Referring Provider Nurse Practitioner Family; Visit Provider Student in an Organized Health Care Education/Training Program
DX: E11.621 Type 2 diabetes mellitus with foot ulcer (principal); L97.512 Non-pressure chronic ulcer of other part of right foot with fat layer exposed; E11.40 Type 2 diabetes mellitus with diabetic neuropathy, unspecified; L03.031 Cellulitis of right toe; S90.424A Blister (nonthermal), right lesser toe(s), initial encounter; X58.XXXA Exposure to other specified factors, initial encounter; I25.10 Atherosclerotic heart disease of native coronary artery without angina pectoris; M20.41 Other hammer toe(s) (acquired), right foot; Z79.2 Long term (current) use of antibiotics; M20.5X1 Other deformities of toe(s) (acquired), right foot; M20.5X2 Other deformities of toe(s) (acquired), left foot; G60.8 Other hereditary and idiopathic neuropathies; I10 Essential (primary) hypertension; E78.5 Hyperlipidemia, unspecified; F17.200 Nicotine dependence, unspecified, uncomplicated; Z79.02 Long term (current) use of antithrombotics/antiplatelets; Z79.82 Long term (current) use of aspirin; Z79.84 Long term (current) use of oral hypoglycemic drugs; Z79.899 Other long term (current) drug therapy; Z86.73 Personal history of transient ischemic attack (TIA), and cerebral infarction without residual deficits; Z95.5 Presence of coronary angioplasty implant and graft
CPT/HCPCS: 99212; 99213; G0463